=== PATIENT | female | born 1985 | race Caucasian/White ===

== ENCOUNTER → 2023-03-04 09:40 | Outpatient (CLI) | payer BC, SELFPAY ==
--- NOTE | ~2023-03-04 | US_ITS ---
EXAMINATION: US pelvic complete w TV DATE: 03/04/2023 10:06 INDICATION: Unspecified ovarian cyst, unspecified side. TECHNIQUE: Multiple transabdominal and transvaginal sonographic images of the pelvis were obtained. COMPARISON: None. FINDINGS: TRANSABDOMINAL ULTRASOUND: The uterus measures 8.4 x 4.6 x 5.2 cm. There is physiologic free fluid in the pelvis. TRANSVAGINAL ULTRASOUND: The endometrial complex measures 8 mm in thickness. There are small nabothian cysts in the cervix. Th e right ovary measures 3.3 x 2.2 x 2.9 cm. There is normal vascular flow in right ovary. The left ova ry is not visualized. IMPRESSION: 1. Normal right ovary. 2. Left ovary not visualized. The patient reports a history of left oophorectomy. Reviewed, dictated and finalized at location A. IMPRESSION: 1. Normal right ovary. 2. Left ovary not visualized. The patient reports a history of left oophorectom y.
== END ==
PROVIDERS: PCP Physician Assistant; Visit Provider Obstetrics & Gynecology
DX: N83.209 Unspecified ovarian cyst, unspecified side (principal)
CPT/HCPCS: 76830; 76856

== ENCOUNTER 2024-01-02 10:15 | Outpatient (CLI) | payer BC, SELFPAY ==
--- NOTE | ~2024-01-02 | MMUS_ITS ---
EXAMINATION: MM diagnostic kassandra BI w elinor, US breast BI complete HISTORY: Microcalcification follow-up TECHNIQUE: ML, MLO and CC 3-D tomosynthesis images of both breasts. were performed and synthetic 2-D images were generated. CAD analysis was submitted and interpreted. High resolution complete bilateral breast ultrasound examination including all 4 quadrants and subareolar area of each breast was perfo rmed. COMPARISON: 07/17/2023 bilateral screening mammogram BREAST PARENCHYMAL COMPOSITION: The breasts are heterogeneously dense, which may obscure small masses . FINDINGS: MAMMOGRAPHIC FINDINGS: Numerous bilateral benign-appearing microcalcifications are noted. No suspicious mass or architectura l distortion, malignant calcification, skin thickening or retraction or significant new or developing density is detected. ULTRASOUND: Right breast: 4:00 1 cm from nipple: 6.2 x 6.5 x 5.6 mm septated cyst 6:00 3 cm from nipple: 5.6 x 9.6 x 8.2 mm cyst 7:00 4 cm from nipple: 3.3 mm cyst Anechoic 4 cm from nipple: 8 x 8.2 x 5 mm cyst Limited colectomy centimeters from nipple: 8 x 5.6 x 8 mm cyst 11:00 2 cm from nipple: 10 x 11.5 x 4.7 mm mildly septated cyst Left breast: 2:00 3 cm from nipple: 4 x 5.2 mm cyst 5:00 1 cm from nipple, a well-circumscribed hypoechoic 8 x 3.5 x 7.5 mm solid area without internal v ascularity posterior shadowing, benign in appearance IMPRESSION: 1. No evidence of malignancy 2. Routine annual mammographic screening is recommended BI-RADS Category 2: Benign finding(s). Reviewed, dictated and finalized at location A. IMPRESSION: 1. No evidence of malignancy 2. Routine annual mammographic screening is recommended BI-RADS Category 2: Benign finding(s).
== END 2024-01-02 10:16 | disposition home or self-care (01) ==
LOC: ANHIMG 10:16
PROVIDERS: PCP Physician Assistant; Visit Provider Surgery
DX: R92.8 Other abnormal and inconclusive findings on diagnostic imaging of breast (principal); R92.0 Mammographic microcalcification found on diagnostic imaging of breast
CPT/HCPCS: 76641; 77062; 77066; G0279

== ENCOUNTER 2024-07-06 12:44 | Outpatient (CLI) | payer BC, SELFPAY ==
--- NOTE | ~2024-07-06 | MMUS_ITS ---
EXAMINATION: US breast BI complete, MM diagnostic kassandra BI w elinor HISTORY: Follow-up breast masses TECHNIQUE: Additional 3-D tomosynthesis images of the breasts were performed and synthetic 2-D images were generated. CAD analysis was submitted and interpreted. High resolution bilateral complete breas t ultrasound was performed. COMPARISON: Comparison to multiple prior studies sequentially, with oldest reviewed study dated 07/03. BREAST PARENCHYMAL COMPOSITION: Dense: The breasts are extremely dense, which lowers the sensitivity of mammography. FINDINGS: MAMMOGRAPHIC FINDINGS: There are bilateral breast masses some of which are smaller and some increase in size compared with p rior examination. Many of these were characterized as benign cyst on prior study. There are scattered benign calcifications. No architectural distortion or suspicious calcifications. ULTRASOUND: Complete US of all 4 quadrants of the breast/s and retroareolar region was reviewed. Right breast: At 4:00, 1 cm from the nipple there is a cluster of cysts, largest measuring 7 mm. At 6 :00, 3 cm from the nipple there is a 11 mm cyst. At 7:00, 4 cm from the nipple there is a 5 mm cyst. At 9:00, 4 cm from the nipple there is a 1.3 cm cyst. At 11:00, 2 cm from the nipple there is a compl icated 1.3 cm cyst with low-level internal echoes. Left breast: There are multiple cysts of the left breast. There is a new irregular shaped hypoechoic 8 mm mass at 3:00, 5 cm from the nipple with posterior acoustic enhancement and no internal vasculari ty. The mass seen in prior examination and the left breast at 5:00, 1 cm from the nipple is not seen currently. IMPRESSION: 1. New irregular shaped left breast mass at 3:00, 5 cm from the nipple measuring 8 mm. 2. Ultrasound-guided left breast biopsy recommended. BI-RADS category 4, suspicious findings. Reviewed, dictated and finalized at location B. H PIECER IMPRESSION: 1. New irregular shaped left breast mass at 3:00, 5 cm from the nipple measurin g 8 mm. 2. Ultrasound-guided left breast biopsy recommended. BI-RADS category 4, suspicious findings.
== END 2024-07-06 12:45 | disposition home or self-care (01) ==
LOC: ANHIMG 12:45
PROVIDERS: PCP Physician Assistant; Visit Provider Surgery
DX: N63.25 Unspecified lump in the left breast, overlapping quadrants (principal); R92.8 Other abnormal and inconclusive findings on diagnostic imaging of breast; R92.0 Mammographic microcalcification found on diagnostic imaging of breast
CPT/HCPCS: 76641; 77062; 77066; G0279

== ENCOUNTER 2024-08-10 08:30 | Outpatient (CLI) | payer BC, SELFPAY ==
--- NOTE | ~2024-08-10 | MMUS_ITS ---
US breast biopsy LT w image, MM post biopsy diagnostic LT EXAMINATION: US GUIDED NEEDLE BIOPSY WITH VACUUM ASSISTANCE DATE: 08/10/2024 09:45 MEDICAL INSURANCE BILLER INDICATION: Left breast mass seen on prior examination. Ultrasound-guided core biopsy is requested t o evaluate for malignancy. BREAST PARENCHYMAL COMPOSITION: Dense: The breasts are extremely dense, which lowers the sensitivity of mammography. TECHNIQUE AND FINDINGS: The risks and potential benefits of the procedure were discussed with the patient, and written inform ed consent was obtained. After sterile preparation of the left breast, 1% lidocaine was utilized for local anesthesia. 1% lidocaine with epinephrine was used for deep anesthesia. A 10G vacuum-assisted biopsy gun needle was advanced through to the outer edge of the region of inter est from a lateral approach utilizing sonographic guidance. A total of 4 tissue core samples were ob tained through the lesion. An Inrad tissue marker clip was then placed at the biopsy site. Hemostasi s was achieved. The patient tolerated procedure well and there was no evidence of immediate complication. The patien t was given verbal instructions partly is from the department. Left breast mammograms to document ti ssue marker clip placement. The tissue samples were submitted to surgical pathology for histologic an alysis. IMPRESSION: 1. Successful ultrasound-guided vacuum-assisted biopsy of left breast mass with post procedure mammo gram for marker placement. Please refer to pathology report for histologic analysis. Reviewed, dictated and finalized at location B. [employer] INSURANCE BILLER IMPRESSION: 1. Successful ultrasound-guided vacuum-assisted biopsy of left breast mass wit h post procedure mammogram for marker placement. Please refer to pathology repo rt for histologic analysis.
== END 2024-08-10 08:31 | disposition home or self-care (01) ==
PROVIDERS: PCP Physician Assistant; Visit Provider Physician Assistant Surgical
DX: R92.8 Other abnormal and inconclusive findings on diagnostic imaging of breast (principal); N60.12 Diffuse cystic mastopathy of left breast; N62 Hypertrophy of breast; Z98.890 Other specified postprocedural states
CPT/HCPCS: 19083; 77065; 88305; A4648

== ENCOUNTER 2024-10-14 13:08 | Outpatient (CLI) | payer BC, SELFPAY ==
--- NOTE | ~2024-10-14 | MMUS_ITS ---
EXAMINATION: US breast RT complete, MM diagnostic kassandra RT w elinor HISTORY: History of cyst. Palpable abnormality. TECHNIQUE: Additional 3-D tomosynthesis images of the right breast were performed and synthetic 2-D i mages were generated. CAD analysis was submitted and interpreted. High resolution complete right alvarez st ultrasound was performed. COMPARISON: Comparison to multiple prior studies sequentially, with oldest reviewed study dated 07/03. BREAST PARENCHYMAL COMPOSITION: Dense: The breasts are extremely dense, which lowers the sensitivity of mammography. FINDINGS: MAMMOGRAPHIC FINDINGS: There are multiple benign scattered breast calcifications. There are obscured masses throughout the r ight breast. There is no architectural distortion. ULTRASOUND: Complete US of all 4 quadrants of the breast/s and retroareolar region was reviewed. There are multip le cysts scattered throughout the right breast, largest measuring 1.4 cm at 6:00, 3 cm from the nippl e and 1.4 cm at 9:00, 4 cm from the nipple. No suspicious masses to suggest malignancy. IMPRESSION: 1. Multiple right breast cysts corresponding to masses identified on mammography. No evidence for mal ignancy. 2. Routine yearly screening mammogram and regular clinical breast examination are recommended. BI-RADS Category 2: Benign finding(s). Reviewed, dictated and finalized at location B. NO SLOT SUPERVISOR IMPRESSION: 1. Multiple right breast cysts corresponding to masses identified on mammograph y. No evidence for malignancy. 2. Routine yearly screening mammogram and regular clinical breast examination a re recommended. BI-RADS Category 2: Benign finding(s).
--- OUTSIDE RECORDS SUMMARY | 2024-10-14 13:18 | XMS_ITS | Encounter Summary ---
Author Organization [facility] Healthcare Address [address] [place] [id number] Care Team Providers Care Director Compliance Name Role Phone Sara Dutton Primary Care Prov ider Reason for Referral * Diagnostic Imaging (Routine) - Pending Review Specialty Diagnoses / Procedures Referred By Contac t Referred To Contact Diagnoses Breast cyst, right Procedures US Breast Limited right Anatoly Gill MD [address] [place] [address] [address] [place] [id number] Phone: tel: fax: External Order Referral ID Status Reason Start Date Expiration Date V isits Requested Visits Authorized [id number] Pending Review 09/30/2024 10/30/2025 1 1 OLEUM PLANT OPERATOR * Diagnostic Imaging (Routine) - Authorized Specialty Diagnoses / Procedures Referred By Contac t Referred To Contact Diagnoses Breast cyst, right Procedures Diagnostic Mammogram Right W Rony Anatoly Gill MD [address] [place] [address] [address]OU[address] [place] [id number] Phone: tel: fax: External Order Referral ID Status Reason Start Date Expiration Date V isits Requested Visits Authorized [id number] Authorized 09/30/2024 10/30/2025 1 1 OLEUM PLANT OPERATOR Reason for Visit * Reason Onset Date Comments Right Breast, Cyst 09/30/2024 Encounter Details Date Type Department Care Team (Late st Contact Info) Description 09/30/2024 Telephone [facility] [address] [place] [id number] Anatoly Gill MD 4 [facility] [address] [place] [address] Right Breast, Cyst Social History Tobacco Use Types Packs/Day Years Used Date Smoking Tobacco: Never Smokeless Tobacco: Never Alcohol Use Standard Drinks/Week Comments No 0 (1 standard drink = 0.6 oz pur e alcohol) Humiliation, Afraid, Rape, and Kick questionnair e Answer Date Recorded Within the last year, have y ou been afraid of your partner or ex-partner? No 09/25/2023 Within the last year, have y ou been humiliated or emotionally abused in other ways by your partner or ex-partner? No Within the last year, have y ou been kicked, hit, slapped, or otherwise physically hurt by your partner or ex-partner? No 09/25/2023 Within the last year, have y ou been raped or forced to have any kind of sexual activity by your partner or ex-partner? No 09/25/2023 AUDIT-C Answer Date Recorded Q1: How often do you have a drink containing alcohol? Never 09/25/2023 Q2: How many drinks containi ng alcohol do you have on a typical day when you are drinking? Patient does not drink Q3: How often do you have si x or more drinks on one occasion? 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 They will do the right breast US, but requesting the right Diagnostic MMG just in case. Order faxed to [phone]. Pt aware. Pt to call back with appt date. OLEUM PLANT OPERATOR * Telephone Encounter - Catrachita Pratt RN - 09/30/2024 10:22 AM PETROLEUM PLANT OPERATOR Pt had a Bilateral Diagnostic MMG and US at [facility] (see under Media) on 07-10-24 that was a bi rads 4, of the left breast. Right breast had multiple cysts noted. See report. Pt came in to the office yesterday for her WWE and has started to feel the 6:00 right breast cyst, which she hasn't felt before. JT wanted a 3 month right breast US for a follow up to eval the cyst. LMOM with [facility] MMG Dept to see if they can get her in. Will request pathology to scan in of the left breast as well. OLEUM PLANT OPERATOR documented in this encounter Plan of Treatment Scheduled Orders Name Type Priority Associated Diagnoses Orde r Schedule Diagnostic Mammogram Right W Rony Imaging Schedule Routine, Read Routine (OP Routine) Breast cyst, right Expected: 09/30/2024, Expires: 11/28/2025 US Breast Limited right Imaging Schedule Routine, Read Routine (OP Routine) Breast cyst, right Expected: 09/30/2024, Expires: 11/28/2025 documented as of this encounter Visit Diagnoses Diagnosis Breast cyst, right- Primary documented in this encounter Care Teams Director Compliance Relationship Specialty Start Date End Date Sara Dutton PA PCP - General Neurosurgery 09/25/23 documented as of this encounter
--- OUTSIDE RECORDS SUMMARY | 2024-10-14 13:18 | XMS_ITS | Clinical Summary ---
Author Organization [facility] Address [address] [place] [address] Phone Care Team Providers Care Day Care Aide Name Role Phone Unavailable Unavailable Unavailable Reason for Visit and Chief Complaint * PHONE CALL Problems Includes: Problems addressed during this encounter and other active Problems All Visits Onset Date Resolved Date Provider Condition S tatus Mitral Valve Prolapse 11/07/2016 CARIN GILL RN NP BC Active Last Documented On 7 3:44PM ; [facility] Previous Leep 11/01/2014 EDOUARD SCHMITZ NP-BC Active Last Documented On 5 3:37PM ; [facility] Asthma 12/16/2013 EDOUARD SCHMITZ NP-BC Act abad Last Documented On 4 11:15AM ; [facility] ANXIETY STATE NOS 07/18/2012 TWAN MONTGOMERY MD A ctive Last Documented On 2 3:33PM ; [facility] Herpes Simplex Type II 07/18/2012 CARIN GILL RN NP BC Active Last Documented On 7 4:09PM ; [facility] HYPERTENSION NOS 07/18/2012 TWAN MONTGOMERY MD Ac tive Last Documented On 2 3:28PM ; [facility] 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 TWAN Saavedra MD Active Last Documented On 2 3:30PM ; [facility] Plan of Treatment No Plan of Treatment Recorded Assessments Includes: Assessments from this encounter No Assessments Recorded Medical Equipment - Implanted Devices Includes: Current Devices No Medical Equipment Recorded Medications Includes: Medications discussed during this encounter and other current Medications Current Medications (continue as prescribed) Nystatin [id number] External Cream 11/07/2016 Pro vider: Diagnosis: Last Documented On 11/07/2016 3:53PM By NICOLE LI MA ; [facility] Advair Diskus 250-50 MCG/DOSE IN AEPB 07/18/2012 Pro vider: Diagnosis: once daily. Last Documented On 2 3:08PM By MESSI DEL ANGEL LPN ; [facility] Past Medications on file ValACYclovir HCl 500MG Oral Tablet 12/03/2017 - 11/28/2018 Provider: CARIN WOODALL Diagnosis: Herpesviral infe ction, unspecified 1 daily Last Documented On 8 11:47AM By CARIN DOAN ; [facility] Terconazole 0.4% Vaginal Cream 11/11/2017 - 12/02/2017 Provider: CARIN WOODALL Diagnosis: Acute vulvitis as directed apply bid to perineum Last Documented On 8 4:21PM By CARIN DOAN ; [facility] Classic 28-0.8MG Oral Tablet 11/11/2017 - 11/06/2018 Provider: CARIN WADE Diagnosis: Encounter for ot h general cnsl and advice on procreation 1 daily Last Documented On 8 4:21PM By CARIN DOAN ; [facility] Plus 27-1MG Oral Tablet 11/07/2016 - 11/02/2017 Provider: CARIN WOODALL Diagnosis: Encounter for ot h general cnsl and advice on procreation TAKE DIRECTED W/FOOD Last Documented On 7 4:22PM By CARIN DONA ; [facility] Azithromycin 500MG Oral Tablet 11/07/2016 - 11/08/2016 Provider: CARIN WADE Diagnosis: Acute vaginitis as directed 2 TABLETS NOW Last Documented On 7 4:39PM By CARIN DOAN ; [facility] Terconazole 0.4% Vaginal Cream 11/07/2016 - 11/21/2016 Provider: CARIN WOODALL BC Diagnosis: Acute vaginitis 1 ADELINE IN VAGINA EVERY NIGHT X 7 USE 2 TIMES DAILY TO PERINEUM Last Documented On 7 4:39PM By CARIN MENDIOLA ; [facility] Valtrex 500 MG Tablet 11/17/2015 - 11/11/2016 Provider: EDOUARD MENDIOLA Diagnosis: Herpesviral infe ction, unspecified One tablet daily Last Documented On 6 10:44AM By EDOUARD SCHMITZ MARI ; [facility] Ibuprofen 600 MG Tablet 03/29/2015 - 04/03/2015 Provider: CARIN GILL RN CHRISTA BC Diagnosis: Inflam Disease O f Breast 1 every 6 hours as needed US E DIRECTED W/FOOD Last Documented On 5 4:01PM By CARIN MENDIOLA ; [facility] Bactrim DS 800-160 MG Tablet 03/29/2015 - 04/08/2015 Provider: CARIN GILL RN CHRISTA BC Diagnosis: Inflam Disease O f Breast One tablet twice a day ONE T AB 2 TIMES A DAY WITH FOOD Last Documented On 5 3:51PM By CARIN MENDIOLA ; [facility] Cephalexin 250 MG OR CAPS 07/27/2014 - 07/30/2014 Prov ider: TWAN MONTGOMERY MD Diagnosis: Last Documented On 07/27/2014 9:11AM By TWAN MONTGOMERY MD ; [facility] Levothyroxine Sodium 50 MCG OR TABS 07/13/2014 - 09/11/2014 Provider: TWAN MONTGOMERY MD Diagnosis: Last Documented On 07/13/2014 4:36PM By TWAN MONTGOMERY MD ; [facility] Macrobid 100 MG OR CAPS 06/03/2014 - 06/10/2014 Provid er: EDOUARD MENDIOLA Diagnosis: DYSURIA Last Documented On 4 2:55PM By EDOUARD SCHMITZ MARI ; [facility] Macrobid 100 MG OR CAPS 02/15/2014 - 02/22/2014 Provid er: TWAN MONTGOMERY MD Diagnosis: Last Documented On 02/15/2014 4:26PM By TWAN MONTGOMERY MD ; [facility] Levora 0.15/30 (28) 0.15-30 MG-MCG OR TABS 04/27/2013 - 08/10/2013 Provider: TWAN MONTGOMERY MD Diagnosis: TAKE 1 TABLET BY MOUTH DAILY CONTINUOUSLY. SKIP PLACEBO TABLETS. Last Documented On 04/27/2013 9:28AM By TWAN MONTGOMERY MD ; [facility] Valtrex 500 MG OR TABS 09/01/2012 - 08/27/2013 Provide r: TWAN MONTGOMERY MD Diagnosis: TAKE ONE TABLET BY MOUTH DAILY Last Documented On 09/01/2012 10:40AM By TWAN MONTGOMERY MD ; [facility] Machelle 3-0.03 MG OR TABS 05/18/2012 - 06/15/2012 Provid er: TWAN MONTGOMERY MD Diagnosis: TAKE 1 TABLET BY MOUTH DAILY Last Documented On 05/18/2012 7:36PM By TWAN MONTGOMERY MD ; [facility] Ocella 3-0.03 MG OR TABS 07/25/2010 - 06/26/2011 Provi marine: TWAN MONTGOMERY MD Diagnosis: Last Documented On 07/25/2010 10:13AM By TWAN MONTGOMERY MD ; [facility] Shante 28 3-0.03 MG OR TABS 07/04/2010 - 06/05/2011 Pr ovider: TWAN MONTGOMERY MD Diagnosis: Last Documented On 07/04/2010 9:04AM By TWAN MONTGOMERY MD ; [facility] Valtrex 500 MG OR TABS 12/29/2009 - 06/27/2010 Provide r: TWAN MONTGOMERY MD Diagnosis: Last Documented On 12/29/2009 9:25AM By TWAN MONTGOMERY MD ; [facility] Medications Administered Includes: Administered Medications from this encounter No Administered Medications Recorded Results Includes: Results discussed during this encounter No Results Recorded For Specified Dates History of Present Illness Includes: History of Present Illness from this encounter No History of Present Illness Recorded Social History No Social History Recorded - Smoking Status Unknown Medical History Includes: Medical History addressed during this encounter No Medical History Recorded Family History Includes: Family History addressed during this encounter Description Last Updated Fraternal history of hypercholesterolemi a dad 11/03/2015 Last Documented On 8 9:49AM ; [facility] Maternal grandmother's history of malign ant female breast neoplasm MGM 11/03/2015 Last Documented On 8 9:49AM ; [facility] Maternal history of hypertension mom 11/2015 Last Documented On 8 9:49AM ; [facility] Paternal grandmother's history of diabet es mellitus PGM and PGF 11/03/2015 Last Documented On 8 9:49AM ; [facility] Spouse name: Kun 12/16/2013 Last Documented On 8 9:49AM ; [facility] Family history of hypercholesterolemia d ad 12/16/2013 Last Documented On 8 9:49AM ; [facility] Family history of hypertension mom 12/16 Last Documented On 8 9:49AM ; [facility] Family history of diabetes mellitus PGM and PGF 09/07/2013 Last Documented On 8 9:49AM ; [facility] Family history of malignant female breas t neoplasm MGM 09/07/2013 Last Documented On 8 9:49AM ; [facility] Family history of Cancer 10/06/2009 Last Documented On 8 9:49AM ; [facility] Family history of Diabetes 10/06/2009 Last Documented On 8 9:49AM ; [facility] Family medical history of high blood pre ssure 10/06/2009 Last Documented On 8 9:49AM ; [facility] Review of Systems Includes: Review of Systems from this encounter No Review of Systems Recorded Mental Status Includes: Mental Status from this encounter No Mental Status Recorded Functional Status Includes: Functional Status from this encounter No Functional Status Recorded Physical Exam Includes: Physical Exam from this encounter No Physical Exam Recorded Allergies Includes: Active Allergies Substance Type Reaction Onset Date Resolved Date Statu s Penicillin V Potassium Allergy Skin Rash es / Eruption of skin, Hives / Urticaria 08/06/2013 Active Last Documented On 8 2:18PM ; [facility] Macrobid Allergy 11/07/2016 Active Last Documented On 8 2:18PM ; [facility] Amoxicillin Allergy Skin Rashes / Er uption of skin, Hives / Urticaria 11/07/2016 Active Last Documented On 8 2:18PM ; [facility] Encounters Encounter Provider Location Date Check-In Time Check-Out Time Diagnosis * PHONE CALL TWAN MONTGOMERY MD 12/25/2017 9:48AM 11:59PM Clinical Notes Includes: Clinical Notes from this encounter No Clinical Notes Recorded
--- OUTSIDE RECORDS SUMMARY | 2024-10-14 13:18 | XMS_ITS | Clinical Summary ---
Author Organization [facility] Address [address] [place] [address] Phone Care Team Providers Care Automotive Tire Technician Name Role Phone Unavailable Unavailable Unavailable Reason for Visit and Chief Complaint PELVIC W/TVT Problems Includes: Problems addressed during this encounter and other active Problems All Visits Onset Date Resolved Date Provider Condition S tatus Mitral Valve Prolapse 11/07/2016 CARIN GILL RN NP BC Active Last Documented On 7 3:44PM ; [facility] Previous Leep 11/01/2014 EDOUARD SCHMITZ NP-BC Active Last Documented On 5 3:37PM ; [facility] Asthma 12/16/2013 EDOUARD SCHMITZ NP-BC Act abad Last Documented On 4 11:15AM ; [facility] ANXIETY STATE NOS 07/18/2012 TWAN MONTGOMERY MD A ctive Last Documented On 2 3:33PM ; [facility] Herpes Simplex Type II 07/18/2012 CARIN GILL RN NP BC Active Last Documented On 7 4:09PM ; [facility] HYPERTENSION NOS 07/18/2012 TWAN MONTGOMERY MD Ac tive Last Documented On 2 3:28PM ; [facility] 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 TWAN Saavedra MD Active Last Documented On 2 3:30PM ; [facility] Plan of Treatment No Plan of Treatment Recorded Assessments Includes: Assessments from this encounter No Assessments Recorded Medical Equipment - Implanted Devices Includes: Current Devices No Medical Equipment Recorded Medications Includes: Medications discussed during this encounter and other current Medications Current Medications (continue as prescribed) Nystatin [id number] External Cream 11/07/2016 Pro vider: Diagnosis: Last Documented On 11/07/2016 3:53PM By NICOLE LI MA ; [facility] Advair Diskus 250-50 MCG/DOSE IN AEPB 07/18/2012 Pro vider: Diagnosis: once daily. Last Documented On 2 3:08PM By MESSI DEL ANGEL LPN ; [facility] Medications Administered Includes: Administered Medications from this [...] Includes: Family History addressed during this encounter No Family History Recorded Review of Systems Includes: Review of Systems [...] Active Last Documented On 8 2:18PM ; [facility] Macrobid Allergy 11/07/2016 Active Last Documented On 8 2:18PM ; [facility] Amoxicillin Allergy Skin Rashes / Er uption of skin, Hives / Urticaria 11/07/2016 Active Last Documented On 8 2:18PM ; [facility] Encounters Encounter Provider Location Date Check-In Time Check-Out Time Diagnosis PELVIC W/TVT TWAN MONTGOMERY MD [facility] [employer] 8 7:42AM 8:03AM Clinical Notes Includes: Clinical Notes from this encounter No Clinical Notes Recorded
--- OUTSIDE RECORDS SUMMARY | 2024-10-14 13:18 | XMS_ITS | Encounter Summary ---
Author Organization [facility] Address [address] [place] [address] Phone Care Team Providers Care Grant Writer Name Role Phone Sara Dutton PAC Primary Care Pro vider Linus Eldridge MD Unavailable Beatriz Snyder APRN, ASSOCIATE PROGRAMMER Unavailable Reason for Visit * Reason Comments Medication Refill Encounter Details Date Type Department Care Team (Late st Contact Info) Description 06/20/2023 Refill [facility] - Internal Medicine - [place] [address] [place] [address] Sara Dutton, PAC [address] [place] [address] Medication Refill Social History Tobacco Use Types Packs/Day Years Used Date Smoking Tobacco: Never Smokeless Tobacco: Never Alcohol Use Standard Drinks/Week Comments No 0 (1 standard drink = 0.6 oz pur e alcohol) PHQ-2 Answer Date Recorded Total Score - Questions 1-9 4 06/03 Education Answer Date Recorded What is the highest level of school you have completed or the highest degree you have received? 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 Internal Medicine [facility] [address] [place] [address] Sara Dutton, [facility] [address] [place] [address] 01/11/2025 1:15 PM CDT Office Visit [facility] [address] [place] [phone] Linus Eldridge MD [address] [place] [phone] documented as of this encounter Goals Goal Patient Goal Type Associated Problems Recent Progress Patient-Stated? Author Behavioral Health Behavioral Health On track(2021 9:10 AM CDT) Yes Hiral Gardner LCSW Note: I need to cope better with my anxiety Goal/Objective: Decrease anxiety. Anticipated Time Frame for Goal Completion: 6 months Goal Reviewed with: patient Readiness to change: Ready to change Department associated with goal: [facility] Steps to achieve goal: will identify at least two coping skills/activities/habits that have helped to manage anxiety in the past. will identify at least three new coping skills/activities/habits that may help to prevent and/or cope with anxiety. 3. will identify a plan to implement coping skills and follow this plan for two weeks and evaluate the impact on anxiety 4. Will attend individual and/or group therapy at least 1x/month at least 6 sessions anxiety Behavioral Health On track(2021 9:10 AM CDT) No Hiral Gardner LCSW Note: Goal/Objective: Increase coping skills to manage stress. Anticipated Time Frame for Goal Completion: 6 months Goal Reviewed with: patient Readiness to change: Ready to change Department associated with goal: [facility] Steps to achieve goal: will attend counseling/psychotherapy at least 6 sessions at least once monthly, utilizing individual and/or group sessions to express thoughts and feelings. will verbalize understanding of depression and anxiety, ex: causes/contributing and risk factors, prevalence of conditions in the general population. will identify two or more skills to gain peace and relieve stress. documented as of this encounter Visit Diagnoses Not on filedocumented in this encounter Additional Health Concerns Infection Onset Date Last Indicated Resolved Time COVID - 19 09/12/2023 09/12/2023 09/22/2023 12:1 6 AM IRONER Assessment Noted Time PHQ-9 Depression Total Score: 4 06/21/20 22 8:00 AM CDT documented as of this encounter Care Teams Grant Writer Relationship Specialty Start Date End Date Sara Dutton PAC [address] [place] [address] PCP - General Physician Bear Keeper 10/15/17 Linus Eldridge MD [address] [place] [address] Consulting Physician Pulmonary Disease 12/07/21 Beatriz Snyder APRN, ASSOCIATE PROGRAMMER [address] [place] [address] Nurse Practitioner Advanced Practice Nurse 03/14/23 documented as of this encounter
--- OUTSIDE RECORDS SUMMARY | 2024-10-14 13:18 | XMS_ITS | Encounter Summary ---
Author Organization [facility] Address [address] [place] [address] Care Team Providers Care Director Of Extension Work Name Role Phone Sara Dutton PA-C Primary Care Pr ovider Encounter Details Date Type Department Care Team (Late Contact Info) Description 03/06/2020 Lab Requisition [facility] [address] [place] [address] Unknown, Provider Social History Tobacco Use Types Packs/Day Years Used Date Smoking Tobacco: Never Assessed Sex and Gender Information Value Date Recorded Sex Assigned at Not on file Gender Identity Not on file Sexual Orientation Not on file documented as of this encounter Plan of Treatment Upcoming Encounters Date Type Department Care Team (Late Contact Info) Description 11/09/2024 1:15 PM CDT Office Visit [facility] - General Surgery [address] [place] [phone] [place] MD [facility] [address] [place] [id number] documented as of this encounter Procedures Procedure Name Priority Date/Time Associated Diagnosis Comments SARS-COV-2 (COVID-19) IN HOUSE Routine 03/05/2020 10:20 AM CDT documented in this encounter Results * SARS-COV-2 (COVID-19) IN HOUSE (03/05/2020 10:20 AM CDT) COVID-19 PCR Not detected Not detected, Invalid 03/07/2020 6:16 AM CDT [facility] Microbiology SPECIMEN FROM NASOPHARYNGEAL STRUCTURE / Unknown Collection / Unknown 03/05/2020 10:20 AM CDT 03/06/2020 1:32 PM CDT Narrative [facility] - 03/07/2020 6:16 AM CDT This Real Time RT-PCR assay was developed and its performance characteristics determined by [facility]. This test has been authorized by the Food and Drug administration (FDA)under an Emergency Use Authorization (EUA). This test has been validated in accordance with the FDA's guidance document Policy for Diagnostic Testing in Laboratories Certified to perform High Complexity Testing under CLIA prior to Emergency Use Authorization for Coronavirus Disease-2019 during the Public Health Emergency issued on October 31, 2019. FDA independent review of this validation is pending. This test is only authorized for the duration of time the declaration that circumstances exist justifying the authorization of emergency use of in vitro diagnostic tests for detection of SARS-CoV-2 virus and/or diagnosis of COVID-19 infection under section 564(b)(1) of the Act, 21 U.S.C 360bbb-3 (b)(1), unless the authorization is terminated or revoked sooner. Provider Unknown LAB - MICROBIOLOGY O RDERABLES [facility] [address] [place], [place] [address], [facility] [phone] documented in this encounter Visit Diagnoses Not on filedocumented in this encounter Additional Health Concerns Infection Onset Date Last Indicated Resolved Time COVID-19 Under Investigation 03/06/2020 03/05/2020 03/07/2020 6:16 AM CDT documented as of this encounter Care Teams Director Of Extension Work Relationship Specialty Start Date End Date Sara Dutton PA-C [address] [place] [address] PCP - General Physician Livestock Yard Attendant 09/30/23 documented as of this encounter
--- OUTSIDE RECORDS SUMMARY | 2024-10-14 13:18 | XMS_ITS | Clinical Summary ---
Author Organization [facility] Address [address] [place] [address] Care Team Providers Care Operations Administrator Name Role Phone Sara Dutton Primary Care Prov ider Allergies Active Allergy Reactions Criticality Noted Date Comments Amoxicillin Buspirone Other (See comments) Low 06/21/2022 insomnia Escitalopram Nausea only Low 06/21/2022 Fatigue; nausea Nitrofurantoin Other Unknown 09/25/2023 PCN Penicillins Sulfa (Sulfonamide Antibiotics) Shortness of breath High 05/30/2018 Sulfamethazine Shortness of breath High 12/18/2017 Medications albuterol HFA (PROAIR HFA) 90 mcg/actuation inhaler inhale 2 puff by inhalation route every 4 - 6 hours as needed 0 Inhaler 0 6 Active fluticasone-sa lmeterol (ADVAIR DISKUS) 100-50 mcg/dose diskus inhaler inhale 1 puff by inhalation route 2 times every day in the morning and evening approximately 12 hours apart 1 5 5 Active famotidine (PEPCID) 20 mg tablet Take 1 tablet (20 mg total) by mouth 2 (two) times a day 3 Active Active Problems Problem Noted Date Diagnosed Date Endometriosis 04/26/2024 Overview (04/26/2024): Of right diaphragm with pneumothorax status post surgery at [facility] March 14. History of pneumothorax 04/26/2024 Overview (04/26/2024): Secondary to endometriosis of the right diaphragm treated by thoracic surgery at [facility] on March 14, 2024. Malignant melanoma of left u pper extremity including shoulder 09/25/2023 Asthma 02/08/2015 Overview (12/06/2016): Asthma Encounters Date Type Department Care Team Description 09/30/2024 Telephone [facility] [address] [facility] [address] [place] [address] Anatoly Gill MD Right Breast, Cyst 09/29/2024 1:15 PM TELE MARKETING EXECUTIVE Office Visit [facility] [address] [place] [address] Anatoly Gill MD Well woman exam (Primary Dx); Encounter for screening mammogram for malignant neoplasm of breast; Breast cyst, right; History of pneumothorax from Last 3 Months Immunizations Name Administration Dates Next Due Pneumococcal Polysaccharide PPV23 08/09/2015 Surgical History Surgery Date Site/Laterality Comments OTHER SURGICAL HISTORY L ovary removed laperoscope 10/2006 OTHER SURGICAL HISTORY oophorectomy of left ovary OTHER SURGICAL HISTORY 2013 : OTHER SURGICAL HISTORY 2017 Incomplete AB: Suction D and C CERVICAL BIOPSY W/ LOOP ELECTRODE EXCISION DILATION AND CURETTAGE OF UTERUS Medical History Medical History Date Comments Hx Other Medical 10/2006 endometriosis; Comments: KOBY 08/03/2016 - Asthma Asthma; Comments : KOBY 08/03/2016 - Disorder of thyroid Thyroid dise ase Exposure to genital herpes Genit al herpes, exposure Hx Other Medical ; Outc ome: 40W0D week 7lb(s) 5 oz Male Hx Other Medical Incomplete AB Abnormal Pap smear of cervix Melanoma (HCC) Family History Medical History Relation Name Comments Hyperlipidemia Father High Choleste rol; Breast cancer Maternal Grandmother Cancer , breast; Hypertension Mother Hypertension; Heart disease Paternal Grandfather Heart disease; Ovarian cancer Neg Hx Thyroid cancer Neg Hx Relation Name Status Comments Father Maternal Grandmother Mother Paternal Grandfather Social History Tobacco Use Types Packs/Day Years Used Date Smoking Tobacco: Never Smokeless Tobacco: Never Tobacco Cessation:Counseling Given: Not Answered Alcohol Use Standard Drinks/Week Comments No 0 [...] on file Legal Sex Female 2:17 PM TELE MARKETING EXECUTIVE Gender Identity Not on file Sexual Orientation Not on file Obstetrics History Para Term AB IAB SAB Ectopic Multiple Livin g Live Births 3 2 2 1 1 2 2 Date Outcome GA Total Labor Labor/2nd/3rd Weight Sex Type Anes PTL [facility] A1 A5 Name Clin 07/22 14 Term 40w 0d 3.317 kg (7 lb 5 oz) M Vag-Spo nt Living 09/21 17 SAB 01/19 19 Term 3.317 kg (7 lb 5 oz) F Vaginal None Living Complications:None Last Filed Vital Signs Vital Sign Reading Time Taken Comments Blood Pressure 108/74 09/29/2024 1:25 PM TELE MARKETING EXECUTIVE Pulse 97 09/06/2017 5:41 PM TELE MARKETING EXECUTIVE Temperature 36.4 C (97.5 F) 09/06/2017 5:41 PM TELE MARKETING EXECUTIVE Respiratory Rate 16 09/06/2017 5:41 PM TELE MARKETING EXECUTIVE Oxygen Saturation 99% 09/06/2017 5:41 PM TELE MARKETING EXECUTIVE Inhaled Oxygen Concentration - - Weight 51.7 kg (114 lb) 09/29/2024 1:25 PM TELE MARKETING EXECUTIVE Height 162.6 cm (5' 4 ) 09/29/2024 1:25 PM TELE MARKETING EXECUTIVE Body Mass Index 19.57 09/29/2024 1:25 PM TELE MARKETING EXECUTIVE Plan of Treatment Health Maintenance Due Date Last Done Comments Depression Screening 1983 Hepatitis C Screening 1983 Hepatitis B Screening 2001 Varicella Vaccines (2 of 2 - 13+ 2-dose series) 08/12/2014 07/15/2014 Pneumococcal vaccine <65 (2 of 2 - PCV) 08/09/2016 08/09/2015 Covid-19 Vaccine ( season) 2024 06/08/2022, 08/02/2021, 11/22/2020, Additional history exists Influenza Vaccine (#1) 2024 , 06/05/2022, 06/08/2021, Additional history exists Breast Cancer Screening-Mammogram 08/13/2024 08/13/2023, 08/13/2023, 07/17/2023, Additional history exists Cervical Cancer Screening 09/29/20252024, 09/25/2023, 08/03/2016, Additional history exists Regular Well Visit/Exam 18-64 09/29/2025 09/29/2024, 09/25/2023 DTaP/Tdap/Td Vaccine (3 - Td or Tdap) 11/20/2028 11/20/2018, 09/02/2012 HPV Vaccines Aged Out No longer eligi ble based on patient's age to complete this topic Procedures Procedure Name Priority Date/Time Associated Diagnosis Comments PAP, REFLEX HPV Routine 09/29/2024 1:51 PM TELE MARKETING EXECUTIVE Well woman exam DIAGNOSTIC MAMMOGRAM BILATERAL W RONY Schedule Routine, Read Routine (OP Routine) 08/13/2023 8:40 AM TELE MARKETING EXECUTIVE Abnormal mammogram from Last 3 Months or Most Recently Relevant to Health Maintenance Results * Pap, reflex HPV (09/29/2024 1:51 PM TELE MARKETING EXECUTIVE) CLINICAL INFORMATION: [facility] [place] Comment:Routine exam LMP [facility] [place] Comment:09-22-24 Previous Pap [facility] [place] Comment:NONE GIVEN Prev. Bx [facility] [place] Comment:NONE GIVEN SOURCE: [facility] [place] Comment:Cervix, Endocervix Pap, specimen adequacy [facility] Comment: Satisfactory for evaluation. Endocervical/transformation zone component present. HPV interp [facility] Comment: Cytology Results: Negative for intraepithelial lesion or malignancy. COMMENTS [facility] [place] Comment: This Pap test has been evaluated with computer assisted technology. Gift Wrapper Zina Whitt In [facility] Comment: SXB, CT(ASCP) CT screening location: [facility] [place], [address] [place] [address] [place] [address] Maintenance Painter: JACKIE GARCIA MD, CLIA: [id number] Review material handling warehouse supervisor [facility] Comment: CXS, CT(ASCP) CT screening location: [facility] [place], [address] [place] [address] [place] [address] Maintenance Painter: JACKIE GARCIA MD, CLIA: [id number] Comment [facility] Comment: EXPLANATORY NOTE: The Pap is a screening test for cervical cancer. It is not a diagnostic test and is subject to false negative and false positive results. It is most reliable when a satisfactory sample, regularly obtained, is submitted with relevant clinical findings and history, and when the Pap result is evaluated along with historic and current clinical information. Thin prep 09/29/2024 1:51 PM TELE MARKETING EXECUTIVE 09/30/2024 1:52 AM TELE MARKETING EXECUTIVE us Anatoly Gill MD LAB CYTOLOGY ORDERABLES Fi nal Result [facility] [place] In [address], [facility] [place] [address] * (ABNORMAL) Diagnostic Mammogram Bilateral W [place] (08/13/2023 8:40 AM TELE MARKETING EXECUTIVE) Anatomical Region Laterality Modality Breast Bilateral Mammography 08/13/2023 11:0 2 AM TELE MARKETING EXECUTIVE Impressions 08/13/2023 11:02 AM TELE MARKETING EXECUTIVE 1. 0.9 cm group of punctate and round calcifications in the lower central posterior left breast. There are areas of the group that appears possibly linear. No definite layering is noted on the lateral view. Finding is at moderate suspicion for malignancy. Recommend stereotactic guided biopsy of the left breast. 2. The persistent focal asymmetries in the upper outer right breast at mid to posterior depth corresponds with multiple simple cysts and probably benign predominantly anechoic circumscribed masses with a septation and posterior acoustic enhancement but no internal flow measuring 0.6 cm and 0.5 cm at the 10 o'clock position 6 cm from the nipple and 11 o'clock position 8 cm from the nipple in the right breast respectively. 3. Corresponding with the partially effaced asymmetry on the lateral and MLO views of the left breast is a 0.8 cm circumscribed hypoechoic mass at the 3 o'clock position 7 cm from the nipple in the left breast. There is an additional similar appearing mass measuring 1 cm at the 4 to 5 o'clock position 7 cm from the nipple in the left breast. These findings are probably benign. OVERALL FINAL ASSESSMENT: SUSPICIOUS. BI-RADS Category 4B: Moderate suspicion for malignancy. RECOMMENDATION: 1. Stereotactically guided biopsy of the left breast for the 0.9 cm group of calcifications. 2. Bilateral diagnostic mammogram and sonogram in 6 months for the probably benign bilateral breast masses. Electronically signed by: Malissa Hernandez M.D. Narrative 08/13/2023 11:02 AM TELE MARKETING EXECUTIVE EXAMINATION: BILATERAL DIGITAL DIAGNOSTIC MAMMOGRAM INCLUDING CAD AND BILATERAL DIGITAL BREAST TOMOSYNTHESIS; BILATERAL BREAST SONOGRAM HISTORY: Further evaluation of screening mammogram detected 3 focal asymmetries in the right breast, MLO view asymmetry in the left breast, and calcifications in the left breast. COMPARISON: 07/17/2023 TECHNIQUE: Full field digital mammographic views of BOTH breasts were performed, including computer aided detection (CAD) and BILATERAL digital breast tomosynthesis (DBT). Directed ultrasound evaluation of BOTH breasts was performed. BREAST PARENCHYMAL COMPOSITION: The breasts are heterogenously dense, which may obscure small masses. MAMMOGRAM FINDINGS: Right breast: The 2 focal asymmetries in the central outer posterior right breast and the focal asymmetry in the upper outer mid right breast persists on spot compression. Left breast: There is partial effacement of the asymmetry in the central posterior left breast seen on the lateral and MLO views. There is redemonstration of the 0.9 cm group of punctate and round calcifications in the lower central posterior left breast. There are areas of the group that appears possibly linear. No definite layering is noted on the lateral view. SONOGRAM FINDINGS: Targeted sonogram of the upper outer mid to posterior right breast was performed. There are multiple simple cysts noted measuring up to 0.8 x 0.5 x 0.6 cm. However, there is a 0.5 x 0.6 x 0.6 cm predominantly anechoic circumscribed mass with a septation and posterior acoustic enhancement but no internal flow at the 10 o'clock position 6 cm from the nipple in the right breast and a similar-appearing mass at the 11 o'clock position 8 cm from the nipple in the right breast measuring 0.5 x 0.4 x 0.5 cm. Corresponding with the partially effaced and symmetry on the lateral and MLO views of the left breast is a 0.8 x 0.6 x 0.7 cm circumscribed hypoechoic mass with posterior acoustic enhancement and no internal flow at the 3 o'clock position 7 cm from the nipple in the left breast. There is an additional similar appearing mass measuring 0.8 x 0.5 x 1 cm at the 4 to 5 o'clock position 7 cm from the nipple in the left breast. Andres Rocha MD IMG MAMMO PROCEDURES Final Result from Last 3 Months or Most Recently Relevant to Health Maintenance Insurance [facility] Care Teams Operations Administrator Relationship Specialty Start Date End Date Sara Dutton PA PCP - General Neurosurgery 09/25/23
--- OUTSIDE RECORDS SUMMARY | 2024-10-14 13:18 | XMS_ITS ---
Author Organization [facility] Address [address] [place] [address] Phone Care Team Providers Care Injection Machine Operator Name Role Phone Unavailable Unavailable Unavailable Problems Includes: Active, inactive, and resolved Problems All Visits Onset Date Resolved Date Provider Condition S tatus Mitral Valve Prolapse 11/07/2016 CARIN GILL RN [facility] Active Last Documented On 7 3:44PM ; [facility] Previous Leep 11/01/2014 EDOUARD SCHMITZ CHRISTA- Active Last Documented On 5 3:37PM ; [facility] Exposure To Herpes Simplex 01/15/2014 Unknown TWAN MONTGOMERY MD Resolved Last Documented On 09/06/2014 10:16AM ; [facility] Note: was Closed. History of Abnormal Pap Smear 01/15/2014 Unknown TWAN MONTGOMERY MD Resolved Last Documented On 09/06/2014 10:16AM ; [facility] Note: was Closed. History of Depression 01/15/2014 Unknown TWAN MONTGOMERY MD Resolved Last Documented On 09/06/2014 10:16AM ; [facility] Note: was Closed. History of Heart Disease 01/15/2014 Unknown TWAN GUTIÉRREZ MD Resolved Last Documented On 09/06/2014 10:16AM ; [facility] Note: was Closed. History of Metabolic Disorders 01/15/2014 Unknown TWAN MONTGOMERY MD Resolved Last Documented On 09/06/2014 10:16AM ; [facility] Note: was Closed. History of Thyroid Disorders 01/15/2014 Unknown TWAN MONTGOMERY MD Resolved Last Documented On 09/06/2014 10:16AM ; [facility] Note: was Closed. Reported Previous Std 01/15/2014 Unknown TWAN MONTGOMERY MD Resolved Last Documented On 09/06/2014 10:16AM ; [facility] Note: was Closed. Respiratory Disorders 01/15/2014 Unknown TWAN MONTGOMERY MD Resolved Last Documented On 09/06/2014 10:16AM ; [facility] Note: was Closed. Asthma 12/16/2013 EDOUARD SCHMITZ CHRISTA-BC Active Last Documented On 4 11:15AM ; [facility] ALLERGIC RHINITIS NOS 07/18/2012 Unknown EDOUARD SCHMITZ NP-BC Resolved Last Documented On 5 3:37PM ; [facility] ANXIETY STATE NOS 07/18/2012 TWAN MONTGOMERY MD A ctive Last Documented On 2 3:33PM ; [facility] Herpes Simplex Type II 07/18/2012 CARIN GILL RN [facility] Active Last Documented On 7 4:09PM ; [facility] HYPERTENSION NOS 07/18/2012 TWAN MONTGOMERY MD Ac tive Last Documented On 2 3:28PM ; [facility] 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 TWAN Saavedra MD Active Last Documented On 2 3:30PM ; [facility] Plan of Treatment Findings Encounter Date Ordered Clinical summary pro vided to patient STAKING PRESS OPERATOR EXAM with CARIN GILL RN [facility] 11/11/2017 Last Documented On 8 3:48PM ; [facility] Ordered Clinical summary pro vided to patient STAKING PRESS OPERATOR EXAM with CARIN GILL RN [facility] 11/07/2016 Last Documented On 7 4:37PM ; [facility] Ordered Clinical summary pro vided to patient STAKING PRESS OPERATOR EXAM with EDOUARD SCHMITZ [facility]- 11/03/2015 Last Documented On 6 3:24PM ; [facility] Ordered Clinical summary pro vided to patient 1 WK CK-UP with CARIN GILL RN [facility] 04/05/2015 Last Documented On 5 4:05PM ; [facility] Ordered Clinical summary pro vided to patient STAKING PRESS OPERATOR EXAM with EDOUARD SCHMITZ [facility]- 11/01/2014 Last Documented On 5 3:50PM ; [facility] Ordered Clinical summary pro vided to patient RETURN OB EXAM with EDOUARD SCHMITZ [facility] 06/03/2014 Last Documented On 4 2:57PM ; [facility] Ordered Clinical summary pro vided to patient RETURN OB EXAM with EDOUARD SCHMITZ NP-BC 05/05/2014 Last Documented On 4 3:26PM ; [facility] Ordered Clinical summary pro vided to patient RETURN OB EXAM with EDOUARD SCHMITZ [facility] 04/05/2014 Last Documented On 4 9:26AM ; [facility] Ordered Clinical summary pro vided to patient RETURN OB EXAM with EDOUARD SCHMITZ [facility] 02/10/2014 Last Documented On 4 2:31PM ; [facility] Instructions to patient Instructions for patient : B reast Self Exam discussed and technique reviewed Last Documented On 8 3:44PM ; [facility] Instructed to call if excess abad bleeding or abdominal/pelvic pain Last Documented On 8 3:44PM ; [facility] Recommend diet and exercise at least 30 min three times per week Last Documented On 8 3:44PM ; [facility] Instructions for patient : B reast Self Exam discussed and technique reviewed Last Documented On 7 3:55PM ; [facility] Instructed to call if excess abad bleeding or abdominal/pelvic pain Last Documented On 7 3:55PM ; [facility] Recommend diet and exercise at least 30 min three times per week Last Documented On 7 3:55PM ; [facility] Instructions for patient : B reast Self Exam discussed Last Documented On 6 3:07PM ; [facility] Instructions for patient : B reast Self Exam discussed Last Documented On 5 3:26PM ; [facility] Instructions for patient : B reast Self Exam discussed and technique reviewed Last Documented On 3 2:43PM ; [facility] Use a condom during sexual i ntercourse Last Documented On 3 2:43PM ; [facility] Instructed to call if excess abad bleeding or abdominal/pelvic pain Last Documented On 3 2:43PM ; [facility] Recommend diet and exercise at least 30 min three times per week Last Documented On 3 2:43PM ; [facility] Recommend CBC, TSH, fasting glucose, fasting lipid panel if patient aged 25 or older Last Documented On 3 2:43PM ; [facility] Recommend preventative vacci nation including but not limited to influenza/flu vaccine, DTP, Rubella, Hepatitis B vaccination series Last Documented On 3 2:43PM ; [facility] Instructions for patient : B reast Self Exam discussed Last Documented On 2 3:21PM ; [facility] Instructions for patient : B reast Self Exam discussed Last Documented On 1 3:46PM ; [facility] Instructions for patient : B reast Self Exam discussed Last Documented On 0 9:03AM ; [facility] Education and Decision Aids were provided during visit for: Patient Education: Daily south cium and vitamin D Last Documented On 8 3:44PM ; [facility] Patient counseling :vaginal hygiene and use of rx Last Documented On 7 4:33PM ; [facility] Patient Education: Daily south cium and vitamin D Last Documented On 7 3:55PM ; [facility] Patient Education: Daily south cium and vitamin D Last Documented On 6 3:07PM ; [facility] Patient Education: weight be aring exercise Last Documented On 6 3:07PM ; [facility] Patient education about self -examination of breasts Last Documented On 5 4:02PM ; [facility] Patient education about self -examination of breasts Last Documented On 5 3:59PM ; [facility] Patient Education: Daily south cium and vitamin D Last Documented On 5 3:26PM ; [facility] Patient Education: weight be aring exercise Last Documented On 5 3:26PM ; [facility] New OB form given to patient SAB precautions reviewed and pnv samples given. Advised H1N1 and seasonal flu vaccine Last Documented On 4 11:06AM ; [facility] Discussed use of seat belts Last Documented On 3 2:43PM ; [facility] Patient education RE: richi serrano signals associated with hormonal contraceptive use including abdominal, chest, or leg pain, headaches or visual disturbances Last Documented On 3 2:43PM ; [facility] Patient Education: Daily south cium and vitamin D Last Documented On 3 2:43PM ; [facility] STD screening offered and de clined Last Documented On 2 3:21PM ; [facility] STD screening offered and de clined Last Documented On 1 3:46PM ; [facility] STD screening offered and de clined Last Documented On 0 9:03AM ; [facility] Assessments Includes: Assessments for all patient encounters Findings Encounter Date Cyst on the right ovary CONSULTATION with TWAN MONTGOMERY MD 12/17/2017 Last Documented On 8 5:14PM ; [facility] Endometriosis CONSULTATION with TWAN MONTGOMERY MD 12/17/2017 Last Documented On 8 5:14PM ; [facility] Female infertility CONSULTATION with TWAN FERNANDEZ ON 12/17/2017 Last Documented On 8 5:14PM ; [facility] Female pelvic pain CONSULTATION with TWAN FERNANDEZ ON 12/17/2017 Last Documented On 8 5:14PM ; [facility] NORMAL FEMALE EXAM STAKING PRESS OPERATOR EXAM with CARIN WOODALL 11/11/2017 Last Documented On 8 3:48PM ; [facility] Screen malignant neoplasm cervix STAKING PRESS OPERATOR EXAM with Autumn GILL RN CH[facility]STA 11/11/2017 Last Documented On 8 3:48PM ; [facility] NORMAL FEMALE EXAM STAKING PRESS OPERATOR EXAM with CARIN WOODALL 11/07/2016 Last Documented On 7 4:37PM ; [facility] Screen malignant neoplasm cervix STAKING PRESS OPERATOR EXAM with Autumn WOODALL 11/07/2016 Last Documented On 7 4:37PM ; [facility] Vaginitis STAKING PRESS OPERATOR EXAM with CARIN Quintero [facility] 11/07/2016 Last Documented On 7 4:37PM ; [facility] NORMAL FEMALE EXAM STAKING PRESS OPERATOR EXAM with EDOUARD Quintero [facility] 11/03/2015 Last Documented On 6 3:24PM ; [facility] Acute mastitis of the right breast RESOLVING 1 WK CK-UP with CARIN GILL RN [facility] 04/05/2015 Last Documented On 5 4:05PM ; [facility] Acute mastitis of the right breast PROBL EM VISIT with CARIN GILL RN [facility] 03/29/2015 Last Documented On 5 4:01PM ; [facility] NORMAL FEMALE EXAM STAKING PRESS OPERATOR EXAM with EDOUARD Quintero [facility] 11/01/2014 Last Documented On 5 3:50PM ; [facility] Urinary retention POST VISIT with TWAN MONTGOMERY MD 07/20/2014 Last Documented On 4 8:49AM ; [facility] Normal checkup (6 - 42 wk) RETURN OB EX AM with TWAN MONTGOMERY MD 07/13/2014 Last Documented On 4 4:37PM ; [facility] Normal checkup (6 - 42 wk) RETURN OB EX AM with TWAN MONTGOMERY MD 07/06/2014 Last Documented On 4 4:59PM ; [facility] Normal checkup (6 - 42 wk) RETURN OB EX AM with TWAN MONTGOMERY MD 06/29/2014 Last Documented On 4 4:18PM ; [facility] Normal checkup (6 - 42 wk) RETURN OB EX AM with TWAN MONTGOMERY MD 06/23/2014 Last Documented On 4 4:52PM ; [facility] Normal checkup (6 - 42 wk) * PHONE CALL with TWAN MONTGOMERY MD 06/16/2014 Last Documented On 4 9:34AM ; [facility] Normal checkup (6 - 42 wk) RETURN OB EX AM with TWAN MONTGOMERY MD 06/15/2014 Last Documented On 4 2:02PM ; [facility] Normal checkup (6 - 42 wk) RETU RN OB EXAM with EDOUARD [facility] 06/03/2014 Last Documented On 4 2:57PM ; [facility] Normal checkup (6 - 42 wk) RETURN OB EX AM with TWAN MONTGOMERY MD 05/18/2014 Last Documented On 4 9:52AM ; [facility] Normal checkup (6 - 42 wk) RETU RN OB EXAM with EDOUARD WOODALLSHERI 05/05/2014 Last Documented On 4 3:26PM ; [facility] Normal checkup (6 - 42 wk) RETURN OB EX AM with TWAN MONTGOMERY MD 04/20/2014 Last Documented On 4 4:46PM ; [facility] Normal checkup (6 - 42 wk) RETU RN OB EXAM with EDOUARD WOODALLSHERI 04/05/2014 Last Documented On 4 9:26AM ; [facility] Normal checkup (6 - 42 wk) RETURN OB EX AM with TWAN MONTGOMERY MD 03/08/2014 Last Documented On 4 2:57PM ; [facility] Normal checkup (6 - 42 wk) * PH ONE CALL with EDOUARD DOAN 02/17/2014 Last Documented On 4 10:01AM ; [facility] Normal checkup (6 - 42 wk) * PHONE CALL with TWAN MONTGOMERY MD 02/15/2014 Last Documented On 4 4:26PM ; [facility] Normal checkup (6 - 42 wk) RETU RN OB EXAM with EDOUARD WOODALLSHERI 02/10/2014 Last Documented On 4 2:31PM ; [facility] Normal checkup (6 - 42 wk) * PHONE CALL with TWAN MONTGOMERY MD 02/01/2014 Last Documented On 4 2:40PM ; [facility] Normal checkup (6 - 42 wk) NEW OB EXAM with TWAN MONTGOMERY MD 01/15/2014 Last Documented On 4 2:07PM ; [facility] Respiratory disorder Has inh aler, has never been intubated but has rec'd steroids NEW OB EXAM with TWAN MONTGOMERY MD 01/15/2014 Last Documented On 4 2:07PM ; [facility] Amenorrhea 10 4/7 weeks by Neal COLLINS with EDC 07-11-14 MISSED MENSES with EDOUARD SCHMITZ [facility] 12/16/2013 Last Documented On 4 11:36AM ; [facility] Endometriosis CONSULTATION with TWAN MONTGOMERY MD 09/07/2013 Last Documented On 4 2:48PM ; [facility] Preconception Counseling CONSULTATION with TWAN MONTGOMERY MD 09/07/2013 Last Documented On 4 2:48PM ; [facility] Routine gynecological exam STAKING PRESS OPERATOR EXAM with CARIN GILL RN [facility] 08/06/2013 Last Documented On 3 3:17PM ; [facility] Routine pelvic exam STAKING PRESS OPERATOR EXAM with TWAN MONTGOMERY MD 07/18/2012 Last Documented On 2 3:43PM ; [facility] Routine pelvic exam STAKING PRESS OPERATOR EXAM with TWAN MONTGOMERY MD 07/16/2011 Last Documented On 1 3:47PM ; [facility] Routine pelvic exam STAKING PRESS OPERATOR EXAM with TWAN MONTGOMERY MD 07/04/2010 Last Documented On 0 9:06AM ; [facility] Assessment of abnormal Pap s mear: atypical squamous cells of undetermined significance RE-PAP with TWAN MONTGOMERY MD 12/29/2009 Last Documented On 0 9:26AM ; [facility] Assessment of for high risk HPV types RE-PAP wit h TWAN MONTGOMERY MD 12/29/2009 Last Documented On 0 9:26AM ; [facility] Instructions Includes: Instructions for all patient encounters Instructions to patient Instructions for patient : B reast Self Exam discussed and technique reviewed Last Documented On 8 3:44PM ; [facility] Instructed to call if excess abad bleeding or abdominal/pelvic pain Last Documented On 8 3:44PM ; [facility] Recommend diet and exercise at least 30 min three times per week Last Documented On 8 3:44PM ; [facility] Instructions for patient : B reast Self Exam discussed and technique reviewed Last Documented On 7 3:55PM ; [facility] Instructed to call if excess abad bleeding or abdominal/pelvic pain Last Documented On 7 3:55PM ; [facility] Recommend diet and exercise at least 30 min three times per week Last Documented On 7 3:55PM ; [facility] Instructions for patient : B reast Self Exam discussed Last Documented On 6 3:07PM ; [facility] Instructions for patient : B reast Self Exam discussed Last Documented On 5 3:26PM ; [facility] Instructions for patient : B reast Self Exam discussed and technique reviewed Last Documented On 3 2:43PM ; [facility] Use a condom during sexual i ntercourse Last Documented On 3 2:43PM ; [facility] Instructed to call if excess abad bleeding or abdominal/pelvic pain Last Documented On 3 2:43PM ; [facility] Recommend diet and exercise at least 30 min three times per week Last Documented On 3 2:43PM ; [facility] Recommend CBC, TSH, fasting glucose, fasting lipid panel if patient aged 25 or older Last Documented On 3 2:43PM ; [facility] Recommend preventative vacci nation including but not limited to influenza/flu vaccine, DTP, Rubella, Hepatitis B vaccination series Last Documented On 3 2:43PM ; [facility] Instructions for patient : B reast Self Exam discussed Last Documented On 2 3:21PM ; [facility] Instructions for patient : B reast Self Exam discussed Last Documented On 1 3:46PM ; [facility] Instructions for patient : B reast Self Exam discussed Last Documented On 0 9:03AM ; [facility] Education and Decision Aids were provided during visit for: Patient Education: Daily south cium and vitamin D Last Documented On 8 3:44PM ; [facility] Patient counseling :vaginal hygiene and use of rx Last Documented On 7 4:33PM ; [facility] Patient Education: Daily south cium and vitamin D Last Documented On 7 3:55PM ; [facility] Patient Education: Daily south cium and vitamin D Last Documented On 6 3:07PM ; [facility] Patient Education: weight be aring exercise Last Documented On 6 3:07PM ; [facility] Patient education about self -examination of breasts Last Documented On 5 4:02PM ; [facility] Patient education about self -examination of breasts Last Documented On 5 3:59PM ; [facility] Patient Education: Daily south cium and vitamin D Last Documented On 5 3:26PM ; [facility] Patient Education: weight be aring exercise Last Documented On 5 3:26PM ; [facility] New OB form given to patient SAB precautions reviewed and pnv samples given. Advised H1N1 and seasonal flu vaccine Last Documented On 4 11:06AM ; [facility] Discussed use of seat belts Last Documented On 3 2:43PM ; [facility] Patient education RE: richi serrano signals associated with hormonal contraceptive use including abdominal, chest, or leg pain, headaches or visual disturbances Last Documented On 3 2:43PM ; [facility] Patient Education: Daily south cium and vitamin D Last Documented On 3 2:43PM ; [facility] STD screening offered and de clined Last Documented On 2 3:21PM ; [facility] STD screening offered and de clined Last Documented On 1 3:46PM ; [facility] STD screening offered and de clined Last Documented On 0 9:03AM ; [facility] Medical Equipment - Implanted Devices Includes: Current and historical Devices No Medical Equipment Recorded Medications Includes: Current and historical Medications Current Medications (continue as prescribed) Nystatin [id number]/GM External Cream 11/07/2016 Pro vider: Diagnosis: Last Documented On 11/07/2016 3:53PM By NICOLE LI MA ; [facility] Advair Diskus 250-50 MCG/DOSE IN AEPB 07/18/2012 Pro vider: Diagnosis: once daily. Last Documented On 2 3:08PM By MESSI DEL ANGEL LPN ; [facility] Past Medications on file ValACYclovir HCl 500MG Oral Tablet 12/03/2017 - 11/28/2018 Provider: CARIN WOODALL Diagnosis: Herpesviral infe ction, unspecified 1 daily Last Documented On 8 11:47AM By CARIN DOAN ; [facility] Terconazole 0.4% Vaginal Cream 11/11/2017 - 12/02/2017 Provider: CARIN WOODALL Diagnosis: Acute vulvitis as directed apply bid to perineum Last Documented On 8 4:21PM By CARIN DOAN ; [facility] Classic 28-0.8MG Oral Tablet 11/11/2017 - 11/06/2018 Provider: CARIN WOODALL Diagnosis: Encounter for ot h general cnsl and advice on procreation 1 daily Last Documented On 8 4:21PM By CARIN DOAN ; [facility] ValACYclovir HCl 500MG Oral Tablet 11/11/2017 - 2017 Provider: Diagnosis: Last Documented On 12/17/2017 2:18PM By Daniella Barrios MA ; [facility] Plus 27-1MG Oral Tablet 11/07/2016 - 11/02/2017 Provider: CARIN WOODALL Diagnosis: Encounter for ot h general cnsl and advice on procreation TAKE DIRECTED W/FOOD Last Documented On 7 4:22PM By CARIN DOAN ; [facility] Azithromycin 500MG Oral Tablet 11/07/2016 - 11/08/2016 Provider: CARIN WOODALL Diagnosis: Acute vaginitis as directed 2 TABLETS NOW Last Documented On 7 4:39PM By CARIN DOAN ; [facility] Terconazole 0.4% Vaginal Cream 11/07/2016 - 11/21/2016 Provider: CARIN WOODALL Diagnosis: Acute vaginitis 1 ADELINE IN VAGINA EVERY NIGHT X 7 USE 2 TIMES DAILY TO PERINEUM Last Documented On 7 4:39PM By CARIN DOAN ; [facility] ValACYclovir HCl 500MG Oral Tablet 11/07/2016 - 12/03/2017 Provider: CARIN GILL RN [facility] Diagnosis: Herpesviral infe ction, unspecified 1 daily Last Documented On 8 11:41AM By CARIN [facility]ILL [facility] ; [facility] Valtrex 500 MG Tablet 11/17/2015 - 11/11/2016 Provider: [facility]ARD [facility] Diagnosis: Herpesviral infe ction, unspecified One tablet daily Last Documented On 6 10:44AM By EDOUARD SCHMITZ [facility] ; [facility] Ibuprofen 600 MG Tablet 03/29/2015 - 04/03/2015 Provider: CARIN GILL RN [facility] Diagnosis: Inflam Disease O f Breast 1 every 6 hours as needed US E DIRECTED W/FOOD Last Documented On 5 4:01PM By CARIN [facility]ILL [facility] ; [facility] Bactrim DS 800-160 MG Tablet 03/29/2015 - 04/08/2015 Provider: CARIN GILL RN [facility] Diagnosis: Inflam Disease O f Breast One tablet twice a day ONE T AB 2 TIMES A DAY WITH FOOD Last Documented On 5 3:51PM By CARIN GILL [facility] ; [facility] Valtrex 500 MG OR TABS 11/01/2014 - 11/17/2015 Provider: EDOUARD SCHMITZ [facility] Diagnosis: HERPES SIMPLEX N OS Last Documented On 6 10:42AM By EDOUARD SCHMITZ [facility] ; [facility] Valtrex 500 MG OR TABS 10/05/2014 - 11/01/2014 Provide r: TWAN MONTGOMERY MD Diagnosis: HERPES SIMPLEX N OS Last Documented On 5 3:49PM By EDOUARD SCHMITZ [facility] ; [facility] Cephalexin 250 MG OR CAPS 07/27/2014 - 07/30/2014 Prov ider: TWAN MONTGOMERY MD Diagnosis: Last Documented On 07/27/2014 9:11AM By TWAN MONTGOMERY MD ; [facility] Colace 50 MG OR CAPS 07/20/2014 - 11/07/2016 Provider: Diagnosis: Last Documented On 11/07/2016 3:52PM By NICOLE LI MA ; [facility] Cephalexin 250 MG OR CAPS 07/20/2014 - 07/27/2014 Prov ider: Diagnosis: Last Documented On 07/27/2014 9:10AM By TWAN MONTGOMERY MD ; [facility] Levothyroxine Sodium 50 MCG OR TABS 07/13/2014 - 09/11/2014 Provider: TWAN MONTGOMERY MD Diagnosis: Last Documented On 07/13/2014 4:36PM By TWAN MONTGOMERY MD ; [facility] Macrobid 100 MG OR CAPS 06/03/2014 - 06/10/2014 Provid er: EDOUARD SCHMITZ [facility]RISTA- Diagnosis: DYSURIA Last Documented On 4 2:55PM By EDOUARD SCHMITZ CHRISTA- ; [facility] Levothyroxine Sodium 50 MCG OR TABS 04/12/2014 - 07/13/2014 Provider: TWAN MONTGOMERY MD Diagnosis: Last Documented On 07/13/2014 4:36PM By TWAN MONTGOMERY MD ; [facility] Macrobid 100 MG OR CAPS 02/15/2014 - 02/22/2014 Provid er: TWAN MONTGOMERY MD Diagnosis: Last Documented On 02/15/2014 4:26PM By TWAN MONTGOMERY MD ; [facility] Levothyroxine Sodium 50 MCG OR TABS 01/15/2014 - 04/12/2014 Provider: TWAN MONTGOMERY MD Diagnosis: Last Documented On 04/12/2014 12:03PM By TWAN MONTGOMERY MD ; [facility] Valtrex 500 MG OR TABS 09/21/2013 - 10/05/2014 Provide r: CARIN GILL RN [facility] Diagnosis: HERPES SIMPLEX N OS Last Documented On 10/05/2014 11:24AM By TWAN MONTGOMERY MD ; [facility] Valtrex 500 MG OR TABS 09/07/2013 - 11/18/2013 Provide r: Diagnosis: Last Documented On 11/18/2013 2:49PM By HARIKA JACINTO LPN ; [facility] /Folic Acid OR TABS 08/06/2013 - 12/17/2017 Provider: CARIN GILL RN [facility] Diagnosis: OTHER FAMILY KIARRA NNING ADVICE NEC Last Documented On 12/17/2017 2:18PM By Dnaiella Barrios MA ; [facility] Vitamin C 500 MG OR TABS 08/06/2013 - 12/16/2013 P rovider: Diagnosis: Last Documented On 4 11:12AM By PREMA KELSEY ; [facility] Vitamin D 2000 UNIT OR CAPS 08/06/2013 - 4 Provider: Diagnosis: Last Documented On 4 11:13AM By PREMA KELSEY ; [facility] Probiotic OR CAPS 08/06/2013 - 12/16/2013 Provider: Diagnosis: Last Documented On 4 11:13AM By PREMA KELSEY ; [facility] Levora 0.15/30 (28) 0.15-30 MG-MCG OR TABS 04/27/2013 - 08/10/2013 Provider: TWAN MONTGOMERY MD Diagnosis: TAKE 1 TABLET BY MOUTH DAILY CONTINUOUSLY. SKIP PLACEBO TABLETS. Last Documented On 04/27/2013 9:28AM By TWAN MONTGOMERY MD ; [facility] Valtrex 500 MG OR TABS 09/01/2012 - 08/27/2013 Provide r: TWAN MONTGOMERY MD Diagnosis: TAKE ONE TABLET BY MOUTH DAILY Last Documented On 09/01/2012 10:40AM By TWAN MONTGOMERY MD ; [facility] Levora 0.15/30 (28) 0.15-30 MG-MCG OR TABS 07/18/2012 - 04/27/2013 Provider: TWAN MONTGOMERY MD Diagnosis: She takes continuous active pills so actually needs this refilled every 21 days, not every 28 thanks Last Documented On 04/27/2013 9:27AM By TWAN MONTGOMERY MD ; [facility] Xanax 0.25 MG OR TABS 07/18/2012 - 12/16/2013 Provider : Diagnosis: takes prn. Last Documented On 4 11:13AM By PREMA KELSEY ; [facility] Singulair 10 MG OR TABS 07/18/2012 - 01/15/2014 Provid er: Diagnosis: takes prn Last Documented On 01/15/2014 1:04PM By FERMIN GATES ; [facility] Shante 28 3-0.03 MG OR TABS 07/18/2012 - 08/06/2013 Pr ovider: Diagnosis: takes cont for [facility] weeks[facility] Last Documented On 08/06/2013 2:26PM By NITA KELSEY ; [facility] Bystolic 5 MG OR TABS 07/18/2012 - 12/16/2013 Provider : Diagnosis: Last Documented On 4 11:13AM By PREMA KELSEY ; [facility] Valtrex 500 MG OR TABS 06/09/2012 - 09/01/2012 Provide r: TWAN MONTGOMERY MD Diagnosis: TAKE 1 TABLET BY MOUTH DAILY Last Documented On 09/01/2012 10:40AM By TWAN MONTGOMERY MD ; [facility] Machelle 3-0.03 MG OR TABS 05/18/2012 - 06/15/2012 Provid er: TWAN MONTGOMERY MD Diagnosis: TAKE 1 TABLET BY MOUTH DAILY Last Documented On 05/18/2012 7:36PM By TWAN MONTGOMERY MD ; [facility] Valtrex 500 MG OR TABS 07/23/2011 - 06/09/2012 Provide r: TWAN MONTGOMERY MD Diagnosis: Last Documented On 06/09/2012 9:10AM By TWAN MONTGOMERY MD ; [facility] Albuterol Sulfate (2.5 MG/3ML) 0.083% IN [facility] 07/16/20 - 07/18/2012 Provider: Diagnosis: Last Documented On 2 3:07PM By MESSI DEL ANGEL LPN ; [facility] Flonase 50 MCG/ACT NA SUSP 07/16/2011 - 07/18/2012 Pro vider: Diagnosis: Last Documented On 2 3:07PM By MESSI DEL ANGEL LPN ; [facility] Valtrex 500 MG OR TABS 07/16/2011 - 07/18/2012 Provide r: Diagnosis: Last Documented On 2 3:07PM By MESSI DEL ANGEL LPN ; [facility] Machelle 3-0.03 MG OR TABS 07/16/2011 - 05/18/2012 Provid er: TWAN MONTGOMERY MD Diagnosis: Last Documented On 05/18/2012 7:35PM By TWAN MONTGOMERY MD ; [facility] Machelle 3-0.03 MG OR TABS 07/10/2011 - 07/16/2011 Provid er: TWAN MONTGOMERY MD Diagnosis: Last Documented On 07/16/2011 3:46PM By TWAN MONTGOMERY MD ; [facility] Ocella 3-0.03 MG OR TABS 07/25/2010 - 06/26/2011 Provi marine: TWAN MONTGOMERY MD Diagnosis: Last Documented On 07/25/2010 10:13AM By TWAN MONTGOMERY MD ; [facility] valACYclovir HCl 500 MG OR TABS 07/18/2010 - 7 Provider: TWAN MONTGOMERY MD Diagnosis: Last Documented On 7 4:26PM By CARIN [facility] ; [facility] Shante 28 3-0.03 MG OR TABS 07/04/2010 - 06/05/2011 Pr ovider: TWAN MONTGOMERY MD Diagnosis: Last Documented On 07/04/2010 9:04AM By TWAN MONTGOMERY MD ; [facility] Shante 28 3-0.03 MG OR TABS 05/15/2010 - 07/04/2010 Pr ovider: TWAN MONTGOMERY MD Diagnosis: Last Documented On 07/04/2010 9:04AM By TWAN MONTGOMERY MD ; [facility] Valtrex 500 MG OR TABS 12/29/2009 - 06/27/2010 Provide r: TWAN MONTGOMERY MD Diagnosis: Last Documented On 12/29/2009 9:25AM By TWAN MONTGOMERY MD ; [facility] Shante 28 3-0.03 MG OR TABS 12/29/2009 - 05/15/2010 Pr ovider: TWAN MONTGOMERY MD Diagnosis: Last Documented On 05/15/2010 12:56PM By TWAN MONTGOMERY MD ; [facility] Shante 28 3-0.03 MG OR TABS 10/06/2009 - 12/29/2009 Pr ovider: TWAN MONTGOMERY MD Diagnosis: DOESN'T WANT TO TAKE NEW BCP ; WANTS TO TAKE SHANTE INSTEAD; LMP 10/01/09; [id number] CH Last Documented On 12/29/2009 9:24AM By TWAN MONTGOMERY MD ; [facility] Valtrex 500 MG OR TABS 01/18/2009 - 12/29/2009 Provide r: Diagnosis: Last Documented On 12/29/2009 9:24AM By TWAN MONTGOMERY MD ; [facility] Medications Administered Includes: Administered Medications in patient's chart No Administered Medications Recorded Results Includes: Results from 10/14/2023 through 10/14/2024 No Results Recorded For Specified Dates History of Present Illness History of Present Illness not supported for this document type No History of Present Illness Recorded Social History Description Last Updated Alcohol use: 2 drinks or less per day no ne 12/17/2017 Last Documented On 8 5:14PM ; [facility] Non-smoker 12/17/2017 Last Documented On 8 5:14PM ; [facility] Currently 11/11/2017 Last Documented On 8 3:48PM ; [facility] Activities 11/11/2017 Last Documented On 8 3:48PM ; [facility] No consumption of alcohol 11/11/2017 Last Documented On 8 3:48PM ; [facility] No recent change in sleep 11/11/2017 Last Documented On 8 3:48PM ; [facility] Nutritious and satisfying diet 8 Last Documented On 8 3:48PM ; [facility] Personal history 11/11/2017 Last Documented On 8 3:48PM ; [facility] Sexually active 11/11/2017 Last Documented On 8 3:48PM ; [facility] In monogamous relationship 11/11/2017 Last Documented On 8 3:48PM ; [facility] Smoking status : Never smoker 11/11/2017 Last Documented On 8 3:48PM ; [facility] Education history 11/07/2016 Last Documented On 7 4:37PM ; [facility] Educational level 11/07/2016 Last Documented On 7 4:37PM ; [facility] Not a smoker 11/07/2016 Last Documented On 7 4:37PM ; [facility] Procedures and Surgical History Surgical History Last Updated Surgical / procedural history Neal horn ~D & C September 2016 11/07/2016 Last Documented On 7 4:37PM ; [facility] History of Loop electrode excision of ce rvix (LEEP) 2007 TANISHA II +margins 06/03/2014 Last Documented On 4 2:57PM ; [facility] History of surgery LEEP TANISHA II 4 Last Documented On 4 2:57PM ; [facility] Medical History Includes: Medical History in patient's chart Description Last Updated Aborta 1 12/17/2017 Last Documented On 8 5:14PM ; [facility] Para 1 12/17/2017 Last Documented On 8 5:14PM ; [facility] PRIMARY CARE PROVIDER : Sara Iglesias nd 11/11/2017 Last Documented On 8 3:48PM ; [facility] 2 11/11/2017 Last Documented On 8 3:48PM ; [facility] LMP: 11/03/2017 11/11/2017 Last Documented On 8 3:48PM ; [facility] Not using contraception pt wishes to con ceive 11/11/2017 Last Documented On 8 3:48PM ; [facility] Last pap smear date 11/07/2016 11/11/2017 Last Documented On 8 3:48PM ; [facility] History of human papilloma virus infecti on 11/01/2014 Last Documented On 5 3:50PM ; [facility] History of coronary artery disease mvp 0 11/01/2014 Last Documented On 5 3:50PM ; [facility] History of cervical dysplasia TANISHA II on LEEP in 200706/03/2014 Last Documented On 4 2:57PM ; [facility] Family History Includes: Family History in patient's chart Description Last Updated Fraternal history of hypercholesterolemi a dad 11/03/2015 Last Documented On 6 3:24PM ; [facility] Maternal grandmother's history of malign ant female breast neoplasm MGM 11/03/2015 Last Documented On 6 3:24PM ; [facility] Maternal history of hypertension mom 11/2015 Last Documented On 6 3:24PM ; [facility] Paternal grandmother's history of diabet es mellitus PGM and PGF 11/03/2015 Last Documented On 6 3:24PM ; [facility] Spouse name: Kun 12/16/2013 Last Documented On 4 11:36AM ; [facility] Family history of hypercholesterolemia d ad 12/16/2013 Last Documented On 4 11:36AM ; [facility] Family history of hypertension mom 12/16 Last Documented On 4 11:36AM ; [facility] Family history of diabetes mellitus PGM and PGF 09/07/2013 Last Documented On 4 2:48PM ; [facility] Family history of malignant female breas t neoplasm MGM 09/07/2013 Last Documented On 4 2:48PM ; [facility] Family history of Cancer 10/06/2009 Last Documented On 0 3:15PM ; [facility] Family history of Diabetes 10/06/2009 Last Documented On 0 3:15PM ; [facility] Family medical history of high blood pre ssure 10/06/2009 Last Documented On 0 3:15PM ; [facility] Review of Systems Review of Systems not supported for this document type No Review of Systems Recorded Mental Status No Mental Status Recorded Functional Status No Functional Status Recorded Physical Exam Physical Exam not supported for this document type No Physical Exam Recorded Allergies Includes: Active, inactive, and resolved Allergies Substance Type Reaction Onset Date Resolved Date Statu s Penicillin V Potassium Allergy Skin Rash es / Eruption of skin, Hives / Urticaria 08/06/2013 Active Last Documented On 8 2:18PM ; [facility] Macrobid Allergy 11/07/2016 Active Last Documented On 8 2:18PM ; [facility] Amoxicillin Allergy Skin Rashes / Er uption of skin, Hives / Urticaria 11/07/2016 Active Last Documented On 8 2:18PM ; [facility] Clinical Notes Includes: Signed Clinical Notes starting from 09/21/2022 No Clinical Notes Recorded
--- OUTSIDE RECORDS SUMMARY | 2024-10-14 13:18 | XMS_ITS | Clinical Summary ---
Author Organization [facility] Address [address] [place] [address] Phone Care Team Providers Care Costing Manager Name Role Phone Unavailable Unavailable Unavailable Reason for Visit and Chief Complaint * PHONE CALL Problems Includes: Problems addressed during this encounter and other active Problems All Visits Onset Date Resolved Date Provider Condition S tatus Mitral Valve Prolapse 11/07/2016 CARIN GILL RN NP BC Active Last Documented On 7 3:44PM ; [facility] Previous Leep 11/01/2014 EDOUARD SCHMITZ NP-BC Active Last Documented On 5 3:37PM ; [facility] Asthma 12/16/2013 EDOUARD SCHMITZ NP-BC Act abad Last Documented On 4 11:15AM ; [facility] ANXIETY STATE NOS 07/18/2012 TWAN MONTGOMERY MD A ctive Last Documented On 2 3:33PM ; [facility] Herpes Simplex Type II 07/18/2012 CARIN GILL RN NP BC Active Last Documented On 7 4:09PM ; [facility] HYPERTENSION NOS 07/18/2012 TWAN MONTGOMERY MD Ac tive Last Documented On 2 3:28PM ; [facility] 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 TWAN Saavedra MD Active Last Documented On 2 3:30PM ; [facility] Plan of Treatment No Plan of Treatment Recorded Assessments Includes: Assessments from this encounter No Assessments Recorded Medical Equipment - Implanted Devices Includes: Current Devices No Medical Equipment Recorded Medications Includes: Medications discussed during this encounter and other current Medications Current Medications (continue as prescribed) Nystatin [id number] External Cream 11/07/2016 Pro vider: Diagnosis: Last Documented On 11/07/2016 3:53PM By NICOLE LI MA ; [facility] Advair Diskus 250-50 MCG/DOSE IN AEPB 07/18/2012 Pro vider: Diagnosis: once daily. Last Documented On 2 3:08PM By MESSI DEL ANGEL LPN ; [facility] Past Medications on file ValACYclovir HCl 500MG Oral Tablet 12/03/2017 - 11/28/2018 Provider: CARIN WOODALL Diagnosis: Herpesviral infe ction, unspecified 1 daily Last Documented On 8 11:47AM By CARIN DOAN ; [facility] Terconazole 0.4% Vaginal Cream 11/11/2017 - 12/02/2017 Provider: CARIN WOODALL Diagnosis: Acute vulvitis as directed apply bid to perineum Last Documented On 8 4:21PM By CARIN DOAN ; [facility] Classic 28-0.8MG Oral Tablet 11/11/2017 - 11/06/2018 Provider: CARIN WADE Diagnosis: Encounter for ot h general cnsl and advice on procreation 1 daily Last Documented On 8 4:21PM By CARIN DOAN ; [facility] Plus 27-1MG Oral Tablet 11/07/2016 - 11/02/2017 Provider: CARIN WOODALL Diagnosis: Encounter for ot h general cnsl and advice on procreation TAKE DIRECTED W/FOOD Last Documented On 7 4:22PM By CARIN DOAN ; [facility] Azithromycin 500MG Oral Tablet 11/07/2016 - 11/08/2016 Provider: CARIN WADE Diagnosis: Acute vaginitis as directed 2 TABLETS NOW Last Documented On 7 4:39PM By CARIN DOAN ; [facility] Terconazole 0.4% Vaginal Cream 11/07/2016 - 11/21/2016 Provider: CARIN WOODALL BC Diagnosis: Acute vaginitis 1 ADELINE IN VAGINA EVERY NIGHT X 7 USE 2 TIMES DAILY TO PERINEUM Last Documented On 7 4:39PM By CARIN MENDIOLA ; [facility] Valtrex 500 MG Tablet 11/17/2015 - 11/11/2016 Provider: EDOUARD MENDIOLA Diagnosis: Herpesviral infe ction, unspecified One tablet daily Last Documented On 6 10:44AM By EDOUARD SCHMITZ MARI ; [facility] Ibuprofen 600 MG Tablet 03/29/2015 - 04/03/2015 Provider: CARIN GILL RN CHRISTA BC Diagnosis: Inflam Disease O f Breast 1 every 6 hours as needed US E DIRECTED W/FOOD Last Documented On 5 4:01PM By CARIN MENDIOLA ; [facility] Bactrim DS 800-160 MG Tablet 03/29/2015 - 04/08/2015 Provider: CARIN GILL RN CHRISTA BC Diagnosis: Inflam Disease O f Breast One tablet twice a day ONE T AB 2 TIMES A DAY WITH FOOD Last Documented On 5 3:51PM By CARIN MENDIOLA ; [facility] Cephalexin 250 MG OR CAPS 07/27/2014 - 07/30/2014 Prov ider: TWAN MONTGOMERY MD Diagnosis: Last Documented On 07/27/2014 9:11AM By TWAN MONTGOMERY MD ; [facility] Levothyroxine Sodium 50 MCG OR TABS 07/13/2014 - 09/11/2014 Provider: TWAN MONTGOMERY MD Diagnosis: Last Documented On 07/13/2014 4:36PM By TWAN MONTGOMERY MD ; [facility] Macrobid 100 MG OR CAPS 06/03/2014 - 06/10/2014 Provid er: EDOUARD MENDIOLA Diagnosis: DYSURIA Last Documented On 4 2:55PM By EDOUARD SCHMITZ MARI ; [facility] Macrobid 100 MG OR CAPS 02/15/2014 - 02/22/2014 Provid er: TWAN MONTGOMERY MD Diagnosis: Last Documented On 02/15/2014 4:26PM By TWAN MONTGOMERY MD ; [facility] Levora 0.15/30 (28) 0.15-30 MG-MCG OR TABS 04/27/2013 - 08/10/2013 Provider: TWAN MONTGOMERY MD Diagnosis: TAKE 1 TABLET BY MOUTH DAILY CONTINUOUSLY. SKIP PLACEBO TABLETS. Last Documented On 04/27/2013 9:28AM By TWAN MONTGOMERY MD ; [facility] Valtrex 500 MG OR TABS 09/01/2012 - 08/27/2013 Provide r: TWAN MONTGOMERY MD Diagnosis: TAKE ONE TABLET BY MOUTH DAILY Last Documented On 09/01/2012 10:40AM By TWAN MONTGOMERY MD ; [facility] Machelle 3-0.03 MG OR TABS 05/18/2012 - 06/15/2012 Provid er: TWAN MONTGOMERY MD Diagnosis: TAKE 1 TABLET BY MOUTH DAILY Last Documented On 05/18/2012 7:36PM By TWAN MONTGOMERY MD ; [facility] Ocella 3-0.03 MG OR TABS 07/25/2010 - 06/26/2011 Provi marine: TWAN MONTGOMERY MD Diagnosis: Last Documented On 07/25/2010 10:13AM By TWAN MONTGOMERY MD ; [facility] Shante 28 3-0.03 MG OR TABS 07/04/2010 - 06/05/2011 Pr ovider: TWAN MONTGOMERY MD Diagnosis: Last Documented On 07/04/2010 9:04AM By TWAN MONTGOMERY MD ; [facility] Valtrex 500 MG OR TABS 12/29/2009 - 06/27/2010 Provide r: TWAN MONTGOMERY MD Diagnosis: Last Documented On 12/29/2009 9:25AM By TWAN MONTGOMERY MD ; [facility] Medications Administered Includes: Administered Medications from [...] a dad 11/03/2015 Last Documented On 8 12:13PM ; [facility] Maternal grandmother's history of malign ant female breast neoplasm MGM 11/03/2015 Last Documented On 8 12:13PM ; [facility] Maternal history of hypertension mom 11/2015 Last Documented On 8 12:13PM ; [facility] Paternal grandmother's history of diabet es mellitus PGM and PGF 11/03/2015 Last Documented On 8 12:13PM ; [facility] Spouse name: Kun 12/16/2013 Last Documented On 8 12:13PM ; [facility] Family history of hypercholesterolemia d ad 12/16/2013 Last Documented On 8 12:13PM ; [facility] Family history of hypertension mom 12/16 Last Documented On 8 12:13PM ; [facility] Family history of diabetes mellitus PGM and PGF 09/07/2013 Last Documented On 8 12:13PM ; [facility] Family history of malignant female breas t neoplasm MGM 09/07/2013 Last Documented On 8 12:13PM ; [facility] Family history of Cancer 10/06/2009 Last Documented On 8 12:13PM ; [facility] Family history of Diabetes 10/06/2009 Last Documented On 8 12:13PM ; [facility] Family medical history of high blood pre ssure 10/06/2009 Last Documented On 8 12:13PM ; [facility] Review of Systems Includes: Review of Systems [...] Active Last Documented On 8 2:18PM ; [facility] Macrobid Allergy 11/07/2016 Active Last Documented On 8 2:18PM ; [facility] Amoxicillin Allergy Skin Rashes / Er uption of skin, Hives / Urticaria 11/07/2016 Active Last Documented On 8 2:18PM ; [facility] Encounters Encounter Provider Location Date Check-In Time Check-Out Time Diagnosis * PHONE CALL TWAN MONTGOMERY MD 01/23/2018 12:13PM 11:59PM Clinical Notes Includes: Clinical Notes from this encounter No Clinical Notes Recorded
--- OUTSIDE RECORDS SUMMARY | 2024-10-14 13:18 | XMS_ITS | Referral Summary ---
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 Name Role Phone Sara Dutton Primary Care Prov ider Encounters Date Type Department Care Team Description 09/30/2024 Telephone [facility] [address] [place] [address] Anatoly Gill MD Right Breast, Cyst 09/29/2024 1:15 PM BULKHEAD CARPENTER Office Visit [email or web address] [address] [place] [address] Anatoly Gill MD Well woman exam (Primary Dx); Encounter for screening mammogram for malignant neoplasm of breast; Breast cyst, right; History of pneumothorax from Last 3 Months Allergies Active Allergy Reactions Criticality Noted Date [...] diaphragm with pneumothorax status post surgery at [facility] March 14. History of pneumothorax 04/26/2024 Overview (04/26/2024): Secondary to endometriosis of the right diaphragm treated by thoracic surgery at [facility] on March 14, 2024. Malignant melanoma of left u pper extremity including shoulder 09/25/2023 Asthma 02/08/2015 Overview (12/06/2016): Asthma Immunizations Name Administration Dates Next Due Pneumococcal Polysaccharide PPV23 08/09/2015 Social History Tobacco Use Types Packs/Day Years [...] on file Legal Sex Female 2:17 PM BULKHEAD CARPENTER Gender Identity Not on file Sexual Orientation Not on file Last Filed Vital Signs Vital Sign Reading Time Taken Comments Blood Pressure 108/74 09/29/2024 1:25 PM BULKHEAD CARPENTER Pulse 97 09/06/2017 5:41 PM BULKHEAD CARPENTER Temperature 36.4 C (97.5 F) 09/06/2017 5:41 PM BULKHEAD CARPENTER Respiratory Rate 16 09/06/2017 5:41 PM BULKHEAD CARPENTER Oxygen Saturation 99% 09/06/2017 5:41 PM BULKHEAD CARPENTER Inhaled Oxygen Concentration - - Weight 51.7 kg (114 lb) 09/29/2024 1:25 PM BULKHEAD CARPENTER Height 162.6 cm (5' 4 ) 09/29/2024 1:25 PM BULKHEAD CARPENTER Body Mass Index 19.57 09/29/2024 1:25 PM BULKHEAD CARPENTER Plan of Treatment Not on file Procedures Procedure Name Priority Date/Time Associated Diagnosis Comments PAP, REFLEX HPV Routine 09/29/2024 1:51 PM BULKHEAD CARPENTER Well woman exam DIAGNOSTIC MAMMOGRAM BILATERAL W RONY Schedule Routine, Read Routine (OP Routine) 08/13/2023 8:40 AM BULKHEAD CARPENTER Abnormal mammogram from Last 3 Months or Most Recently Relevant to Health Maintenance Results * Pap, reflex HPV (09/29/2024 1:51 PM BULKHEAD CARPENTER) CLINICAL INFORMATION: [facility] [place] Comment:Routine exam LMP [facility] Comment:09-22-24 Previous Pap [facility] [place] Comment:NONE GIVEN Prev. Bx [facility] Comment:NONE GIVEN SOURCE: [facility] [place] [place] Comment:Cervix, Endocervix Pap, specimen adequacy [facility] Comment: Satisfactory for evaluation. Endocervical/transformation zone component present. HPV interp [facility] Comment: Cytology Results: Negative for intraepithelial lesion or malignancy. COMMENTS [facility] [place] Comment: This Pap test has been evaluated with computer assisted technology. Order Dispatcher Chief Zina Whitt [facility] [place] Comment: SXB, CT(ASCP) CT screening location: [facility] [place], [address] [place] [address] [place] [address] Record Systems Analyst: JACKIE GARCIA MD, CLIA: [id number] Review splicing technician [facility] Comment: CXS, CT(ASCP) CT screening location: [facility] [place], [address] [place] [address] [place] [address] Record Systems Analyst: JACKIE GARCIA MD, CLIA: [id number] Comment [facility] [place] Comment: EXPLANATORY NOTE: The Pap is [...] clinical information. Thin prep 09/29/2024 1:51 PM BULKHEAD CARPENTER 09/30/2024 1:52 AM BULKHEAD CARPENTER Anatoly Gill MD LAB CYTOLOGY ORDERABLES Fi nal Result [facility] [place] In [address], [facility] [place] [address] * (ABNORMAL) Diagnostic Mammogram Bilateral W Rony (08/13/2023 8:40 AM BULKHEAD CARPENTER) Anatomical Region Laterality Modality Breast Bilateral Mammography 08/13/2023 11:0 2 AM BULKHEAD CARPENTER Impressions 08/13/2023 11:02 AM BULKHEAD CARPENTER 1. 0.9 cm group of punctate and [...] Malissa Hernandez M.D. Narrative 08/13/2023 11:02 AM BULKHEAD CARPENTER EXAMINATION: BILATERAL DIGITAL DIAGNOSTIC MAMMOGRAM INCLUDING CAD [...] Most Recently Relevant to Health Maintenance Insurance [facility] Care Teams Clean Rice Grader And Reel Tender Relationship Specialty Start Date End Date Sara Dutton PA PCP - General Neurosurgery 09/25/23
--- OUTSIDE RECORDS SUMMARY | 2024-10-14 13:19 | XMS_ITS | Clinical Summary ---
Author Organization [facility] Address [address] [address] Phone Care Team Providers Care Financial Sales Assistant Name Role Phone Sara Dutton PAC Primary Care Pro vider Linus Eldridge MD Unavailable Beatriz Snyder MACHINE III COREMAKER, WILDLIFE PROTECTOR Unavailable Allergies Active Allergy Reactions Criticality Noted Date Comments Amoxicillin Rash 12/18/2017 Buspirone Other (see Comments) 06/21/2022 insomnia Escitalopram Nausea 06/21/2022 Fatigue; nausea Nitrofurantoin Shortness of Breath High 09/06/2015 Other Unknown PCN Penicillins Rash,Hives Low 08/06/2013 Sulfa Antibiotics Shortness of Breath 8 Sulfamethazine Shortness of Breath 12/18/2017 Medications fluticasone (FLONASE) 50 MCG/ACT Suspension 1-2 Sprays by Nasal route daily. 1-2 sprays each nostril daily for nasal congestion and allergies. 1 Bottle 3 8 Active hydrOXYzine (ATARAX) 25 MG Tablet Take 1 Tablet by mouth every 6 hours as needed for Anxiety. 30 Tablet 3 Active Additional Information Patient not taking.Reported on 08/06/2023 famotidine (PEPCID) 20 MG Tablet Take 1 Tablet by mouth 2 times daily. 90 Tablet 3 3 Active Additional Information Patient not taking.Reported on 09/19/2023 Ventolin HFA 108 (90 Base) MCG/ACT Aerosol Solution take 2 Puffs by inhalation every 4 hours as needed for Wheezing. 18 g 5 3 Active predniSONE (DELTASONE) 10 MG Tablet Take 1 Tablet by mouth daily. 10 Tablet 3 4 Active Additional Information Patient not taking.Reported on 03/10/2024 dicyclomine (BENTYL) 10 MG CapsuleIndicati ons:Irritable bowel syndrome with diarrhea Take 1 Capsule by mouth 3 times daily as needed for Other (pain). 90 Capsule 3 4 Active Additional Information Patient not taking.Reported on 04/07/2024 traMADol (ULTRAM) 50 MG TabletIndicatio ns:Nonspecific abdominal pain Take 1 Tablet by mouth every 8 hours as needed for Mild or more severe pain. 20 Tablet 4 Active Additional Information Patient not taking.Reported on 04/07/2024 Wixela Inhub 100-50 MCG/ACT AEROSOL POWDER, BREATH ACTIVATED INHALE 1 PUFF BY MOUTH TWICE DAILY 60 Each 4 Active Active Problems Problem Noted Date Diagnosed Date Melanoma 09/09/2023 Overview (09/09/2023): Derm following Dx LEFT upper arm Anxiety and depression 12/05/2022 21 weeks gestation of 09/12/2018 High cholesterol 09/12/2018 Gastroesophageal reflux disease 05/01/2018 History of miscarriage 10/15/2017 Irritable bowel syndrome with diarrhea 8 Endometriosis 10/15/2017 External hemorrhoid 09/12/2017 Non-seasonal allergic rhinitis due to pollen 07/2018 Pulmonary nodule 09/02/2007 Overview (08/06/2023): Dr. King, Asthma MVP (mitral valve prolapse) Genital herpes Resolved Problems Problem Noted Date Diagnosed Date Resolved Date HLD (hyperlipidemia) 018 Overview (08/10/2015): With high HDL > 140 Encounters Date Type Department Care Team Description 09/07/2024 Telephone [facility] - [place] [address] [place] [address] Beatriz Snyder APRN, WILDLIFE PROTECTOR 07/20/2024 Refill [facility] Internal [facility] - [place] [address] [place] [address] Sara Dutton, PAC Medication Refill 07/14/2024 1:00 PM DESIGN DIRECTOR Office Visit [facility] - Pulmon[facility] & Sleep Medicine [facility] [address] [facility] [address] Linus Eldridge MD Mild intermittent asthma without complication (Primary Dx); Non-seasonal allergic rhinitis due to pollen; Pulmonary nodule; Gastroesophageal reflux disease with esophagitis without hemorrhage Discharge Disposition: Discharged to home or Selfcare 07/14/2024 Travel from Last 3 Months Immunizations Immunization Administration Dates Next Due Influenza Vaccine 05/18/2017, 6,06/02/2015,05/25 Influenza Vaccine greater than 3 yrs 06/26/2016, 06/02/2015,06/02/2013 01/31/2017 Influenza Vaccine, MDCK,quadrivalent, pres free 06/05/2022,05/06/2019 Influenza Vaccine, Quadrivalent, PF 12/2022,06/08/2021,05/30/2020,08/06,05/19/2017 Influenza, Seasonal, Injecta ble, Undefined 06/02/2013,06/29/2012 Pneumococcal Vaccine Adult - 23 Valent 08/09/2015 TDAP Vaccine 11/20/2018,09/02/2012 Tetanus Toxoid, Unspecified Formulation 09/02/1998 Varicella Vaccine Live 07/15/2014 Family History Medical History Relation Name Comments Hypertension Father Cancer Maternal Grandmother breast Hypertension Mother Cancer Paternal Grandmother colon Relation Name Status Comments Father Alive Maternal Grandmother Mother Alive Paternal Grandmother Social History Tobacco Use Types Packs/Day Years [...] 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 Not on file Not on file Last Filed Vital Signs Vital Sign Reading Time Taken Comments Blood Pressure 118/70 07/14/2024 1:06 PM DESIGN DIRECTOR Pulse 113 07/14/2024 1:06 PM DESIGN DIRECTOR Temperature 36.4 C (97.5 F) 07/14/2024 1:06 PM DESIGN DIRECTOR Respiratory Rate 14 07/14/2024 1:06 PM DESIGN DIRECTOR Oxygen Saturation 100% 07/14/2024 1:06 PM DESIGN DIRECTOR Inhaled Oxygen Concentration - - Weight 50.8 kg (112 lb) 07/14/2024 1:06 PM DESIGN DIRECTOR Height 162.6 cm (5' 4 ) 07/14/2024 1:06 PM DESIGN DIRECTOR Body Mass Index 19.22 07/14/2024 1:06 PM DESIGN DIRECTOR Plan of Treatment Upcoming Encounters Date Type Department Care Team (Late st Contact Info) Description 11/27/2024 1:00 PM CDT Office Visit [facility] [address] [place] [id number] Sara Dutton, PAC [address] [place] [address] 01/11/2025 1:15 PM CDT [facility] [address] [place] [address] Linus Eldridge MD [address] [place] [address] Health Maintenance Due Date Last Done Comments Hepatitis C Virus (HCV) Screening 1983 Hepatitis B Immunization (1 of 3 - 19+ 3-dose series) 2002 Pneumococcal Immunization Combined (2 of 2 - PCV) 08/09/2016 08/09/2015 Pap Smear 08/02/2019 08/02/2016 Influenza Immunization (#1) 2024 10/0 12/2022, 06/05/2022, 06/08/2021, Additional history exists SARS-COV-2 Immunization ( season) 2024 06/08/2022, 08/02/2021, 11/22/2020, Additional history exists Cervical Cancer Screening (CCS) 09/25/2028 HPV/Cotest 09/25/2028 09/25/2023 Td Immunization Every 10 Years (Adults With 1 Tdap) 11/20/2028 11/20/2018, 09/02/2012 Respiratory Syncytial Virus (RSV) Immunization (Adult) (1 - 1-dose 75+ series) 2058 Discussion re Starting/Frequency of Mammograms Completed 07/06/2024, 01/02/2024, 08/13/2023, Additional history exists Meningococcal Immunization (ACWY) Aged Out No longer eligible based on patient's age to complete this topic Rotavirus Immunization Aged Out No lo nger eligible based on patient's age to complete this topic Goals Goal Patient Goal Type Associated Problems Recent Progress Patient-Stated? Author Behavioral Health Behavioral Health On track(2021 9:10 AM CDT) Yes Hiral Gardner, RABBLER Note: I need to cope better with my anxiety Goal/Objective: Decrease anxiety. Anticipated Time Frame for Goal Completion: 6 months Goal Reviewed with: patient Readiness to change: Ready to change Department associated with goal: [facility] Steps [...] Behavioral Health On track(2021 9:10 AM CDT) Hiral Cosby, DEACON Note: Goal/Objective: Increase coping skills to manage stress. Anticipated Time Frame for Goal Completion: 6 months Goal Reviewed with: patient Readiness to change: Ready to change Department associated with goal: [facility] Steps to achieve goal: will attend counseling/psychotherapy at least 6 sessions at least once monthly, utilizing individual and/or group sessions to express thoughts and feelings. will verbalize understanding of depression and anxiety, ex: causes/contributing and risk factors, prevalence of conditions in the general population. will identify two or more skills to gain peace and relieve stress. Procedures Procedure Name Priority Date/Time Associated Diagnosis Comments MAMMOGRAM BILATERAL GENERIC 07/06/2024 12:00 AM DESIGN DIRECTOR from Last 3 Months or Most Recently Relevant to Health Maintenance Results * MAMMOGRAM BILATERAL MISCELLANEOUS (07/06/2024 12:00 AM DESIGN DIRECTOR) 07/06/2024 us Provider Scan IMG MAMMO ORDERABLES Final Resul t SCAN from Last 3 Months or Most Recently Relevant to Health Maintenance Insurance [facility] Care Teams Financial Sales Assistant Relationship Specialty Start Date End Date Sara Dutton [facility] [address] [place] [address] PCP - General Physician Microcomputer Technician 10/15/17 Linus Eldridge MD [address] [place] [address] Consulting Physician Pulmonary Disease 12/07/21 Beatriz Snyder APRN, WILDLIFE PROTECTOR [address] [place] [address] Nurse Practitioner Advanced Practice Nurse 03/14/23
--- OUTSIDE RECORDS SUMMARY | 2024-10-14 13:19 | XMS_ITS | Clinical Summary ---
Author Organization [facility] Address [address] [place] [address] Care Team Providers Care Patient Financial Specialist Name Role Phone Sara Dutton PA-C Primary Care Pr ovider Source Comments [facility],non-owned Affiliates and Associated Physician Practices is amultiple site organization consisting of ambulatory clinics and hospital sitesin [place], [place], [place] and [place]. This disclosure is being madepursuant to the Care Everywhere program and may not contain all information available regarding this patient. Last updated 18.[facility] Allergies Active Allergy Reactions Criticality Noted Date Comments Amoxicillin Rash Medium 09/30/2023 Nitrofurantoin Shortness of Breath High 09/06/2015 Sulfacetamide Shortness of Breath High 09/30/2023 Medications * Be aware that medications may not be up to date on this document. Alwaysverify current medications with the patient. Medication Sig Dispensed Refills Start Date End Date Status fluticasone-salmet eran (Advair Diskus) 100-50 MCG/ACT inhaler Inhale 1 (one) puff by mouth 2 times daily 08/30/2023 Active albuterol HFA (Ventolin HFA) 108 (90 Base) MCG/ACT inhaler Inhale 2 (two) puffs by mouth every 4 hours as needed 08/06/2023 Active acetaminophen (Tylenol) 325 MG tablet Take 2 (two) tablets by mouth every 6 hours Maximum allowable Acetaminophen amount = 4 Grams (4000 mg) / 24 hours. 03/18/2024 Active ibuprofen (Motrin) 400 MG tablet Take 1 (one) tablet by mouth every 6 hours as needed for Pain 03/18/2024 Active methocarbamol (Robaxin) 750 MG tablet Take 1 (one) tablet by mouth every 6 hours as needed for Muscle Spasms 12 tablet 03/18/2024 Active Active Problems Problem Noted Date Diagnosed Date Catamenial pneumothorax 03/18/2024 Traumatic pneumohemothorax, initial encounter Hemothorax 03/14/2024 Pneumothorax 03/14/2024 Melanoma of left upper arm 09/30/2023 Social History Tobacco Use Types Packs/Day Years Used Date Smoking Tobacco: Never Smokeless Tobacco: Never Tobacco Cessation:Counseling Given: Not Answered Alcohol Use Standard Drinks/Week Comments Never 0 (1 standard drink = 0.6 oz pur e alcohol) AUDIT-C Answer Date Recorded Q1: How often do you have a drink containing alcohol? Never 03/16/2024 Q2: How many drinks containi ng alcohol do you have on a typical day when you are drinking? Patient does not drink Q3: How often do you have si x or more drinks on one occasion? Never 03/16/2024 Overall Financial Resource Strain (CARDIA) Answe r Date Recorded How hard is it for you to pa y for the very basics like food, housing, medical care, and heating? Not very hard 03/16/2024 [facility] Occupat ional Health - Occupational Stress Questionnaire Answer Date Recorded Do you feel stress - tense, restless, nervous, or anxious, or unable to sleep at night because your mind is troubled all the time - these days? To some extent 03/16/2024 Hunger Vital Sign Answer Date Recorded Within the past 12 months, y ou worried that your food would run out before you got the money to buy more. Never true 03/16/20 24 Within the past 12 months, t he food you bought just didn't last and you didn't have money to get more. Never true 03/16/2024 PRAPARE - Transportation Answer Date Re corded In the past 12 months, has l ack of transportation kept you from medical appointments or from getting medications? No 03/02 In the past 12 months, has l ack of transportation kept you from meetings, work, or from getting things needed for daily living? No 03/16/2024 Housing Stability Vital Sign Answer Cristopher e Recorded In the last 12 months, was t here a time when you were not able to pay the mortgage or rent on time? No 03/16/2024 In the last 12 months, how many places have you lived? 1 03/16/2024 In the last 12 months, was t here a time when you did not have a steady place to sleep or slept in a mcfp (including now)? No 03/16/2024 Sex and Gender Information Value Date Recorded Sex Assigned at Not on file Gender Identity Not on file Sexual Orientation Not on file Last Filed Vital Signs Vital Sign Reading Time Taken Comments Blood Pressure 112/77 05/11/2024 10:27 AM CDT Pulse 77 05/11/2024 10:27 AM CDT Temperature 36.8 C (98.3 F) 03/30/2024 2:06 PM CDT Respiratory Rate 17 03/18/2024 7:50 AM CDT Oxygen Saturation 100% 05/11/2024 10:27 AM CDT Inhaled Oxygen Concentration - - Weight 49.9 kg (110 lb) 05/11/2024 10:27 AM CDT Height 162.6 cm (5' 4 ) 05/11/2024 10:27 AM CDT Body Mass Index 18.88 05/11/2024 10:27 AM CDT Plan of Treatment Upcoming Encounters Date Type Department Care Team (Late st Contact Info) Description 11/09/2024 1:15 PM CDT Office Visit [facility] - General Surgery [address] [place] [phone] [place] MD [facility] [address] [place] [id number] Health Maintenance Due Date Last Done Comments LIPID TESTING 1985 PAP SMEAR 1985 HIV SCREENING 1998 HEPATITIS C SCREENING 07/04/2001 DTAP/TDAP/TD VACCINES (1 - Tdap) 2002 HEPATITIS B VACCINE (1 of 3 - 19+ 3-dose series) 2002 COVID-19 VACCINE ( - season) 2024 INFLUENZA VACCINE (#1) 2024 , 06/05/2022, 06/08/2021, Additional history exists DEPRESSION SCREENING 09/02/2024 MAMMOGRAM 08/13/2025 08/13/2023, 07/03, 07/17/2023 ZOSTER VACCINE (1 of 2) 2033 HIB VACCINE Aged Out No longer eligi ble based on patient's age to complete this topic HPV VACCINE Aged Out No longer eligi ble based on patient's age to complete this topic MENINGOCOCCAL (Group B) VACCINE Aged Out No longer eligible based on patient's age to complete this topic MENINGOCOCCAL VACCINE Aged Out No melony abelino eligible based on patient's age to complete this topic PNEUMOCOCCAL VACCINE Aged Out No long er eligible based on patient's age to complete this topic Advance Directives * Full Code (Latest Code Status on File) Date Activated Date Inactivated Comments 03/14/2024 6:04 PM 03/18/2024 10:05 AM Care Teams Patient Financial Specialist Relationship Specialty Start Date End Date Sara Dutton PA-C [address] [place] [address] PCP - General Physician Vegetable Harvest Worker 09/30/23
--- OUTSIDE RECORDS SUMMARY | 2024-10-14 13:19 | XMS_ITS | Clinical Summary ---
Author Organization [facility] Address [address] [place] [address] Phone Care Team Providers Care Wheat Grower Name Role Phone Unavailable Unavailable Unavailable Reason for Visit and Chief Complaint [Patient Encounter] Problems Includes: Problems addressed during this encounter and other active Problems All Visits Onset Date Resolved Date Provider Condition S tatus Mitral Valve Prolapse 11/07/2016 CARIN GILL RN NP BC Active Last Documented On 7 3:44PM ; [facility] Previous Leep 11/01/2014 EDOUARD SCHMITZ NP-BC Active Last Documented On 5 3:37PM ; [facility] Asthma 12/16/2013 EDOUARD SCHMITZ NP-BC Act abad Last Documented On 4 11:15AM ; [facility] ANXIETY STATE NOS 07/18/2012 TWAN MONTGOMERY MD A ctive Last Documented On 2 3:33PM ; [facility] Herpes Simplex Type II 07/18/2012 CARIN GILL RN NP BC Active Last Documented On 7 4:09PM ; [facility] HYPERTENSION NOS 07/18/2012 TWAN MONTGOMERY MD Ac tive Last Documented On 2 3:28PM ; [facility] 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 TWAN Saavedra MD Active Last Documented On 2 3:30PM ; [facility] Plan of Treatment No Plan of Treatment Recorded Assessments Includes: Assessments from this encounter No Assessments Recorded Medical Equipment - Implanted Devices Includes: Current Devices No Medical Equipment Recorded Medications Includes: Medications discussed during this encounter and other current Medications Current Medications (continue as prescribed) Nystatin [id number] External Cream 11/07/2016 Pro vider: Diagnosis: Last Documented On 11/07/2016 3:53PM By NICOLE LI MA ; [facility] Advair Diskus 250-50 MCG/DOSE IN AEPB 07/18/2012 Pro vider: Diagnosis: once daily. Last Documented On 2 3:08PM By MESSI DEL ANGEL LPN ; [facility] Medications Administered Includes: Administered Medications from [...] Active Last Documented On 8 2:18PM ; [facility] Macrobid Allergy 11/07/2016 Active Last Documented On 8 2:18PM ; [facility] Amoxicillin Allergy Skin Rashes / Er uption of skin, Hives / Urticaria 11/07/2016 Active Last Documented On 8 2:18PM ; [facility] Encounters Encounter Provider Location Date Check-In Time Check-Out Time Diagnosis [Patient Encounter] TWAN MONTGOMERY MD 01/24/2018 9:05AM 11:59PM Clinical Notes Includes: Clinical Notes from this encounter No Clinical Notes Recorded
--- OUTSIDE RECORDS SUMMARY | 2024-10-14 13:19 | XMS_ITS | Encounter Summary ---
Author Organization [facility] Address [address] [place] [address] Phone Care Team Providers Care Gritting Machine Operator Name Role Phone Sara Dutton [facility] Primary Care Pro vider Linus Eldridge MD Unavailable Beatriz Snyder APRN, MEDICAL ASST Unavailable Reason for Visit * Reason Comments Medication Refill Encounter Details Date Type Department Care Team (Late st Contact Info) Description 02/04/2021 Refill [facility] PULMONOLOGY [address] [place] [address] Linus Eldridge MD [address] [place] [address] Medication Refill Social History Tobacco Use Types Packs/Day Years Used Date Smoking Tobacco: Never Smokeless Tobacco: Never Alcohol Use Standard Drinks/Week Comments No 0 (1 standard drink = 0.6 oz pur e alcohol) PHQ-2 Answer Date Recorded Total Score - Questions 1-9 0 01/31 Education Answer Date Recorded What is the highest level of school you have completed or the highest degree you have received? 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 Not on file Not on file documented as of this encounter Plan of Treatment Upcoming Encounters Date Type Department Care Team (Late st Contact Info) Description 11/27/2024 1:00 PM CDT Office Visit [facility] - Internal Medicine [facility] [address] [place] [phone] Sara Dutton, PAC [address] [place] [address] 01/11/2025 1:15 PM CDT Office Visit [facility] Pulmonology & Sleep Medicine [facility] [address] [place] [phone] Linus Eldridge MD [address] [place] [address] documented as of this encounter Visit Diagnoses Not on filedocumented in this encounter Additional Health Concerns Infection Onset Date Last Indicated Resolved Time COVID - 19 09/12/2023 09/12/2023 09/22/2023 12:1 6 AM FLOOR CASHIER Assessment Noted Time PHQ-9 Depression Total Score: 0 02/10/20 20 1:00 PM CDT documented as of this encounter Care Teams Gritting Machine Operator Relationship Specialty Start Date End Date Sara Dutton, PAC [address] [place] [address] PCP - General Physician Tray Drier Operator 10/15/17 Linus Eldridge MD [address] [place] [address] Consulting Physician Pulmonary Disease 12/07/21 Beatriz Snyder APRN, MEDICAL ASST [address] [place] [address] Nurse Practitioner Advanced Practice Nurse 03/14/23 documented as of this encounter
--- OUTSIDE RECORDS SUMMARY | 2024-10-14 13:19 | XMS_ITS | Encounter Summary ---
Author Organization [facility] Address [address] [facility] [place] [address] Phone Care Team Providers Care Tax Assistant Name Role Phone Sara Dutton PAC Primary Care Pro vider Linus Eldridge MD Unavailable Beatriz Snyder APRN, SALES DEVELOPMENT SPECIALIST Unavailable Encounter Details Date Type Department Care Team (Late st Contact Info) Description 03/05/2020 Telephone [facility] [address] [place] [phone] Sara Dutton, PAC [address] [place] [address] Social History Tobacco Use Types Packs/Day Years Used Date Smoking Tobacco: Never Smokeless Tobacco: Never Alcohol Use Standard Drinks/Week Comments No 0 (1 standard drink = 0.6 oz pur e alcohol) PHQ-2 Answer Date Recorded Total Score - Questions 1-9 0 01/31 Comments No Sex and Gender Information Value Date Recorded Sex Assigned at Not on file Legal Sex Female 6:56 PM CDT Gender Identity Not on file Sexual Orientation Not on file 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 No / Unsure 03/05/2020 8:06 AM CDT documented as of this encounter Plan of Treatment Upcoming Encounters Date Type Department Care Team (Late st Contact Info) Description 11/27/2024 1:00 PM CDT Office Visit [facility] - Internal Medicine [facility] [address] [place] [phone] Sara Dutton, PAC [address] [place] [address] 01/11/2025 1:15 PM CDT Office Visit [facility] - Pulmonology & Sleep Medicine [facility] [address] [place] [phone] Linus Eldridge MD [address] [place] [address] documented as of this encounter Visit Diagnoses Not on filedocumented in this encounter Additional Health Concerns Infection Onset Date Last Indicated Resolved Time COVID - 19 03/05/2020 03/05/2020 03/08/2020 8:10 AM CDT COVID - 19 09/12/2023 09/12/2023 09/22/2023 12:1 6 AM PARATRANSIT DRIVER Assessment Noted Time PHQ-9 Depression Total Score: 0 02/10/20 20 1:00 PM CDT documented as of this encounter Care Teams Tax Assistant Relationship Specialty Start Date End Date Sara Dutton, PAC [address] [place] [address] PCP - General Physician Health Insurance Assessor 10/15/17 Linus Eldridge MD [address] [place] [address] Consulting Physician Pulmonary Disease 12/07/21 Beatriz Snyder APRN, SALES DEVELOPMENT SPECIALIST [address] [place] [address] Nurse Practitioner Advanced Practice Nurse 03/14/23 documented as of this encounter
--- OUTSIDE RECORDS SUMMARY | 2024-10-14 13:19 | XMS_ITS | Clinical Summary ---
Author Organization [facility] Address [address] [place] [address] Phone Care Team Providers Care Shactor Helper Name Role Phone Unavailable Unavailable Unavailable Reason for Visit and Chief Complaint * PHONE CALL Problems Includes: Problems addressed during this encounter and other active Problems All Visits Onset Date Resolved Date Provider Condition S tatus Mitral Valve Prolapse 11/07/2016 CARIN GILL RN NP BC Active Last Documented On 7 3:44PM ; [facility] Previous Leep 11/01/2014 EDOUARD SCHMITZ NP-BC Active Last Documented On 5 3:37PM ; [facility] Asthma 12/16/2013 EDOUARD SCHMITZ NP-BC Act abad Last Documented On 4 11:15AM ; [facility] ANXIETY STATE NOS 07/18/2012 TWAN MONTGOMERY MD A ctive Last Documented On 2 3:33PM ; [facility] Herpes Simplex Type II 07/18/2012 CARIN GILL RN NP BC Active Last Documented On 7 4:09PM ; [facility] HYPERTENSION NOS 07/18/2012 TWAN MONTGOMERY MD Ac tive Last Documented On 2 3:28PM ; [facility] 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 TWAN Saavedra MD Active Last Documented On 2 3:30PM ; [facility] Plan of Treatment No Plan of Treatment Recorded Assessments Includes: Assessments from this encounter No Assessments Recorded Medical Equipment - Implanted Devices Includes: Current Devices No Medical Equipment Recorded Medications Includes: Medications discussed during this encounter and other current Medications Current Medications (continue as prescribed) Nystatin [id number] External Cream 11/07/2016 Pro vider: Diagnosis: Last Documented On 11/07/2016 3:53PM By NICOLE LI MA ; [facility] Advair Diskus 250-50 MCG/DOSE IN AEPB 07/18/2012 Pro vider: Diagnosis: once daily. Last Documented On 2 3:08PM By MESSI DEL ANGEL LPN ; [facility] Past Medications on file ValACYclovir HCl 500MG Oral Tablet 12/03/2017 - 11/28/2018 Provider: CARIN WOODALL Diagnosis: Herpesviral infe ction, unspecified 1 daily Last Documented On 8 11:47AM By CARIN DOAN ; [facility] Terconazole 0.4% Vaginal Cream 11/11/2017 - 12/02/2017 Provider: CARIN WOODALL Diagnosis: Acute vulvitis as directed apply bid to perineum Last Documented On 8 4:21PM By CARIN DOAN ; [facility] Classic 28-0.8MG Oral Tablet 11/11/2017 - 11/06/2018 Provider: CARIN WADE Diagnosis: Encounter for ot h general cnsl and advice on procreation 1 daily Last Documented On 8 4:21PM By CARIN DOAN ; [facility] Plus 27-1MG Oral Tablet 11/07/2016 - 11/02/2017 Provider: CARIN WOODALL Diagnosis: Encounter for ot h general cnsl and advice on procreation TAKE DIRECTED W/FOOD Last Documented On 7 4:22PM By CARIN DOAN ; [facility] Azithromycin 500MG Oral Tablet 11/07/2016 - 11/08/2016 Provider: CARIN WADE Diagnosis: Acute vaginitis as directed 2 TABLETS NOW Last Documented On 7 4:39PM By CARIN DOAN ; [facility] Terconazole 0.4% Vaginal Cream 11/07/2016 [...] On 5 4:01PM By CARIN MENDIOLA ; [facility] Bactrim DS 800-160 MG Tablet 03/29/2015 - 04/08/2015 Provider: CARIN GILL RN CHRISTA BC Diagnosis: Inflam Disease O f Breast One tablet twice a day ONE T AB 2 TIMES A DAY WITH FOOD Last Documented On 5 3:51PM By CARIN MENDIOLA ; [facility] Cephalexin 250 MG OR CAPS 07/27/2014 - 07/30/2014 Prov ider: TWAN MONTGOMERY MD Diagnosis: Last Documented On 07/27/2014 9:11AM By TWAN MONTGOMERY MD ; [facility] Levothyroxine Sodium 50 MCG OR TABS 07/13/2014 - 09/11/2014 Provider: TWAN MONTGOMERY MD Diagnosis: Last Documented On 07/13/2014 4:36PM By TWAN MONTGOMERY MD ; [facility] Macrobid 100 MG OR CAPS 06/03/2014 - 06/10/2014 Provid er: EDOUARD MENDIOLA Diagnosis: DYSURIA Last Documented On 4 2:55PM By EDOUARD SCHMITZ MARI ; [facility] Macrobid 100 MG OR CAPS 02/15/2014 - 02/22/2014 Provid er: TWAN MONTGOMERY MD Diagnosis: Last Documented On 02/15/2014 4:26PM By TWAN MONTGOMERY MD ; [facility] Levora 0.15/30 (28) 0.15-30 MG-MCG OR TABS 04/27/2013 - 08/10/2013 Provider: TAWN MONTGOMERY MD Diagnosis: TAKE 1 TABLET BY MOUTH DAILY CONTINUOUSLY. SKIP PLACEBO TABLETS. Last Documented On 04/27/2013 9:28AM By TWAN MONTGOMERY MD ; [facility] Valtrex 500 MG OR TABS 09/01/2012 - 08/27/2013 Provide r: TWAN MONTGOMERY MD Diagnosis: TAKE ONE TABLET BY MOUTH DAILY Last Documented On 09/01/2012 10:40AM By TWAN MONTGOMERY MD ; [facility] Machelle 3-0.03 MG OR [...] 12/29/2009 9:25AM By TWAN MONTGOMERY MD ; [facility] Medications Administered Includes: Administered Medications [...] a dad 11/03/2015 Last Documented On 8 3:28PM ; [facility] Maternal grandmother's history of malign ant female breast neoplasm MGM 11/03/2015 Last Documented On 8 3:28PM ; [facility] Maternal history of hypertension mom 11/2015 Last Documented On 8 3:28PM ; [facility] Paternal grandmother's history of diabet es mellitus PGM and PGF 11/03/2015 Last Documented On 8 3:28PM ; [facility] Spouse name: Kun 12/16/2013 Last Documented On 8 3:28PM ; [facility] Family history of hypercholesterolemia d ad 12/16/2013 Last Documented On 8 3:28PM ; [facility] Family history of hypertension mom 12/16 Last Documented On 8 3:28PM ; [facility] Family history of diabetes mellitus PGM and PGF 09/07/2013 Last Documented On 8 3:28PM ; [facility] Family history of malignant female breas t neoplasm MGM 09/07/2013 Last Documented On 8 3:28PM ; [facility] Family history of Cancer 10/06/2009 Last Documented On 8 3:28PM ; [facility] Family history of Diabetes 10/06/2009 Last Documented On 8 3:28PM ; [facility] Family medical history of high blood pre ssure 10/06/2009 Last Documented On 8 3:28PM ; [facility] Review of Systems Includes: Review [...] Active Last Documented On 8 2:18PM ; [facility] Macrobid Allergy 11/07/2016 Active Last Documented On 8 2:18PM ; [facility] Amoxicillin Allergy Skin Rashes / Er uption of skin, Hives / Urticaria 11/07/2016 Active Last Documented On 8 2:18PM ; [facility] Encounters Encounter Provider Location Date Check-In Time Check-Out Time Diagnosis * PHONE CALL CARIN GILL RN CHRISTA 01/16/2018 3:28PM 11:59PM Clinical Notes Includes: Clinical Notes from this encounter No Clinical Notes Recorded
--- OUTSIDE RECORDS SUMMARY | 2024-10-14 13:19 | XMS_ITS ---
Care Plan - [facility] Created on: October 14, 2024 ISELA TWAN Pa : 1985 Sex: Female Author Organization [facility] Address [address] [place] [address] Phone Care Team Providers Care Booth Operator Name Role Phone Unavailable Unavailable Unavailable
--- OUTSIDE RECORDS SUMMARY | 2024-10-14 13:19 | XMS_ITS | Patient Health Summary ---
Author Organization [facility] Address [address] [place] [address] Care Team Providers Care Manager Functional Name Role Phone Sara Dutton PA-C Primary Care Pr ovider Note from [facility],non-owned Affiliates and Associated Physician Practices is amultiple site organization consisting of ambulatory clinics and hospital sitesin [place], [place], [place] and [place]. This disclosure is being madepursuant to the Care Everywhere program and may not contain all information available regarding this patient. Last updated 18.[facility] Allergies * Amoxicillin(Rash) -Medium Criticality * Nitrofurantoin(Shortness of Breath) -High Criticality * Sulfacetamide(Shortness of Breath) -High Criticality Medications * Be aware that medications may not be up to date on this document. Alwaysverify current medications with the patient. * fluticasone-salmeterol (Advair Diskus) 100-50 MCG/ACT inhaler(Started 08/30/2023) Inhale 1 (one) puff by mouth 2 times daily * albuterol HFA (Ventolin HFA) 108 (90 Base) MCG/ACT inhaler(Started 08/06/2023) Inhale 2 (two) puffs by mouth every 4 hours as needed * acetaminophen (Tylenol) 325 MG tablet(Started 03/18/2024) Take 2 (two) tablets by mouth every 6 hours Maximum allowable Acetaminophen amount = 4 Grams (4000 mg) / 24 hours. * ibuprofen (Motrin) 400 MG tablet(Started 03/18/2024) Take 1 (one) tablet by mouth every 6 hours as needed for Pain * methocarbamol (Robaxin) 750 MG tablet(Started 03/18/2024) Take 1 (one) tablet by mouth every 6 hours as needed for Muscle Spasms Active Problems Problem Noted Date Diagnosed Date [...] care, and heating? Not very hard 03/16/2024 [facility] [place] of Occupat ional Health - Occupational Stress [...] place to sleep or slept in a penitentiary (including now)? No 03/16/2024 Sex and Gender [...] Mass Index 18.88 05/11/2024 10:27 AM CDT Procedures * XR CHEST 2VW(Performed 03/30/2024) Performed for Pneumothorax, unspecified type * CBC W/O DIFFERENTIAL(Performed 03/18/2024) * PHOSPHORUS BLOOD(Performed 03/18/2024) * MAGNESIUM BLOOD(Performed 03/18/2024) * BASIC METABOLIC PANEL (CALCIUM TOTAL)(Performed 03/18/2024) * XR CHEST 1VW PORTABLE(Performed 03/18/2024) Performed for Pneumothorax, unspecified type * XR CHEST 1VW PORTABLE(Performed 03/17/2024) Performed for Pneumothorax, unspecified type * XR CHEST 1VW PORTABLE(Performed 03/17/2024) Performed for Traumatic pneumohemothorax, initial encounter, Hemothorax, Pneumothorax, unspecified type * PHOSPHORUS BLOOD(Performed 03/17/2024) * MAGNESIUM BLOOD(Performed 03/17/2024) * BASIC METABOLIC PANEL (CALCIUM TOTAL)(Performed 03/17/2024) * CBC W/O DIFFERENTIAL(Performed 03/17/2024) * XR CHEST 1VW PORTABLE(Performed 03/17/2024) Performed for Pneumothorax, unspecified type * EKG 12-LEAD(Performed 03/17/2024) Performed for Pneumothorax, unspecified type * XR CHEST 1VW PORTABLE(Performed 03/16/2024) Performed for Hemothorax, Pneumothorax, unspecified type * PHOSPHORUS BLOOD(Performed 03/16/2024) Performed for Hemothorax, Pneumothorax, unspecified type * MAGNESIUM BLOOD(Performed 03/16/2024) Performed for Hemothorax, Pneumothorax, unspecified type * BASIC METABOLIC PANEL (CALCIUM TOTAL)(Performed 03/16/2024) Performed for Hemothorax, Pneumothorax, unspecified type * CBC W/O DIFFERENTIAL(Performed 03/16/2024) Performed for Hemothorax, Pneumothorax, unspecified type * XR CHEST 1VW PORTABLE(Performed 03/15/2024) Performed for Pneumothorax, unspecified type * BLOOD TYPE VERIFICATION(Performed 03/15/2024) * XR CHEST 1VW PORTABLE(Performed 03/14/2024) Performed for Pneumothorax, unspecified type * PT EVAL AND TREAT(Performed 03/14/2024) * OT EVAL AND TREAT(Performed 03/14/2024) * PATHOLOGY TISSUE(Performed 03/14/2024) Performed for Pneumothorax, unspecified type * ENDOTRACHEAL TUBE NOTE(Performed 03/14/2024) * AL THORACOSCOPY,DX PERICARD W BX(Performed 03/14/2024) Performed for Pneumothorax, unspecified type * TYPE + SCREEN PANEL(Performed 03/14/2024) * BASIC METABOLIC PANEL (CALCIUM TOTAL)(Performed 03/14/2024) Performed for Traumatic pneumohemothorax, initial encounter * MAGNESIUM BLOOD(Performed 03/14/2024) Performed for Traumatic pneumohemothorax, initial encounter * PHOSPHORUS BLOOD(Performed 03/14/2024) Performed for Traumatic pneumohemothorax, initial encounter * HCG BETA BLOOD QUANTITATIVE(Performed 03/14/2024) Performed for Pneumothorax, unspecified type * CBC W/O DIFFERENTIAL(Performed 03/14/2024) Performed for Traumatic pneumohemothorax, initial encounter * XR CHEST 1VW PORTABLE(Performed 03/14/2024) Performed for Hemothorax * PATHOLOGY TISSUE EXAM (STL)(Performed 10/18/2023) Performed for Melanoma of left upper arm (HCC) * NM LYMPHOSCINTIGRAPHY(Performed 10/18/2023) Performed for Malignant melanoma of left upper extremity (HCC) * EKG 12-LEAD(Performed 09/30/2023) Performed for Malignant melanoma of left upper extremity (HCC) * XR CHEST 2VW(Performed 09/30/2023) Performed for Malignant melanoma of left upper extremity (HCC) * COMPREHENSIVE METABOLIC PANEL(Performed 09/30/2023) * CBC W AUTO DIFFERENTIAL(Performed 09/30/2023) * SARS-COV-2 (COVID-19) IN HOUSE(Performed 03/05/2020) Results * XR CHEST 2VW (03/30/2024 1:24 PM CDT) Only the most recent of2 resultswithin the time period is included. Anatomical Region Laterality Modality Chest Radiographic Rhoda ging 03/30/2024 1:35 PM CDT Narrative 03/30/2024 9:23 PM CDT PROCEDURE: XR CHEST 2VW, DATE/TIME OF EXAM: 03/30/2024 1:25 PM, LOCATION [facility] INDICATION: J93.9: Pneumothorax, unspecified type COMPARISON: Chest x-ray from 03/18/2024 FINDINGS/IMPRESSION: Increased right apical pneumothorax measuring up to 2.1 cm. No pneumothorax on the left. Probable trace right pleural effusion. No focal consolidation. The cardiomediastinal silhouette is normal. > Dictated by Davis Sifuentes DO (resident intern). Marcus Rivero MD have personally reviewed and interpreted this examination/study. > Interpreting Provider: Marcus Lopez MD on 03/30/2024 9:23 PM Procedure Note Marcus Lopez MD - 03/30/2024 PROCEDURE: XR CHEST 2VW, DATE/TIME OF EXAM: 03/30/2024 1:25 PM, LOCATION [facility] INDICATION: J93.9: Pneumothorax, unspecified type COMPARISON: Chest x-ray from 03/18/2024 FINDINGS/IMPRESSION: Increased right apical pneumothorax measuring up to 2.1 cm. No pneumothorax on the left. Probable trace right pleural effusion. Nofocal consolidation. The cardiomediastinal silhouette is normal. > Dictated by Davis Sifuentes DO (resident intern). I, Marcus Lopez MD have personally reviewed and interpreted this examination/study. > Interpreting Provider: Marcus Lopez MD on 03/30/2024 9:23 PM Stanley Morales MD DIAGNOSTIC IM AGING ORDERABLES * (ABNORMAL) CBC W/O DIFFERENTIAL (03/18/2024 6:32 AM CDT) Only the most recent of4 resultswithin the time period is included. WBC 6.4 4.0 - 10.7 x10E9/L 03/18/2024 7:16 AM [facility] RBC Count 3.70(L) 3.90 - 5.20 x10E12/L 03/18/2024 7:16 AM [facility] Hemoglobin 11.2(L) 11.9 - 15.8 g/dL 03/18/2024 7:16 AM [facility] Hematocrit 33.6(L) 34.8 - 46.1 % 03/18/2024 7:16 AM [facility] MCV 90.8 80.0 - 98.0 fL 03/18/2024 7:16 AM [facility] MCH 30.3 26.7 - 33.6 pg 03/18/2024 7:16 AM [facility] MCHC 33.3 31.7 - 36.3 g/dL 03/18/2024 7:16 AM [facility] RDW-CV 13.4 11.3 - 14.8 % 03/18/2024 7:16 AM [facility] Platelet Count 210 150 - 420 x10E9/L 03/18/2024 7:16 AM [facility] MPV 9.5 7.8 - 11.4 fL 03/18/2024 7:16 AM [facility] Blood BLOOD SPECIMEN / Unknown Lab Venipuncture / Unknown 03/18/2024 6:32 AM CDT 03/18/2024 7:02 AM CDT Stanley Morales MD LAB - HEMATOL OGY ORDERABLES [facility] [address] [place] [address], [facility] [phone] * (ABNORMAL) BASIC METABOLIC PANEL (CALCIUM TOTAL) (03/18/2024 6:31 AM CDT) Only the most recent of4 resultswithin the time period is included. BUN 20 7 - 26 mg/dL 03/18/2024 7:34 AM [facility] Creatinine 0.68 0.56 - 0.96 mg/dL 03/18/2024 7:34 AM [facility] Sodium 140 136 - 145 mmol/L 03/18/2024 7:34 AM [facility] Potassium 3.7 3.5 - 4.5 mmol/L 03/18/2024 7:34 AM [facility] Chloride 109(H) 98 - 107 mmol/L 03/18/2024 7:34 AM [facility] CO2 22 22 - 29 mmol/L 03/18/2024 7:34 AM [facility] Glucose 110 70 - 115 mg/dL 03/18/2024 7:34 AM [facility] Calcium 9.3 8.4 - 10.2 mg/dL 03/18/2024 7:34 AM [facility] Anion Gap 9 6 - 16 03/18/2024 7:34 AM [facility] BUN/Creatinine Ratio 29(H) 7 - 23 03/18/2024 7:34 AM [facility] Osmolality Calculated 293 275 - 295 mOsm/kg 03/18/2024 7:34 AM [facility] eGFR by CKD-EPI >90 >=90 mL/min/1.7 3 m2 03/18/2024 7:34 AM [facility] Blood BLOOD SPECIMEN / Unknown Lab Venipuncture / Unknown 03/18/2024 6:31 AM CDT 03/18/2024 7:03 AM T Stanley Morales MD LAB - BID ANALYST RY ORDERABLES [facility] [address] [address], [facility] [phone] * PHOSPHORUS BLOOD (03/18/2024 6:31 AM CDT) Only the most recent of4 resultswithin the time period is included. Phosphorus 3.9 2.9 - 5.1 mg/dL 03/18/2024 7:34 AM CDT [facility] Blood BLOOD SPECIMEN / Unknown Lab Venipuncture / Unknown 03/18/2024 6:31 AM CDT 03/18/2024 7:03 AM CDT Stanley Morales MD LAB - BID ANALYST RY ORDERABLES [address] [address], [facility] [phone] * MAGNESIUM BLOOD (03/18/2024 6:31 AM CDT) Only the most recent of4 resultswithin the time period is included. Magnesium 2.0 1.6 - 2.6 mg/dL 03/18/2024 7:34 AM CDT [facility] Blood BLOOD SPECIMEN / Unknown Lab Venipuncture / Unknown 03/18/2024 6:31 AM CDT 03/18/2024 7:03 AM CDT Stanley Morales MD LAB - BID ANALYST RY ORDERABLES [address] [address], [facility] [phone] * XR CHEST 1VW PORTABLE (03/18/2024 5:02 AM CDT) Only the most recent of8 resultswithin the time period is included. Anatomical Region Laterality Modality Chest Radiographic Rhoda ging 03/18/2024 7:37 AM CDT Impressions 03/18/2024 7:38 AM CDT IMPRESSION: Right chest tube removed. Minimal apical pneumothorax > Interpreting Provider: Mata Haddad MD on 03/18/2024 7:38 AM Narrative 03/18/2024 7:38 AM CDT PROCEDURE: XR CHEST 1VW PORTABLE DATE/TIME OF EXAM: 03/18/2024 5:07 AM CLINICAL INFORMATION: None relevant/not provided if blank. Indication: J93.9: Pneumothorax, unspecified type Additional History: COMPARISON: Plain films from 03/17/2024 FINDINGS: The right basilar chest tube has been removed. There is a minimal right apical pneumothorax measuring only 3 mm. No pleural fluid collection. There is subtle hazy opacity the right lung base. The left lung is clear. The heart and mediastinum are unremarkable. Procedure Note Mata Haddad MD - 03/18/2024 PROCEDURE: XR CHEST 1VW PORTABLE DATE/TIME OF EXAM: 03/18/2024 5:07 AM CLINICAL INFORMATION: None relevant/not provided if blank. Indication: J93.9: Pneumothorax, unspecified type Additional History: COMPARISON: Plain films from 03/17/2024 FINDINGS: The right basilar chest tube has been removed. There is a minimal right apical pneumothorax measuring only 3 mm. No pleural fluid collection. There is subtle hazy opacity the right lung base. The left lung is clear. The heart and mediastinum are unremarkable. IMPRESSION: Right chest tube removed. Minimal apical pneumothorax > Interpreting Provider: Mata Haddad MD on 03/18/2024 7:38 AM Stanley Morales MD DIAGNOSTIC IM AGING ORDERABLES * EKG 12-LEAD (03/17/2024 12:48 AM CDT) Only the most recent of2 resultswithin the time period is included. Ventricular Rate 92 BPM [facility] Atrial Rate 92 BPM [facility] MUSE P-R Interval 138 ms [facility] MUSE QRS Duration ms 68 ms [facility] MUSE Q-T Interval ms 342 ms [facility] MUSE QTC Calculation (Bezet) 422 ms [facility] Calculated P [employer] 68 degrees [facility] Calculated R [employer] 71 degrees [facility] Calculated T [employer] 51 degrees [facility] Interpretation EKG NORMAL SINUS RHYTHM WITH SINUS ARRHYTHMIA NORMAL ECG NO PREVIOUS ECGS AVAILABLE Confirmed by JINA JADE MD ([id number]) on 03/17/2024 12:32:17 PM [facility] MUSE 03/17/2024 12:4 8 AM CDT 03/17/2024 12:32 PM CDT Stanley Morales MD ECG ORDERABLE S [facility] MUSE * BLOOD TYPE VERIFICATION (03/15/2024 12:09 AM CDT) ABO Rh A POS 03/15/2024 1:0 3 AM CDT [facility] Blood Bank BLOOD SPECIMEN / Unknown Venipuncture / Unknown 03/15/2024 12:09 AM CDT 03/15/2024 12:34 AM CDT Stanley Morales MD LAB - BLOOD B ANK ORDERABLES Performing Organization Address City/[facility]/ZIP Co de Phone Number [facility] [address] [place] [address], [facility] [phone] * PATHOLOGY TISSUE (03/14/2024 10:50 PM CDT) Case Report Surgical Pathology Report Case: [id number] Authorizing Provider: Stanley Morales, Collected: 03/14/2024 10:50 PM Ordering Location: [facility] Received: 03/16/2024 05:21 AM Pathologist: Beto Menezes MD Specimen: Soft Tissue, Other, Biopsy of diaphragm 03/17/2024 8:40 AM CDT [facility] Final Diagnosis Diaphragm, biopsy: - Fibrovascular tissue with mixed inflammation 03/17/2024 8:40 AM CDT [facility] Microscopic Description and Comment Histologic sections show soft tissue with a large caliber, ogmgcm-qmbmrc-kyswk vessel and associated surrounding mixed inflammation. There is no evidence of malignancy 03/17/2024 8:40 AM CDT [facility] Clinical History The patient is a 38 year-old female with who presents with a pneumothorax requiring VATS 03/17/2024 8:40 AM CDT [facility] Gross Description The requisition and specimen(s) are identified with the patient's name, Josselyn Little. Received in formalin, specimen A , is 1 hess-white soft tissue fragment measuring 0.2 x 0.1 x 0.1 cm. Submitted in toto in A1. MSL 03/17/2024 8:40 AM CDT [facility] Pathologist Location at [facility] 03/17/2024 8:40 AM CDT [facility] Disclaimer The performance characteristics of all immunohistochemical and indirect immunofluorescence stains (if any) cited in this report were determined by the [facility]. Some of these tests were developed by our own laboratory and have not been cleared or approved by the US Food and Drug Administration. The FDA does not require this test to go through premarket FDA review. These tests are used for clinical purposes. They should not be regarded as investigational or for research. This laboratory is certified under the Clinical Laboratory Improvement Amendments (CLIA) as qualified to perform high complexity clinical laboratory testing. This case has been personally reviewed and interpreted by the attending (teaching) pathologist. 03/17/2024 8:40 AM CDT [facility] Embedded Images 03/17/2024 8:40 AM CDT [facility] Biopsy, Excision (Soft Tissue, Other) 03/14/2024 10:50 PM CDT 03/16/2024 5:21 AM CDT Comment:Pre-op diagnosis: Pneumothorax, unspecified type [J93.9] Stanley Morales MD LAB - PATHOLO GY/CYTOLOGY ORDERABLES Performing Organization Address City/State/[facility] Co de Phone Number [facility] [address] [phone] * ETT LINE PERFORMABLE (03/14/2024 9:34 PM CDT) Narrative Joaquim Garcia MD - 03/14/2024 9:34 PM CDT Joaquim Garcia MD 03/14/2024 9:35 PM Endotracheal Tube Placement: Patient Location: OR. Intubation Event Date/Time: 03/14/2024 8:40 PM Procedure: intubation ([id number]) Procedure Section: Sedation: under general anesthesia. Indications for Airway Management: anesthesia Induction: standard IV Patient Position: sniffing and supine Mask Ventilation: easy. Blade Type: Video Blade Size: 3 Laryngoscopy View: grade 1 (full cords) Intubation Adjuncts: stylet Tube: double lumen Placement: oral Tube type: cuff - inflated Tube Size (FR): 35 Depth of Insertion (CM): 27 Measured From: lips Cuff Inflated With: air Number of Attempts: 1. Placement Verified By: direct visualization and CO2 monitor Tube secured with: adhesive tape. Dentition unchanged? Yes Difficult Airway? No. Procedure Start Time: 03/14/2024 8:40 PM. Staff Section Anesthesia Provider: Bernadette Bhatti DO Provider #1: Sheryl Barrow MD. Provider #2: Joaquim Garcia MD, Performed the procedure. Bernadette Bhatti DO GENERAL ANESTHESIA ORDERABLES * TYPE + SCREEN PANEL (03/14/2024 8:15 PM CDT) [facility] Antibody Screen NEG 9:17 PM CDT [facility] ABO Rh A POS 03/14/2024 9:17 PM CDT [facility] Blood Bank BLOOD SPECIMEN / Unknown Venipuncture / Unknown 03/14/2024 8:15 PM CDT 03/14/2024 8:23 PM CDT Stanley Morales MD LAB - BLOOD B ANK ORDERABLES [facility] [address] [place] [address], [facility] [phone] * HCG BETA BLOOD QUANTITATIVE (03/14/2024 8:14 PM CDT) [facility] Beta-hCG Total Quantitative <3 mIU/mL 03/14/2024 8:52 PM CDT [facility] Comment: HCG Numeric Result Interpretation: Non- Females: < 5 mIU/mL Post-Menopausal Females: < 7 mIU/mL This assay is cleared for use in the early detection of only. It is not approved for any other uses such as tumor marker screening, tumor marker monitoring, etc. and should not be used for any other purposes. Blood BLOOD SPECIMEN / Unknown Venipuncture / Unknown 03/14/2024 8:14 PM CDT 03/14/2024 8:15 PM CDT Stanley Morales MD LAB - BID ANALYST RY ORDERABLES [address] [address], [facility] [phone] * PATHOLOGY TISSUE EXAM (STL) (10/18/2023 9:30 AM STORAGE AND BACKUP ADMINISTRATOR) Case Report Surgical Pathology Report Case: [id number] Authorizing Provider: [place] MD Collected: 10/18/2023 09:30 AM Ordering Location: [facility] Received: 10/18/2023 10:51 AM Pathologist: Felicita Rodriguez MD Specimens: A) - [place] Lymph Node, left axillary stitch hot spot B) - [place] Lymph Node, left axillary stitch hot spot #2 C) - Arm Lesion, left upper stitch @12 D) - Arm Lesion, left upper superior margin E) - Arm Lesion, left upper inferior 10/22/2023 12:35 PM STORAGE AND BACKUP ADMINISTRATOR [facility] Final Diagnosis [place] lymph node #1, left axilla, excision: - No evidence of malignancy in one lymph node [place] lymph node #2, left axilla, excision: - No evidence of malignancy in one lymph node Skin, left upper arm, wide local excision: - Residual atypical melanocytic lesion not identified - Intradermal melanocytic nevus - Dermal scar consistent with prior biopsy site - See description Skin, left upper arm, superior margin, excision: - No evidence of malignancy Skin, left upper arm, inferior margin, excision: - No evidence of malignancy KL 10/22/2023 12:35 PM STORAGE AND BACKUP ADMINISTRATOR [facility] Clinical History Per the scanned copy of the outside pathology report, the patient had a shave biopsy of a left proximal posterior upper arm lesion diagnosed as melanoma, [place] thickness -0.65 mm, no ulceration (pT1a). Per the report the peripheral margin was involved and the deep margin was focally involved. 10/22/2023 12:35 PM [facility] Gross Description Received labeled with the patient's name, Josselyn Little, and left axillary sentinel node #1 stitch at hot spot is a 0.4 cm in greatest dimension lymph node with adherent lobulated soft tissue and a stitch designating hot spot. The specimen is entirely submitted in A1. Received in formalin labeled with patient's name, Josselyn Little, and left axilla sentinel node #2 stitch at hot spot is a 0.4 cm in greatest dimension lymph node with adherent lobulated soft tissue and a stitch designating hot spot. Specimen is entirely submitted in B1. Received in formalin labeled with patient's name, Josselyn Little, and left upper arm melanoma stitch at 12 is a 2 x 2 x 1 cm oval portion of skin is previously dyed blue and has a stitch designating 12. The specimen is inked as follows: 12 tip-green, 3 half-orange, 9 half-blue. The specimen is sectioned from 12-6 and entirely submitted as follows: C1-12 and 6 tips C2-C4 remainder of specimen from 12 to 6 Received in formalin labeled with the patient's name, Josselyn Little, and left upper arm melanoma superior margin is a 1 x 1 x 0.5 cm triangular-shaped portion skin. The resection margin is inked blue. The specimen is sectioned and a sales support representative section is submitted in D1. Received in formalin labeled with the patient's name, Josselyn Little, and left upper arm melanoma inferior margin is a 1.5 x 1 x 1 cm triangular-shaped portion skin. The resection margin is inked blue. Specimen is trisected and entirely submitted in E1. JI 10/22/2023 12:35 PM [facility] Microscopic Description Histologic sections of sentinel lymph node #1 show no evidence of malignancy in one lymph node by multiple H&E levels, [place]-1 and S100 immunohistochemical stains. Histologic sections of sentinel lymph node #2 show no evidence of malignancy in one lymph node by multiple H&E levels, [place]-1 and S100 immunohistochemical stains. Histologic sections of the left upper arm wide excision show a dermal scar consistent with the prior biopsy site. Toward the 9 o'clock peripheral edge in C4 there is a small, relatively bland intradermal melanocytic proliferation which shows positive staining for MART-1 with essentially no positive staining for Ki-67 on MART-1/Ki-67 dual stain. The melanocytic proliferation is negative for PRAME by immunohistochemistry. The findings support a diagnosis of a benign intradermal melanocytic nevus. A residual atypical melanocytic lesion is not identified. Histologic sections of the left upper arm superior margin show no evidence of malignancy. Histologic sections of the left upper arm inferior margin show no evidence of malignancy. KL 10/22/2023 12:35 PM [facility] Disclaimer All histochemical and/or immunohistochemical results are interpreted with controls that demonstrate appropriate staining reactions before reporting results. Note on use of immunocytochemistry reagents: This test was developed and its performance characteristic determined by [facility], Department of Laboratory Medicine. It has not been cleared or approved by the U.S. Food and Drug Administration (FDA). The FDA has determined that such clearance or approval is not necessary. The test is used for clinical purpose. It should not be regarded as investigational or for research. This laboratory is certified to perform high complexity testing. The performance characteristics of the IHC/JOHN assays have been validated on formalin-fixed paraffin embedded tissues only. The assays have not been validated on decalcified tissues. Results should be interpreted with caution. 10/22/2023 12:35 PM [facility] Embedded Images 10/22/2023 12:35 PM [facility] Pathology/Cytology LESION SPECIMEN / Unknown 10/18/2023 9:30 AM STORAGE AND BACKUP ADMINISTRATOR 10/18/2023 10:51 AM STORAGE AND BACKUP ADMINISTRATOR Miscellaneous samples (specimen) SPECIMEN FROM SENTINEL LYMPH NODE / Unknown 10/18/2023 9:30 AM STORAGE AND BACKUP ADMINISTRATOR 10/18/2023 10:51 AM STORAGE AND BACKUP ADMINISTRATOR Miscellaneous samples (specimen) LESION SPECIMEN / Unknown 10/18/2023 9:30 AM STORAGE AND BACKUP ADMINISTRATOR 10/18/2023 10:51 AM STORAGE AND BACKUP ADMINISTRATOR Miscellaneous samples (specimen) LESION SPECIMEN / Unknown 10/18/2023 9:30 AM STORAGE AND BACKUP ADMINISTRATOR 10/18/2023 10:51 AM STORAGE AND BACKUP ADMINISTRATOR Miscellaneous samples (specimen) LESION SPECIMEN / Unknown 10/18/2023 9:30 AM STORAGE AND BACKUP ADMINISTRATOR 10/18/2023 10:51 AM STORAGE AND BACKUP ADMINISTRATOR Mau Grove MD LAB - PATHOLOGY/CYTO LOGY ORDERABLES [facility] [address] [id number] * NM LYMPHOSCINTIGRAPHY (10/18/2023 8:08 AM STORAGE AND BACKUP ADMINISTRATOR) Anatomical Region Laterality Modality Nuclear Digisoni cs 10/18/2023 11:4 0 AM STORAGE AND BACKUP ADMINISTRATOR Narrative 10/18/2023 11:59 AM STORAGE AND BACKUP ADMINISTRATOR PROCEDURE: NM LYMPHOSCINTIGRAPHY DATE/TIME OF EXAM: 10/18/2023 8:08 AM CLINICAL INFORMATION: None relevant/not provided if blank. Indication: C43.62: Malignant melanoma of left upper limb, including shoulder (CMS-HCC) Additional History: COMPARISON: None. TECHNIQUE: ISOTOPE: 1.0 mCi of technetium Lymphoseek injected by Dr. Grove. FINDINGS: Mild radiotracer uptake is seen in the left axilla consistent with sentinel node. The patient was then transferred to the surgery department. Edited by Macy Mejia on 10/18/2023 11:55 AM > Interpreting Provider: Davis Gunderson MD on 10/18/2023 11:59 AM Procedure Note Davis Gunderson MD - 10/18/2023 PROCEDURE: NM LYMPHOSCINTIGRAPHY DATE/TIME OF EXAM: 10/18/2023 8:08 AM CLINICAL INFORMATION: None relevant/not provided if blank. Indication: C43.62: Malignant melanoma of left upper limb, including shoulder(CMS-HCC) Additional History: COMPARISON: None. TECHNIQUE: ISOTOPE: 1.0 mCi of technetium Lymphoseek injected by Dr. Grove. FINDINGS: Mild radiotracer uptake is seen in the left axilla consistent withsentinel node. The patient was then transferred to the surgery department. Edited by Macy Mejia on 10/18/2023 11:55 AM > Interpreting Provider: Davis Gunderson MD on 10/18/2023 11:59 AM Mau Grove MD NM ORDERABLES * CBC W AUTO DIFFERENTIAL (09/30/2023 9:46 AM STORAGE AND BACKUP ADMINISTRATOR) WBC 7.7 3.4 - 10.8 x10E3/uL [facility] ACCOUNT B[facility] RBC 4.23 3.77 - 5.28 x10E6/uL [facility] ACC[facility] Hemoglobin 12.9 11.1 - 15.9 g/dL [facility] ACCOUNT BILL Hematocrit 38.5 34.0 - 46.6 % [facility] ACCOUNT BILL MCV 91 79 - 97 fL [facility] ACCOUNT BILL MCH 30.5 26.6 - 33.0 pg [facility] ACCOUNT BILL MCHC 33.5 31.5 - 35.7 g/dL [facility] ACCOUNT BILL RDW 13.0 11.7 - 15.4 % [facility] ACCOUNT BILL Platelet Count 264 150 - 450 x10E3/uL [facility] ACCOUNT BILL Granulocytes % 69 Not Estab. % [facility] ACCOUNT BILL Lymphocytes % 24 Not Estab. % [facility] ACCOUNT BILL Monocytes % 5 Not Estab. % [facility] ACCOUNT BILL Eosinophils % 2 Not Estab. % [facility] ACCOUNT BILL Basophils % 0 Not Estab. % [facility] ACCOUNT BILL Immature Cells NOT AVAILABLE [facility] Comment:Result cannot be obt ained for this observation. Granulocytes Absolute 5.3 1.4 - 7.0 x10E3/uL [facility] ACCOUNT BILL Lymphocytes Absolute 1.9 0.7 - 3.1 x10E3/uL [facility] ACCOUNT BILL Monocytes Absolute 0.4 0.1 - 0.9 x10E3/uL [facility] ACCOUNT BILL Eosinophils Absolute 0.1 0.0 - 0.4 x10E3/uL [facility] ACCOUNT BILL Basophils Absolute 0.0 0.0 - 0.2 x10E3/uL [facility] ACCOUNT BILL Immature Granulocytes 0 Not Estab. % [facility] ACCOUNT BILL Immature Granulocytes Absolute 0.0 0.0 - 0.1 x10E3/uL [facility] ACCOUNT BILL nRBC NOT AVAILABLE [facility] Comment:Result cannot be obt ained for this observation. Comment Hematology NOT AVAILABLE [facility] ACCOUNT BILL Comment:Result cannot be obt ained for this observation. 09/30/2023 9:46 AM STORAGE AND BACKUP ADMINISTRATOR 09/30/2023 Narrative Resulting Agency Comment Lab Testing performed at: [facility] [id number] Mau Grove MD LAB - HEMATOLOGY ORD ERABLES [facility] ACCOUNT BILL [address] [place] [address] * COMPREHENSIVE METABOLIC PANEL (09/30/2023 9:46 AM STORAGE AND BACKUP ADMINISTRATOR) [facility] Glucose 82 70 - 99 mg/dL [facility] ACCOUNT BILL BUN 13 6 - 24 mg/dL [facility] ACCOUNT BILL Creatinine 0.80 0.57 - 1.00 mg/dL [facility] ACCOUNT BILL eGFR by CKD-EPI 95 >59 mL/min/1.7 3 [facility] ACCOUNT BILL BUN/Creatinine Ratio 16 9 - 23 [facility] ACCOUNT BILL Sodium 140 134 - 144 mmol/L [facility] ACCOUNT BILL Potassium 4.5 3.5 - 5.2 mmol/L [facility] ACCOUNT BILL Chloride 102 96 - 106 mmol/L [facility] ACCOUNT BILL CO2 21 20 - 29 mmol/L [facility] ACCOUNT BILL Calcium 9.4 8.7 - 10.2 mg/dL [facility] ACCOUNT BILL Protein Total 7.5 6.0 - 8.5 g/dL [facility] ACCOUNT BILL Albumin 4.7 3.9 - 4.9 g/dL [facility] ACCOUNT BILL Globulin Total 2.8 1.5 - 4.5 g/dL [facility] ACCOUNT BILL Albumin/Globulin Ratio 1.7 1.2 - 2.2 [facility] ACCOUNT BILL Bilirubin Total 0.4 0.0 - 1.2 mg/dL [facility] ACCOUNT BILL Alkaline Phosphatase 73 44 - 121 IU/L [facility] ACCOUNT BILL AST 19 0 - 40 IU/L [facility] ACCOUNT BILL ALT 8 0 - 32 IU/L [facility] ACCOUNT BILL 09/30/2023 9:46 AM STORAGE AND BACKUP ADMINISTRATOR 09/30/2023 Narrative Resulting Agency Comment Lab Testing performed at: [facility] [address] [facility] [id number] Mau Grove MD LAB - CHEMISTRY CATRACHITA DURAN [facility] ACCOUNT BILL [address] [place] [address] * SARS-COV-2 (COVID-19) IN HOUSE (03/05/2020 10:20 AM CDT) COVID-19 PCR Not detected Not detected, Invalid 03/07/2020 6:16 AM CDT [facility] Microbiology SPECIMEN FROM NASOPHARYNGEAL STRUCTURE / Unknown Collection / Unknown 03/05/2020 10:20 AM CDT 03/06/2020 1:32 PM CDT Narrative [facility] - 03/07/2020 6:16 AM CDT This Real Time RT-PCR assay was developed and its performance characteristics determined by [facility]. This test has been authorized [...] Provider Unknown LAB - MICROBIOLOGY O RDERABLES [facility] [address] [place], [place] [address], [facility] [phone] Care Teams Manager Functional Relationship Specialty Start Date End Date Sara Dutton PA-C [address] [place] [address] PCP - General Physician Photogrammetric Tech 09/30/23
--- OUTSIDE RECORDS SUMMARY | 2024-10-14 13:19 | XMS_ITS | Encounter Summary ---
Author Organization [facility] Address [address] [place] [address] Phone Care Team Providers Care Steel Plate Caulker Name Role Phone Sara Dutton PAC Primary Care Pro vider Linus Eldridge MD Unavailable Beatriz Snyder APRN, ELECTRIC MOTOR ANALYST Unavailable Reason for Visit * Reason Onset Date Comments Medication Refill Medication Refill 08/24/2020 90 day supply requested Encounter Details Date Type Department Care Team (Late st Contact Info) Description 08/19/2020 Refill [facility] - Family [facility] [address] [place] [phone] Sara Dutton, PAC [address] [place] [address] Medication Refill; Medication Refill (90 day supply requested) Social History Tobacco Use Types Packs/Day Years [...] 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 No / Unsure 08/18/2020 2:47 PM REVIEW NURSE documented as of this encounter Miscellaneous Notes * Telephone Encounter - Yelitza Jacques RN - 08/24/2020 7:41 AM REVIEW NURSE Received: [x]FAX []TELEPHONE CALL []MYCHART from: [x]PHARMACY []PATIENT/OTHER regarding medication management. Medication name and dose: Sucralfate 1mg. Quantity: (30 day, 90 day, 3 monthly scripts): 90 day. Pharmacy preference for this medication: [address] Outcome: [x]Medication pended, routed to surescripts []Medication refused []Informed caller of refills at pharmacy []Additional message to medication management RN []Verbal authorization for written order to pharmacy []Additional message to provider []Verified medication with pharmacy EW NURSE * Telephone Encounter - Suzan Thompson RN - 08/19/2020 3:50 PM CST Last RX 08/19/20 #120. Patient requesting 90 day supply Per nursing clinical judgement, provider to review and approve the medication(s) order(s) if appropriate. Requested Prescriptions Pending Prescriptions Disp Refills sucralfate (CARAFATE) 1 GM Tablet [Pharmacy Med Name: SUCRALFATE 1GM TABLETS] 360 Tab Sig: TAKE 1 TABLET BY MOUTH EVERY 6 HOURS Gastroenterology: Antiulcer - Antiacids Passed - 08/19/2020 12:13 PM Passed - Valid encounter within last 12 months Past Office Visits Recent Outpatient Visits Today [facility] - Family [facility] - Sara Restrepo, ANDREA 6 months ago Well adult exam [facility] - Sara Restrepo PAC 1 year ago Gastroesophageal reflux disease, esophagitis presence not specified [facility] - Family Medicine - Sara Retsrepo PAC 2 years ago Gastroesophageal reflux disease, esophagitis presence not specified [facility] - Family Medicine - Sara Restrepo PAC 2 years ago Sore throat [facility] - [facility] - Sara Restrepo PAC Upcoming Appointments Future Appointments In 3 months Linus Eldridge MD [facility] PULMONOLOGY, [facility] DATA ANALYSIS ASSISTANT - Recent and Past Visits Recent Visits Date Type Provider Dept 02/10/20 Office Visit Sara Dutton PAC [facility] Showing recent visits within past 460 days with a meds authorizing provider and meeting all other requirements Today's Visits Date Type Provider Dept 08/19/20 Telemedicine Sara Dutton PAC [facility] Showing today's visits with a meds authorizing provider and meeting all other requirements Future Appointments No visits were found meeting these conditions. Showing future appointments within next 90 days with a meds authorizing provider and meeting all other requirements EW NURSE documented in this encounter Plan of Treatment Upcoming Encounters Date Type Department Care Team (Late st Contact Info) Description 11/27/2024 1:00 PM CDT Office Visit [facility] - Internal Medicine - [place] [address] [place] [address] Sara Dutton PAC [address] [place] [address] 01/11/2025 1:15 PM CDT Office Visit [facility] - Pulmonology & Sleep Medicine - [place] [address] [place] [phone] Linus Eldridge MD [address] [place] [address] documented as of this encounter Visit Diagnoses Not on filedocumented in this encounter Additional Health Concerns Infection Onset Date Last Indicated Resolved Time COVID - 19 09/12/2023 09/12/2023 09/22/2023 12:1 6 AM REVIEW NURSE Assessment Noted Time PHQ-9 Depression Total Score: 0 02/10/20 1:00 PM CDT documented as of this encounter Care Teams Steel Plate Caulker Relationship Specialty Start Date End Date Sara Dutton, PAC [address] [place] [address] PCP - General Physician Cleaning Associate 10/15/17 Linus Eldridge MD [address] [place] [phone] Consulting Physician Pulmonary Disease 12/07/21 Beatriz Snyder APRN, ELECTRIC MOTOR ANALYST [address] [place] [address] Nurse Practitioner Advanced Practice Nurse 03/14/23 documented as of this encounter
--- OUTSIDE RECORDS SUMMARY | 2024-10-14 13:19 | XMS_ITS | Referral Summary ---
Author Organization [facility] Address [address] [place] [address] Care Team Providers Care Soil Field Technician Name Role Phone Sara Dutton PA-C Primary Care Pr ovider Source Comments [facility],non-owned Affiliates and Associated Physician Practices is amultiple site organization consisting of ambulatory clinics and hospital sitesin [place], [place], [place] and [place]. This disclosure is being madepursuant to the Care Everywhere program and may not contain all information available regarding this patient. Last updated 18.[facility] Allergies Active Allergy Reactions Criticality Noted Date [...] care, and heating? Not very hard 03/16/2024 [facility] - Occupational Stress [...] Mass Index 18.88 05/11/2024 10:27 AM CDT Functional Status Functional Status Response Date of Assess ment Is person deaf or have serious hearing difficult y? No 03/16/2024 Is person blind or have serious difficulty seein g? No 03/16/2024 Does person have serious dif ficulty walking/climbing stairs? No 03/16/2024 Does person have difficulty dressing/bathing? No 03/16/2024 Does person have difficulty doing errands alone? No 03/16/2024 Cognitive Status Response Date of Assessm ent Does person have difficulty concentrating/remembering/making decisions? No 03/16/2024 Plan of Treatment Upcoming Encounters Date Type Department Care Team (Late st Contact Info) Description 11/09/2024 1:15 PM CDT Office Visit [facility] - General Surgery [address] [place] [address] Mau Grove MD [address] [facility] [address] [place] [address] Advance Directives * Full Code (Latest Code Status on File) Date Activated Date Inactivated Comments 03/14/2024 6:04 PM 03/18/2024 10:05 AM Care Teams Soil Field Technician Relationship Specialty Start Date End Date Sara Dutton PA-C [address] [place] [address] PCP - General Physician Tower Erector 09/30/23
== END 2024-10-14 13:09 | disposition home or self-care (01) ==
LOC: ANHIMG 13:13
PROVIDERS: PCP Physician Assistant; Visit Provider Obstetrics & Gynecology
DX: N60.11 Diffuse cystic mastopathy of right breast (principal)
CPT/HCPCS: 76641; 77061; 77065; G0279

== ENCOUNTER 2025-02-02 10:12 | Outpatient (CLI) | payer BC, SELFPAY ==
--- NOTE | ~2025-02-02 | MR_ITS ---
MR breast BI wo/w con 02/08/2025 16:52 CDT INDICATION: Screening for breast neoplasm. Dense breasts. TECHNIQUE: MRI of the breasts perform using standard protocol pre-and post IV contrast with the follo wing sequences: Axial T2 STIR, axial T1, axial vibrant T1 with fat suppression precontrast and multip hasic postcontrast. 10 cc MultiHance. COMPARISON: Comparison to multiple prior studies sequentially, with oldest reviewed study dated 07/03. FINDINGS: The breasts are composed of dense fibroglandular tissue. There are multiple bilateral breas t cysts. There are no abnormalities on the precontrast sequences. There is mild background parenchymal enhance ment. No enhancing lesions following contrast administration. No areas of enhancement meeting thres hold criteria on CAD analysis. No evidence of signal abnormalities in the axillary or internal mamma ry node distributions. LEFT BREAST: No signal abnormalities on precontrast sequences. There is mild background parenchymal enhancement. In the upper inner quadrants of the left breast at approximately 9:00, anterior third, 3 .2 cm posterior to the nipple there is linear nonmass-like enhancement measuring 1.3 x 0.4 x 0.5 cm w ith heterogeneous enhancement. There is rapid washout kinetics. . No evidence of signal abnormaliti es in the axillary or internal mammary node distributions. IMPRESSION: 1: Right breast: Negative. No evidence of malignancy. BI-RADS category 1. Recommend annual mammo graphy follow-up. 2: Left breast: Linear nonmass-like enhancement upper inner quadrant of the left breast, anterior th ird. Recommend repeat left breast ultrasound to exclude underlying mass at this location. BI-RADS CATEGORY 0 - INCOMPLETE STUDY, NEED ADDITIONAL IMAGING EVALUATION. Reviewed, dictated and finalized at location B. IMPRESSION: 1: Right breast: Negative. No evidence of malignancy. BI-RADS category 1. Recommend annual mammography follow-up. 2: Left breast: Linear nonmass-like enhancement upper inner quadrant of the le ft breast, anterior third. Recommend repeat left breast ultrasound to exclude u nderlying mass at this location. BI-RADS CATEGORY 0 - INCOMPLETE STUDY, NEED ADDITIONAL IMAGING EVALUATION.
--- OUTSIDE RECORDS SUMMARY | 2025-02-02 10:34 | XMS_ITS | Encounter Summary ---
Author Organization [facility] Address [address] [place] [address] Phone Care Team Providers Care Informatics Analyst Name Role Phone Sara Dutton PAC Primary Care Pro vider Linus Eldridge MD Unavailable Beatriz Snyder APRN, FRENCH INSTRUCTOR Unavailable Reason for Visit * Reason Onset Date Comments Medication Refill Medication Refill 08/24/2020 90 day supply requested Encounter Details Date Type Department Care Team (Late st Contact Info) Description 08/19/2020 Refill [facility] Medical Group - Family [facility] [address] [place] [phone] Sara Dutton, PAC [address] [place] [address] Medication Refill; Medication Refill (90 [...] 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 No / Unsure 08/18/2020 2:47 PM PRIMER EXPEDITOR AND DRIER documented as of this encounter Miscellaneous Notes * Telephone Encounter - Yelitza Jacques RN - 08/24/2020 7:41 AM PRIMER EXPEDITOR AND DRIER Received: [x]FAX []TELEPHONE CALL []MYCHART from: [x]PHARMACY [...] message to provider []Verified medication with pharmacy ER EXPEDITOR AND DRIER * Telephone Encounter - Suzan Thompson RN [...] Past Office Visits Recent Outpatient Visits Today [facility] - Family [facility] - Sara Restrepo, ANDREA 6 months ago Well adult exam [facility] - Sara Restrepo PAC 1 year ago Gastroesophageal reflux disease, esophagitis presence not specified [facility] - Family Medicine - Sara Restrepo PAC 2 years ago Gastroesophageal reflux disease, esophagitis presence not specified [facility] - [facility] - Sara Restrepo PAC 2 years ago Sore throat [facility] - Sara Restrepo PAC Upcoming Appointments Future Appointments In [address] [facility] PULMONOLOGY, [facility] CIRCUITRY NEGATIVE INSPECTOR - Recent and Past Visits Recent Visits Date Type Provider Dept 02/10/20 Office Visit Sara Dutton PAC [facility] Showing recent visits within past 460 days with a meds authorizing provider and meeting all other requirements Today's Visits Date Type Provider Dept 08/19/20 Telemedicine Sara Dutton PAC [facility] Showing today's visits with a meds authorizing provider and meeting all other requirements Future Appointments No visits were found meeting these conditions. Showing future appointments within next 90 days with a meds authorizing provider and meeting all other requirements ER EXPEDITOR AND DRIER documented in this encounter Plan of Treatment Upcoming Encounters Date Type Department Care Team (Late st Contact Info) Description 07/20/2025 1:30 PM PRIMER EXPEDITOR AND DRIER Office Visit [facility] Group - Pulmonology & Sleep Medicine [facility] [address] [place] [address] Linus Eldridge MD [address] [place] [address] 12/01/2025 1:00 PM CDT Office Visit [facility] Medical Group - Internal Medicine - [place] [address] [place] [phone] Sara Dutton PAC [address] [place] [address] documented as of this encounter Visit Diagnoses Not on filedocumented in this encounter Additional Health Concerns Infection Onset Date Last Indicated Resolved Time COVID - 19 09/12/2023 09/12/2023 09/22/2023 12:1 6 AM PRIMER EXPEDITOR AND DRIER Assessment Noted Time PHQ-9 Depression Total Score: 0 02/10/20 20 1:00 PM CDT documented as of this encounter Care Teams Informatics Analyst Relationship Specialty Start Date End Date Sara Dutton, PAC [address] [place] [address] PCP - General Physician Utility Tractor Operator 10/15/17 Linus Eldridge MD [address] [place] [address] Consulting Physician Pulmonary Disease 12/07/21 Beatriz Snyder APRN, FRENCH INSTRUCTOR [address] [place] [address] Nurse Practitioner Advanced Practice Nurse 03/14/23 documented as of this encounter
--- OUTSIDE RECORDS SUMMARY | 2025-02-02 10:34 | XMS_ITS | Encounter Summary ---
Author Organization [facility] Address [address] 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 Not on file Not [...] st Contact Info) Description 07/20/2025 1:30 PM PERLITE GRINDER [facility] - Pulmonology & Sleep Medicine [facility] [address] [place] [address] Linus Eldridge MD [address] [place] [address] 12/01/2025 1:00 PM CDT Office Visit [facility] Medical Group - Internal Medicine [facility] [address] [place] [phone] Sara Dutton, PAC [address] [place] [address] documented as of this encounter Visit Diagnoses Not on filedocumented in this encounter Additional Health Concerns Infection Onset Date Last Indicated Resolved Time COVID - 19 03/05/2020 03/05/2020 03/08/2020 8:10 AM CDT COVID - 19 09/12/2023 09/12/2023 09/22/2023 12:1 6 AM PERLITE GRINDER Assessment Noted Time PHQ-9 Depression Total Score: 0 02/10/20 20 1:00 PM CDT documented as of this encounter Care Teams Refrigeration Operator Relationship Specialty Start Date End Date Sara Dutton, PAC [address] [place] [address] PCP - General Physician Bulkhead Carpenter 10/15/17 Linus Eldridge MD [address] [place] [phone] Consulting Physician Pulmonary Disease 12/07/21 Beatriz Snyder APRN, COURT ASSISTANT [address] [place] [address] Nurse Practitioner Advanced Practice Nurse 03/14/23 documented as of this encounter
--- OUTSIDE RECORDS SUMMARY | 2025-02-02 10:34 | XMS_ITS | Clinical Summary ---
Author Organization [facility] B Address [address] [place] [address] Care Team Providers Care Baker Biscuit Name Role Phone Sara Dutton Primary Care [...] diaphragm with pneumothorax status post surgery at [facility] March 14. 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 Malignant melanoma of left u pper extremity including shoulder 09/25/2023 Asthma 02/08/2015 Overview (12/06/2016): Asthma Immunizations Immunization Administration Dates Next Due Pneumococcal Polysaccharide PPV23 [...] on file Legal Sex Female 2:17 PM [employer] Gender Identity Not on file Sexual Orientation [...] Comments Blood Pressure 108/74 09/29/2024 1:25 PM HIGH S[employer] B[employer] DIRECTOR Pulse 97 09/06/2017 5:41 PM [employer]IGH S[employer] B[employer] DIRECTOR Temperature 36.4 C (97.5 F) 09/06/2017 5:41 PM HIGH SCHOOL BAND DIRECTOR Respiratory Rate 16 09/06/2017 5:41 PM HIGH S[employer]OL BAND DIRECTOR Oxygen Saturation 99% 09/06/2017 5:41 PM HIGH SCHOOL BAND DIRECTOR Inhaled Oxygen Concentration - - Weight 51.7 kg (114 lb) 09/29/2024 1:25 PM HIGH SCHOOL BAND DIRECTOR Height 162.6 cm (5' 4) 09/29/2024 1:25 PM HIGH SCHOOL BAND DIRECTOR Body Mass Index 19.57 09/29/2024 1:25 PM HIGH SCHOOL BAND DIRECTOR Plan of Treatment Health Maintenance Due Date Last Done Comments Depression Screening 1983 Hepatitis C Screening 1983 Hepatitis B Screening 2001 Varicella Vaccines (2 of 2 - 13+ 2-dose series) 08/12/2014 07/15/2014 Pneumococcal vaccine <65 (2 of 2 - PCV) 08/09/2016 08/09/2015 Covid-19 Vaccine ( season) 2024 06/08/2022, 08/02/2021, 11/22/2020, Additional history exists Breast Cancer Screening-Mammogram 08/13/2024 08/13/2023, 08/13/2023, 07/17/2023, Additional history exists Influenza Vaccine (Season Ended) 2025 06/05/2023, 06/05/2022, 06/08/2021, Additional history exists Cervical Cancer Screening 09/29/20252024, 09/25/2023, 08/03/2016, Additional history exists Regular Well Visit/Exam 18-64 09/29/2025 09/29/2024, 09/25/2023 DTaP/Tdap/Td Vaccine (3 - Td or Tdap) 11/20/2028 11/20/2018, 09/02/2012 HPV Vaccines Aged Out No longer eligi ble based on patient's age to complete this topic Procedures Procedure Name Priority Date/Time Associated Diagnosis Comments PAP, REFLEX HPV Routine 09/29/2024 1:51 PM HIGH SCHOOL BAND DIRECTOR Well woman exam DIAGNOSTIC MAMMOGRAM BILATERAL W RONY Schedule Routine, Read Routine (OP Routine) 08/13/2023 8:40 AM HIGH SCHOOL BAND DIRECTOR Abnormal mammogram from Last 3 Months or Most Recently Relevant to Health Maintenance Results * Pap, reflex HPV (09/29/2024 1:51 PM HIGH SCHOOL BAND DIRECTOR) CLINICAL INFORMATION: [facility] [place] Comment:Routine exam LMP [facility] Comment:09-22-24 Previous Pap [facility] [place] Comment:NONE GIVEN Prev. Bx [facility] [place] Comment:NONE GIVEN SOURCE: [facility] [place] [facility] [place] Comment:Cervix, Endocervix Pap, specimen adequacy [facility] Comment: Satisfactory for evaluation. Endocervical/transformation zone component present. HPV interp [facility] Comment: Cytology Results: Negative for intraepithelial lesion or malignancy. COMMENTS [facility] [place] [facility] [place] Comment: This Pap test has been evaluated with computer assisted technology. Radio Equipment Repairer Zina Whitt In [facility] Comment: SXB, CT(ASCP) CT screening location: [place] [address] Farm Hand: JACKIE GARCIA MD, CLIA: [id number] Review maintainer operator Clotilde I n [place] Comment: CXS, CT(ASCP) CT screening location: [facility] [address] Farm Hand: JACKIE GARCIA MD, CLIA: [id number] Comment [facility] Comment: EXPLANATORY NOTE: The Pap is a [...] clinical information. Thin prep 09/29/2024 1:51 PM HIGH SCHOOL BAND DIRECTOR 09/30/2024 1:52 AM HIGH SCHOOL BAND DIRECTOR Anatoly Gill MD LAB CYTOLOGY ORDERABLES nal Result [facility] In [address] [address] * (ABNORMAL) Diagnostic Mammogram Bilateral W Rony (08/13/2023 8:40 AM HIGH SCHOOL BAND DIRECTOR) Anatomical Region Laterality Modality Breast Bilateral Mammography 08/13/2023 11:0 2 AM HIGH SCHOOL BAND DIRECTOR Impressions 08/13/2023 11:02 AM HIGH SCHOOL BAND DIRECTOR 1. 0.9 cm group of punctate and [...] Malissa Hernandez M.D. Narrative 08/13/2023 11:02 AM HIGH SCHOOL BAND DIRECTOR EXAMINATION: BILATERAL DIGITAL DIAGNOSTIC MAMMOGRAM INCLUDING CAD [...] Most Recently Relevant to Health Maintenance Insurance [facility] [id number] [place] [address] Care Teams Baker Biscuit Relationship Specialty Start Date End Date Sara Dutton PA PCP - General Neurosurgery 09/25/23
--- OUTSIDE RECORDS SUMMARY | 2025-02-02 10:34 | XMS_ITS | Clinical Summary ---
Author Organization [facility] Address [address] [address] Phone Care Team Providers Care Grease Machine Worker Name Role Phone Sara Dutton PAC Primary Care Pro vider Linus Eldridge MD Unavailable Beatriz Snyder CLOSING AGENT, QUALITY ASSURANCE TESTER Unavailable Allergies Active Allergy Reactions Criticality Noted [...] and allergies. 1 Bottle 3 8 Active Ventolin HFA 108 (90 Base) MCG/ACT Aerosol Solution take 2 Puffs by inhalation every 4 hours as needed for Wheezing. 18 g 5 3 Active Wixela Inhub 100-50 MCG/ACT AEROSOL POWDER, BREATH ACTIVATED INHALE 1 PUFF BY MOUTH TWICE DAILY 60 Each 4 Active Active Problems Problem Noted Date Diagnosed Date Other pneumothorax 12/01/2024 Overview (12/01/2024): RIGHT Linked to her endometriosis dx Melanoma 09/09/2023 Overview (09/09/2023): Derm following Dx 1-2023 LEFT upper arm Anxiety and depression 12/05/2022 21 weeks gestation of 09/12/2018 High cholesterol 09/12/2018 Gastroesophageal reflux disease 05/01/2018 History of miscarriage 10/15/2017 Irritable bowel syndrome with diarrhea 8 Endometriosis 10/15/2017 Overview (12/01/2024): History of cardiothoracic surgery from endometriosis of upper cavity External hemorrhoid 09/12/2017 Non-seasonal allergic rhinitis due to pollen 07/2018 Pulmonary nodule 09/02/2007 Overview (08/06/2023): Dr. King, Asthma MVP (mitral valve prolapse) Genital herpes Resolved Problems Problem Noted Date Diagnosed Date Resolved Date HLD (hyperlipidemia) 018 Overview (08/10/2015): With high HDL > 140 Encounters Date Type Department Care Team Description 01/11/2025 1:15 PM CDT Office Visit [facility] - Pulmonology & Sleep Medicine [facility] [address] [place] [phone] Linus Eldridge MD Mild intermittent asthma without complication (Primary Dx); Non-seasonal allergic rhinitis due to pollen; Gastroesophageal reflux disease with esophagitis without hemorrhage Discharge Disposition: Discharged to home or Selfcare 01/11/2025 Travel 12/04/2024 Results Follow-Up [facility] Internal Medicine - [address] [place] [phone] Sara Dutton, ANDREA CMP (COMPREHENSIVE METABOLIC PANEL), HEMOGLOBIN A1C W/ ESTIMATED GLUCOSE, LIPID PANEL, Additional followed-up results: 3 12/03/2024 8:00 AM CDT Lab [facility] Internal Medicine - [place] [address] Bernice, [place] Need for hepatitis C screening test; Well adult exam; High cholesterol Discharge Disposition: Discharged to home or Selfcare 12/01/2024 1:30 PM CDT Office Visit [facility] - [facility] Access [address] [place] [address] Sara Dutton, ANDREA Well adult exam (Primary Dx); Need for hepatitis C screening test; High cholesterol; Endometriosis; Other pneumothorax; Anxiety Discharge Disposition: Discharged to home or Selfcare 12/01/2024 Travel from Last 3 Months Immunizations Immunization Administration Dates Next Due Influenza Vaccine 05/18/2017, 6,06/02/2015,05/25 Influenza Vaccine greater than 3 yrs 06/26/2016, 06/02/2015,06/02/2013 01/31/2017 Influenza Vaccine, MDCK,quadrivalent, pres free 06/05/2022,05/06/2019 Influenza Vaccine, Quadrivalent, PF 10/12/2022,06/08/2021,05/30/2020,08/06,05/19/2017 Influenza, Seasonal, Injecta ble, Undefined 06/02/2013,06/29/2012 Influenza,Split Virus,Trivalent,Injectable,PF 06/12/2024 Pneumococcal Vaccine Adult - 23 Valent 08/09/2015 [...] Never Smokeless Tobacco: Never Tobacco Cessation:Counseling Given: No Alcohol Use Standard Drinks/Week Comments No 0 (1 standard drink = 0.6 oz pur e alcohol) PHQ-2 Answer Date Recorded Total Score - Questions 1-9 0 04/0 09/2024 Education Answer Date Recorded What is the [...] 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 Not on file Not on file Last Filed Vital Signs Vital Sign Reading Time Taken Comments Blood Pressure 104/60 01/11/2025 1:41 PM CDT Pulse 52 01/11/2025 1:41 PM CDT Temperature 36.2 C (97.1 F) 01/11/2025 1:41 PM CDT Respiratory Rate 14 01/11/2025 1:41 PM CDT Oxygen Saturation 100% 01/11/2025 1:41 PM CDT Inhaled Oxygen Concentration - - Weight 50.6 kg (111 lb 9.6 oz) 01/11/2025 1:41 P M CDT Height 162.6 cm (5' 4) 01/11/2025 1:41 PM CDT Body Mass Index 19.16 01/11/2025 1:41 PM CDT Plan of Treatment Upcoming Encounters Date Type Department Care Team (Late st Contact Info) Description 07/20/2025 1:30 PM CANCELING AND CUTTING CONTROL CLERK Office [facility] - Pulmonology & [facility] [address] [place] [phone] Linus Eldridge MD [address] [place] [address] 12/01/2025 1:00 PM CDT Office Visit [facility] - Internal Medicine - [place] [address] [place] [phone] Sara Dutton PAC [address] [place] [address] Health Maintenance Due Date Last Done Comments Hepatitis B Immunization (1 of 3 - 19+ 3-dose series) 2002 Pneumococcal Immunization Combined (2 of 2 - PCV) 08/09/2016 08/09/2015 Pap Smear 08/02/2019 08/02/2016 SARS-COV-2 Immunization ( season) 2024 06/08/2022, 08/02/2021, 11/22/2020, Additional history exists Mammogram 07/06/2025 07/06/2024, 05/0 10/2023, 08/13/2023, Additional history exists Cervical Cancer Screening (CCS) 09/25/2028 HPV/Cotest 09/25/2028 09/25/2023 Td Immunization Every 10 Years (Adults With 1 Tdap) 11/20/2028 11/20/2018, 09/02/2012 Respiratory Syncytial Virus (RSV) Immunization (Adult) (1 - 1-dose 75+ series) 2058 Influenza Immunization Completed , 06/05/2023, 06/05/2022, Additional history exists Discussion re Starting/Frequency of Mammograms Completed 10/14/2024, 07/06/2024, 01/02/2024, Additional history exists Hepatitis C Virus (HCV) Screening Completed 12/03/2024 Human Papillomavirus (HPV) Immunization Aged Out No longer eligible based on patient's age to complete this topic Meningococcal Immunization (ACWY) Aged Out No longer eligible based on patient's age to complete this topic Rotavirus Immunization Aged Out No lo nger eligible based on patient's age to complete this topic Goals Goal Patient Goal Type Associated Problems Recent Progress Patient-Stated? Author Behavioral Health Behavioral Health On track(2021 9:10 AM CDT) Yes Hiral Gardner, MANAGER DECISION SUPPORT Note: I need to cope better with my anxiety Goal/Objective: Decrease anxiety. Anticipated Time Frame for Goal Completion: 6 months Goal Reviewed with: patient Readiness to change: Ready to change Department associated with goal: [facility] Steps to achieve goal: [...] Health On track(2021 9:10 AM CDT) Hiral oCsby, DEACON Note: Goal/Objective: Increase coping skills to manage stress. Anticipated Time Frame for Goal Completion: 6 months Goal Reviewed with: patient Readiness to change: Ready to change Department associated with goal: [facility] Steps to achieve goal: [...] Procedure Name Priority Date/Time Associated Diagnosis Comments CBC WITH AUTO DIFFERENTIAL Routine 12/03/2024 8:00 AM CDT Well adult exam High cholesterol THYROID STIMULATING HORMONE (TSH) Routine 12/03/2024 8:00 AM CDT Well adult exam High cholesterol LIPID PANEL Routine 12/03/2024 8:00 AM CDT Well adult exam High cholesterol HEMOGLOBIN A1C W/ ESTIMATED GLUCOSE Routine 12/03/2024 8:00 AM CDT Well adult exam High cholesterol COMPLETE BLOOD COUNT (CBC) WITH DIFF Routine 12/03/2024 8:00 AM CDT Well adult exam High cholesterol CMP (COMPREHENSIVE METABOLIC PANEL) Routine 12/03/2024 8:00 AM CDT Well adult exam High cholesterol HEPATITIS C ANTIBODY Routine 12/03/2024 8:00 AM CDT Need for hepatitis C screening test SURGERY CONSULT 11/09/2024 12:00 AM CDT MAMMOGRAM UNILATERAL GENERIC 10/14/2024 12:00 AM CANCELING AND CUTTING CONTROL CLERK MAMMOGRAM BILATERAL GENERIC 07/06/2024 12:00 AM CANCELING AND CUTTING CONTROL CLERK from Last 3 Months or Most Recently Relevant to Health Maintenance Results * HEMOGLOBIN A1C W/ ESTIMATED GLUCOSE (12/03/2024 8:00 AM CDT) Pathologist [facility] HGB-A1C 5.0 4.0 - 6.0 % 12/03/2024 5:44 PM CDT [facility] Est Average Glucose 96.8 mg/dL 12/03/2024 5:44 PM CDT [facility] Blood Venipuncture / Unknown 12/03/2024 8:00 AM CDT 12/03/2024 8:00 AM CDT Narrative [facility] - 12/03/2024 5:44 PM CDT HEMOGLOBIN A1C: DIABETIC PATIENTS: WELL-CONTROLLED: 6.2 - 7.0 INTERMEDIATE WELL-CONTROLLED: 7.0 - 9.0 POORLY-CONTROLLED: >9.0 Specimens containing greater than 5% of Hemoglobin F may result in lower than expected % HbA1C results. Sara Dutton PAC CHEMISTRY ORDERAB LES Final Result [facility] [address] [place] [address] * (ABNORMAL) CBC WITH AUTO DIFFERENTIAL (12/03/2024 8:00 AM CDT) Pathologist [facility] WBC 5.93 4.00 - 12.00 10(3)/mcL 12/03/2024 6:04 PM CDT [facility] RBC 4.25 3.80 - 5.30 10(6)/mcL 12/03/2024 6:04 PM CDT [facility] HEMOGLOBIN (HGB) 13.3 12.0 - 15.8 g/dL 12/03/2024 6:04 PM CDT [facility] HEMATOCRIT (HCT) 41.4 36.0 - 47.0 % 12/03/2024 6:04 PM CDT [facility] MCV 97.4(H) 82.0 - 96.0 fL 12/03/2024 6:04 PM CDT [facility] MCH 31.3 26.0 - 34.0 pg 12/03/2024 6:04 PM CDT [facility] MCHC 32.1 31.0 - 36.0 g/dL 12/03/2024 6:04 PM CDT [facility] PLATELET COUNT 270 140 - 440 10(3)/mcL 12/03/2024 6:04 PM CDT [facility] RDW 13.5 11.8 - 15.5 % 12/03/2024 6:04 PM CDT [facility] MPV 10.2 9.7 - 12.4 fL 12/03/2024 6:04 PM CDT [facility] NEUTROPHILS 53.3 47.0 - 73.0 % 12/03/2024 6:04 PM CDT [facility] LYMPHOCYTES 36.1 18.0 - 42.0 % 12/03/2024 6:04 PM CDT [facility] MONOCYTES 5.2 4.0 - 12.0 % 12/03/2024 6:04 PM CDT [facility] EOSINOPHILS 4.7 0.0 - 5.0 % 12/03/2024 6:04 PM CDT [facility] BASOPHILS 0.7 0.0 - 1.0 % 12/03/2024 6:04 PM CDT [facility] ABSOLUTE NEUTROPHILS 3.16 1.60 - 7.70 10(3)/mcL 12/03/2024 6:04 PM CDT [facility] ABSOLUTE LYMPHOCYTES 2.14 1.30 - 3.20 10(3)/mcL 12/03/2024 6:04 PM CDT [facility] ABSOLUTE MONOCYTES 0.31 0.20 - 1.00 10(3)/mcL 12/03/2024 6:04 PM CDT [facility] ABSOLUTE EOSINOPHIL 0.28 0.00 - 0.40 10(3)/mcL 12/03/2024 6:04 PM CDT [facility] ABSOLUTE BASOPHILS 0.04 0.00 - 0.10 10(3)/mcL 12/03/2024 6:04 PM CDT [facility] NRBC PER 100 WBC 0 12/04/19 6:04 PM CDT [facility] Blood Venipuncture / Unknown 12/03/2024 8:00 AM CDT 12/03/2024 8:00 AM CDT Sara Dutton PAC HEMATOLOGY ORDERA BLES Final Result Performing Organization Address City/[facility]/ZIP Co de Phone Number [facility] [address] [place] [address] * THYROID STIMULATING HORMONE (TSH) (12/03/2024 8:00 AM CDT) Pathologist [facility] TSH 2.419 0.300 - 5.000 mIU/L 12/03/2024 6:05 PM CDT [facility] Blood Venipuncture / Unknown 12/03/2024 8:00 AM CDT 12/03/2024 8:00 AM CDT Sara MENDEZ CHEMISTRY ORDERAB LES Final Result Performing Organization Address City/[facility] Co de Phone Number [facility] [address] [place] [address] * (ABNORMAL) LIPID PANEL (12/03/2024 8:00 AM CDT) CHOLESTEROL 211(H) <200 mg/dL 12/03/2024 5:48 PM CDT [facility] TRIGLYCERIDES 64 <150 mg/dL 12/03/2024 5:48 PM CDT [facility] HDL CHOLESTEROL 85 >40 mg/dL 5:48 PM CDT [facility] LDL 113 <130 mg/dL 12/03/2024 5:48 PM CDT [facility] VLDL 13 10 - 50 mg/dL 12/03/2024 5:48 PM CDT [facility] CHOL/HDL RATIO 2.5 0.0 - 4.4 12/03/2024 5:48 PM CDT [facility] NON-HDL CHOLESTEROL 126 <130 mg/dL 12/03/2024 5:48 PM CDT [facility] IS THE PATIENT REQUIRED TO BE FASTING? Yes 12/03/2024 5:48 PM CDT [facility] HAS THE PATIENT BEEN FASTING? Yes 12/03/2024 5:48 PM CDT [facility] Blood Venipuncture / Unknown 12/03/2024 8:00 AM CDT 12/03/2024 8:00 AM CDT Sara Dutton PAC CHEMISTRY ORDERAB LES Final Result Performing Organization Address City/[facility]/ZIP Co de Phone Number [facility] [address] [place] [address] * HEPATITIS C ANTIBODY (12/03/2024 8:00 AM CDT) hepatitis C antibody 0.21 <1 S/CO 12/04/2024 3:34 PM CDT [facility] Comment: Signal/Cutoff ratio < 0.79 is Nondetected Signal/Cutoff ratio 0.80-0.99 is Grayzone Signal/Cutoff ratio > 0.99 is Detected Supplemental assays are recommended if signal/cutoff ratio is >/=1.00. Signal/cutoff ratio result >/= 5.00 is 97% predictive of positivity for recombinant immunoblot assay (RIBA) and will be reported to the [place] Department of Public Health as required. Blood Venipuncture / Unknown 12/03/2024 8:00 AM CDT 12/03/2024 8:00 AM CDT Sara Dutton PAC CHEMISTRY ORDERAB LES Final Result Performing Organization Address City/[facility]/ZIP Co de Phone Number [facility] [address] [place] [address], [place] * (ABNORMAL) CMP (COMPREHENSIVE METABOLIC PANEL) (12/03/2024 8:00 AM CDT) SODIUM 141 136 - 145 mmol/L 12/03/2024 5:48 PM CDT [facility] POTASSIUM 4.6 3.5 - 5.1 mmol/L 12/03/2024 5:48 PM CDT [facility] CHLORIDE 108(H) 98 - 107 mmol/L 12/03/2024 5:48 PM CDT [facility] CO2, VENOUS 25 22 - 30 mmol/L 12/03/2024 5:48 PM CDT [facility] ANION GAP 12.6 <18.0 mmol/L 12/03/2024 5:48 PM CDT [facility] GLUCOSE 60(L) 70 - 99 mg/dL 12/03/2024 5:48 PM CDT [facility] BUN 21(H) 5 - 18 mg/dL 12/03/2024 5:48 PM CDT [facility] CREATININE, BLOOD 0.73 0.60 - 1.00 mg/dL 12/03/2024 5:48 PM CDT [facility] BUN/CREATININE RATIO 29(H) 12 - 20 ratio 12/03/2024 5:48 PM CDT [facility] TOTAL PROTEIN 7.7 6.0 - 8.0 g/dL 12/03/2024 5:48 PM CDT [facility] ALBUMIN 4.3 3.5 - 5.0 g/dL 12/03/2024 5:48 PM CDT [facility] A/G RATIO 1.3 1.0 - 2.2 12/03/2024 5:48 PM CDT [facility] CALCIUM 9.1 8.7 - 10.5 mg/dL 12/03/2024 5:48 PM CDT [facility] T BILI 0.3 0.2 - 1.2 mg/dL 12/03/2024 5:48 PM CDT [facility] SGOT (AST) 24 <43 U/L 12/03/2024 5:48 PM CDT [facility] SGPT (ALT) 17 <56 U/L 12/03/2024 5:48 PM CDT [facility] ALKALINE PHOSPHATASE 58 40 - 150 U/L 12/03/2024 5:48 PM CDT [facility] IS THE PATIENT REQUIRED TO BE FASTING? No 12/03/2024 5:48 PM CDT [facility] GFR, ESTIMATED >60 >=60 12/03/2024 5:48 PM CDT [facility] Comment: Creatinine Clearance is the preferred criteria for selecting drug dose adjustments in renally impaired patients. The GFR is provided as additional pertinent clinical information. GFR is reported in mL/min/1.73 sq m. Calculation based on the Chronic Kidney Disease Epidemiology Collaboration (CKD- EPI) equation refit without adjustment for race. GFR, EST. >60 >=60 025 5:48 PM CDT [facility] GFR, EST. NONAFRICAN >60 >=60 12/03/2024 5:48 PM CDT [facility] Blood Venipuncture / Unknown 12/03/2024 8:00 AM CDT 12/03/2024 8:00 AM CDT Result [facility] Sara Dutton PAC CHEMISTRY ORDERAB LES Final Result Performing Organization Address City/[facility]/ZIP Co de Phone Number [facility] [address] [place] [address] * SURGERY CONSULT (11/09/2024 12:00 AM CDT) 11/09/2024 Provider Scan GENERIC SCAN ORDERS CONSULT Judith l Result SCAN * MAMMOGRAM UNILATERAL GENERIC (10/14/2024 12:00 AM CANCELING AND CUTTING CONTROL CLERK) 10/14/2024 us Provider Scan IMG MAMMO ORDERABLES Final Resul t SCAN * MAMMOGRAM BILATERAL MISCELLANEOUS (07/06/2024 12:00 AM CANCELING AND CUTTING CONTROL CLERK) 07/06/2024 us Provider Scan IMG MAMMO ORDERABLES Final Resul t SCAN from Last 3 Months or Most Recently Relevant to Health Maintenance Insurance [facility] Care Teams Grease Machine Worker Relationship Specialty Start Date End Date Sara Dutton PAC [address] [place] [address] PCP - General Physician Car Body Designer 10/15/17 Linus Eldridge MD [address] [place] [address] Consulting Physician Pulmonary Disease 12/07/21 Beatriz Snyder APRN, QUALITY ASSURANCE TESTER [address] [place] [address] Nurse Practitioner Advanced Practice Nurse 03/14/23
--- OUTSIDE RECORDS SUMMARY | 2025-02-02 10:34 | XMS_ITS | Clinical Summary ---
Author Organization [facility] Address [address] [place] [address] Care Team Providers Care Tin Recovery Worker Name Role Phone Sara Dutton PA-C Primary Care Pr ovider Source Comments [facility],non-owned Affiliates and Associated Physician Practices is amultiple site organization consisting of ambulatory clinics and hospital sitesin [place], [place], [place] and [place]. This disclosure is being madepursuant to the Care Everywhere program and may not contain all information available regarding this patient. Last updated 18.[facility] Allergies Active Allergy Reactions Criticality Noted Date Comments Amoxicillin Rash Medium 09/30/2023 Nitrofurantoin Shortness of Breath High 09/06/2015 Sulfacetamide Shortness of Breath High 09/30/2023 Medications * Be aware that medications may not be up to date on this document. Alwaysverify current medications with the patient. fluticasone-sa lmeterol (Advair Diskus) 100-50 MCG/ACT inhaler Inhale 1 (one) puff by mouth 2 times daily 3 Active albuterol HFA (Ventolin HFA) 108 (90 Base) MCG/ACT inhaler Inhale 2 (two) puffs by mouth every 4 hours as needed 3 Active acetaminophen (Tylenol) 325 MG tablet Take 2 (two) tablets by mouth every 6 hours Maximum allowable Acetaminophen amount = 4 Grams (4000 mg) / 24 hours. 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/18/2024 Traumatic pneumohemothorax, initial encounter Hemothorax 03/14/2024 Pneumothorax 03/14/2024 Melanoma of left upper arm 09/30/2023 Encounters Date Type Department Care Team Description 11/09/2024 1:39 PM CDT - 11/09/2024 11:59 PM CDT Hospital Encounter [facility] DIAGNOSTIC RAD OP [address] [place] [address] Mau Grove MD Discharge Disposition: Home or Self Care 11/09/2024 1:15 PM CDT Office Visit [facility] - General Surgery [address] [place] [address] Mau Grove MD Melanoma of left upper arm (Primary Dx) 11/09/2024 Travel 11/06/2024 Orders Only [facility] - General Surgery [address] [place] [address] Mau Grove MD Malignant melanoma of left upper extremity from Last 3 Months Social History Tobacco Use Types Packs/Day Years [...] care, and heating? Not very hard 03/16/2024 [facility] [place] [facility] - Occupational Stress [...] place to sleep or slept in a long term (including now)? No 03/16/2024 Comments No Sex and Gender Information Value Date Recorded Sex Assigned at Not on file Legal Sex Female 7:37 AM CDT Gender Identity Not on file Sexual Orientation Not on file Last Filed Vital Signs Vital Sign Reading Time Taken Comments Blood Pressure 116/89 11/09/2024 1:01 PM CDT Pulse 107 11/09/2024 1:01 PM CDT Temperature 36.8 C (98.3 F) 03/30/2024 2:06 PM CDT Respiratory Rate 17 03/18/2024 7:50 AM CDT Oxygen Saturation 99% 11/09/2024 1:01 PM CDT Inhaled Oxygen Concentration - - Weight 52.2 kg (115 lb) 11/09/2024 1:01 PM CDT Height 162.6 cm (5' 4) 11/09/2024 1:01 PM CDT Body Mass Index 19.74 11/09/2024 1:01 PM CDT Plan of Treatment Upcoming Encounters Date Type Department Care Team (Late st Contact Info) Description 05/17/2025 2:00 PM CDT Office Visit [facility] - General Surgery [address] [place] [phone] Mau Grove MD [address] [facility] [address] [place] [address] Health Maintenance Due Date Last Done Comments PAP SMEAR 1983 HIV SCREENING 1998 HEPATITIS C SCREENING 07/04/2001 DTAP/TDAP/TD VACCINES (1 - Tdap) 2002 HEPATITIS B VACCINE (1 of 3 - 19+ 3-dose series) 2002 COVID-19 VACCINE (1 - season) 2024 DEPRESSION SCREENING 09/02/2024 INFLUENZA VACCINE (Season Ended) 2025 06/05/2023, 06/05/2022, 06/08/2021, Additional history exists MAMMOGRAM 08/13/2025 08/13/2023, 07/03, 07/17/2023 LIPID TESTING 08/07/2028 08/07/2023 ZOSTER VACCINE (1 of 2) 2033 HIB VACCINE Aged Out No longer eligi ble based on patient's age to complete this topic HPV VACCINE Aged Out No longer eligi ble based on patient's age to complete this topic MENINGOCOCCAL (Group B) VACCINE SHARED DECISION-MAKING Aged Out No longer eligible based on patient's age to complete this topic MENINGOCOCCAL GROUPS A/C/Y/W VACCINE Aged Out No longer eligible based on patient's age to complete this topic PNEUMOCOCCAL VACCINE Aged Out No long er eligible based on patient's age to complete this topic Procedures Procedure Name Priority Date/Time Associated Diagnosis Comments XR CHEST 2VW Routine 11/09/2024 1:47 PM CDT Malignant melanoma of left upper extremity from Last 3 Months Results * XR Chest 2Vw (11/09/2024 1:47 PM CDT) Anatomical Region Laterality Modality Chest Digital Radiogra phy 11/10/2024 2:11 AM CDT Impressions 11/10/2024 2:12 AM CDT IMPRESSION: No acute cardiopulmonary abnormalities. > Interpreting Provider: Pio Hobbs MD on 11/10/2024 2:12 AM Narrative 11/10/2024 2:12 AM CDT PROCEDURE: XR CHEST 2VW DATE/TIME OF EXAM: 11/09/2024 1:48 PM CLINICAL INFORMATION: None relevant/not provided if blank. Indication: C43.62: Malignant melanoma of left upper extremity (HCC) Additional History: COMPARISON: 03/30/2024. FINDINGS: Frontal and lateral views of the chest demonstrate a normal sized heart and pulmonary vasculature. No focal consolidation, pleural effusion or pneumothorax. No acute osseous abnormalities. Procedure Note Pio Hobbs MD - 11/10/2024 PROCEDURE: XR CHEST 2VW DATE/TIME OF EXAM: 11/09/2024 1:48 PM CLINICAL INFORMATION: None relevant/not provided if blank. Indication: C43.62: Malignant melanoma of left upper extremity (HCC) Additional History: COMPARISON: 03/30/2024. FINDINGS: Frontal and lateral views of the chest demonstrate a normal sized heartand pulmonary vasculature. No focal consolidation, pleural effusion or pneumothorax. No acute osseous abnormalities. IMPRESSION: No acute cardiopulmonary abnormalities. > Interpreting Provider: Pio Hobbs MD on 11/10/2024 2:12 AM Mau Grove MD DIAGNOSTIC IMAGING ORDERABLES Fi nal Result from Last 3 Months Insurance [facility] Advance Directives * Full Code (Latest Code Status on File) Date Activated Date Inactivated Comments 03/14/2024 6:04 PM 03/18/2024 10:05 AM Care Teams Tin Recovery Worker Relationship Specialty Start Date End Date Sara Dutton PA-C [address] [place] [address] PCP - General Physician Nutritional Yeast Supervisor 09/30/23
--- OUTSIDE RECORDS SUMMARY | 2025-02-02 10:34 | XMS_ITS | Referral Summary ---
Author Organization [facility] Medical Office Building [address] Address [address] [place] [address] Care Team Providers Care [employer] Launch Commander Name Role Phone Sara Dutton Primary Care [...] diaphragm with pneumothorax status post surgery at [facility] March 14. 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 Malignant melanoma [...] on file Legal Sex Female 2:17 PM BUILDING PRINCIPAL Gender Identity Not on file Sexual Orientation Not on file Last Filed Vital Signs Vital Sign Reading Time Taken Comments Blood Pressure 108/74 09/29/2024 1:25 PM BUILDING PRINCIPAL Pulse 97 09/06/2017 5:41 PM BUILDING PRINCIPAL Temperature 36.4 C (97.5 F) 09/06/2017 5:41 PM BUILDING PRINCIPAL Respiratory Rate 16 09/06/2017 5:41 PM BUILDING PRINCIPAL Oxygen Saturation 99% 09/06/2017 5:41 PM BUILDING PRINCIPAL Inhaled Oxygen Concentration - - Weight 51.7 kg (114 lb) 09/29/2024 1:25 PM BUILDING PRINCIPAL Height 162.6 cm (5' 4) 09/29/2024 1:25 PM BUILDING PRINCIPAL Body Mass Index 19.57 09/29/2024 1:25 PM BUILDING PRINCIPAL Plan of Treatment Not on file Procedures Procedure Name Priority Date/Time Associated Diagnosis Comments PAP, REFLEX HPV Routine 09/29/2024 1:51 PM BUILDING PRINCIPAL Well woman exam DIAGNOSTIC MAMMOGRAM BILATERAL W RONY Schedule Routine, Read Routine (OP Routine) 08/13/2023 8:40 AM BUILDING PRINCIPAL Abnormal mammogram from Last 3 Months or Most Recently Relevant to Health Maintenance Results * Pap, reflex HPV (09/29/2024 1:51 PM BUILDING PRINCIPAL) CLINICAL INFORMATION: [facility] Comment:Routine exam LMP [facility] Comment:09-22-24 Previous Pap [facility] Comment:NONE GIVEN Prev. Bx [facility] Comment:NONE GIVEN SOURCE: [facility] Comment:Cervix, Endocervix Pap, specimen adequacy [facility] Comment: Satisfactory for evaluation. Endocervical/transformation zone component present. HPV interp [facility] Comment: Cytology Results: Negative for intraepithelial lesion or malignancy. COMMENTS [facility] Comment: This Pap test has been evaluated with computer assisted technology. Restaurant Manager Zina Whitt [facility] Comment: SXB, CT(ASCP) CT screening location: [facility] [place], [address] [place] [address] [address], [place] [address] Welcome Hostess: JACKIE GARCIA MD, CLIA: [id number] Review system development manager [facility] Comment: CXS, CT(ASCP) CT screening location: [facility] [place], [address] [place] [address] [address], [place] [address] Welcome Hostess: JACKIE GARCIA MD, CLIA: [id number] Comment [facility] [place] [place] Comment: EXPLANATORY NOTE: The Pap is a [...] clinical information. Thin prep 09/29/2024 1:51 PM BUILDING PRINCIPAL 09/30/2024 1:52 AM BUILDING PRINCIPAL us Anatoly Gill MD LAB CYTOLOGY ORDERABLES Fi nal Result [facility] [address], [place] [address] * (ABNORMAL) Diagnostic Mammogram Bilateral W Rony (08/13/2023 8:40 AM BUILDING PRINCIPAL) Anatomical Region Laterality Modality Breast Bilateral Mammography 08/13/2023 11:0 2 AM BUILDING PRINCIPAL Impressions 08/13/2023 11:02 AM BUILDING PRINCIPAL 1. 0.9 cm group of punctate and [...] Malissa Hernandez M.D. Narrative 08/13/2023 11:02 AM BUILDING PRINCIPAL EXAMINATION: BILATERAL DIGITAL DIAGNOSTIC MAMMOGRAM INCLUDING CAD [...] Most Recently Relevant to Health Maintenance Insurance [facility] Care Teams [employer] Launch Commander Relationship Specialty Start Date End Date Sara Dutton PA PCP - General Neurosurgery 09/25/23
--- OUTSIDE RECORDS SUMMARY | 2025-02-02 10:34 | XMS_ITS | Encounter Summary ---
Author Organization [facility] Address [address] 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 Not on file Not on file documented as of this encounter Plan of Treatment Upcoming Encounters Date Type Department Care Team (Late st Contact Info) Description 07/20/2025 1:30 PM KNIT GOODS PRESS HAND [facility] [address] [place] [address] Linus Eldridge MD [address] [place] [address] 12/01/2025 1:00 PM CDT Office Visit [facility] - Internal Medicine [facility] [address] [place] [phone] Sara Dutton, PAC [address] [place] [id number] documented as of this encounter Visit Diagnoses Not on filedocumented in this encounter Additional Health Concerns Infection Onset Date Last Indicated Resolved Time COVID - 19 09/12/2023 09/12/2023 09/22/2023 12:1 6 AM [employer]IT GOODS PR[employer] HAND Assessment Noted Time PHQ-9 Depression Total Score: 0 02/10/20 20 1:00 PM CDT documented as of this encounter Care Teams Loss Prevention Coordinator Relationship Specialty Start Date End Date Sara Dutton, PAC [address] [place] [id number] PCP - General Physician Blanking Press Operator 10/15/17 Linus Eldridge MD [address] [place] [phone] Consulting Physician Pulmonary Disease 12/07/21 Beatriz Snyder APRN, AIRCRAFT ELECTRICAL SYSTEMS SPECIALIST [address] [place] [address] Nurse Practitioner Advanced Practice Nurse 03/14/23 documented as of this encounter
--- OUTSIDE RECORDS SUMMARY | 2025-02-02 10:34 | XMS_ITS | Encounter Summary ---
Author Organization [facility] Address [address] 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 Not on file Not on file documented as of this encounter Plan of Treatment Upcoming Encounters Date Type Department Care Team (Late st Contact Info) Description 07/20/2025 1:30 PM ASSISTIVE TECHNOLOGY SPECIALIST Office Visit [facility] Pulmonology & Sleep Medicine [facility] [address] [place] [address] Linus Eldridge MD [address] [place] [address] 12/01/2025 1:00 PM CDT Office Visit [facility] Internal Medicine - [place] [address] [place] [phone] Sara Dutton, [facility] [address] [place] [address] documented as of this encounter Goals Goal Patient Goal Type Associated Problems Recent Progress Patient-Stated? Author Behavioral Health Behavioral Health On track(2021 9:10 AM CDT) Yes Hiral Gardner LCSW Note: I need to cope better with my anxiety Goal/Objective: Decrease anxiety. Anticipated Time Frame for Goal Completion: 6 months Goal Reviewed with: patient Readiness to change: Ready to change Department associated with goal: [facility] Steps [...] Ready to change Department associated with goal: [facility] Steps [...] 19 09/12/2023 09/12/2023 09/22/2023 12:1 6 AM ASSISTIVE TECHNOLOGY SPECIALIST Assessment Noted Time PHQ-9 Depression Total Score: 4 06/21/20 22 8:00 AM CDT documented as of this encounter Care Teams Field Representative/Health Education Relationship Specialty Start Date End Date Sara Dutton, [facility] [address] [place] [address] PCP - General Physician Neuropsychologist 10/15/17 Linus Eldridge MD [address] [place] [address] Consulting Physician Pulmonary Disease 12/07/21 Beatriz Snyder APRN, INTAKE CLERK [address] [place] [address] Nurse Practitioner Advanced Practice Nurse 03/14/23 documented as of this encounter
--- OUTSIDE RECORDS SUMMARY | 2025-02-02 10:34 | XMS_ITS | Encounter Summary ---
Author Organization [facility] Address [address] [place] [address] Care Team Providers Care Desktop Operator Name Role Phone Sara Dutton PA-C Primary Care Pr ovider Encounter Details Date Type Department Care Team (Late st Contact Info) Description 03/06/2020 Lab Requisition [facility] [address] [place] [address] Unknown, Provider Social History Tobacco Use Types Packs/Day Years Used Date Smoking Tobacco: Never Assessed Comments Unknown Sex and Gender Information Value Date Recorded Sex Assigned at Not on file Legal Sex Female 7:37 AM CDT Gender Identity Not on file Sexual Orientation Not on file documented as of this encounter Plan of Treatment Upcoming Encounters Date Type Department Care Team (Late st Contact Info) Description 05/17/2025 2:00 PM CDT Office Visit [facility] - General Surgery [address] [place] [phone] Mau Grove MD [facility] [address] [place] [address] documented as of this encounter Procedures Procedure Name Priority Date/Time Associated Diagnosis Comments SARS-COV-2 (COVID-19) IN HOUSE Routine 03/05/2020 10:20 AM CDT documented in this encounter Results * SARS-COV-2 (COVID-19) IN HOUSE (03/05/2020 10:20 AM CDT) COVID-19 PCR Not detected Not detected, Invalid 03/07/2020 6:16 AM CDT [facility] Microbiology SPECIMEN FROM NASOPHARYNGEAL STRUCTURE / Unknown Collection / Unknown 03/05/2020 10:20 AM CDT 03/06/2020 1:32 PM CDT Narrative [facility] - 03/07/2020 6:16 AM CDT This Real Time RT-PCR assay was developed and its performance characteristics determined by [facility]. This test has been authorized [...] the authorization is terminated or revoked sooner. us Provider Unknown LAB - MICROBIOLOGY ORDERABLES F inal Result [facility] [address] [place], [place] [address], [facility] [phone] documented in this encounter Visit Diagnoses Not on filedocumented in this encounter Additional Health Concerns Infection Onset Date Last Indicated Resolved Time COVID-19 Under Investigation 03/06/2020 03/05/2020 03/07/2020 6:16 AM CDT documented as of this encounter Care Teams Desktop Operator Relationship Specialty Start Date End Date Sara Dutton PA-C [address] [place] [address] PCP - General Physician Head Worker 09/30/23 documented as of this encounter
== END 2025-02-02 10:13 | disposition home or self-care (01) ==
PROVIDERS: PCP Physician Assistant; Visit Provider Surgery
DX: N64.89 Other specified disorders of breast (principal); Z12.31 Encounter for screening mammogram for malignant neoplasm of breast; R92.8 Other abnormal and inconclusive findings on diagnostic imaging of breast; R92.343 Mammographic extreme density, bilateral breasts; R92.0 Mammographic microcalcification found on diagnostic imaging of breast
CPT/HCPCS: 77049; A9577; C8908

== ENCOUNTER 2025-05-04 12:53 | Outpatient (CLI) | payer BC, SELFPAY ==
--- NOTE | ~2025-05-04 | US_ITS ---
Clinical history:Inconclusive breast MRI from 02/02/2025. Left breast linear non mass-like enhancement upper inner quadrant of the left breast, anterior depth. Exclude a mass in the upper inner quadrant of the left breast. EXAM: Diagnostic left breast ultrasound TECHNIQUE:Multiple static grayscale images and color Doppler images were obtained of the upper inner quadrant of the left breast from the 9 to 12:00 position and in the left retroareolar region. Comparisons:Breast MRI 02/02/2025; ultrasound right breast 10/14/2024; mammograms 10/14/2024, 07/06/2024 and 01/02/2024; breast ultrasound 07/06/2024 FINDINGS: No sonographic evidence for a mass in the upper inner quadrant of the left breast. There are benign cysts in the upper inner quadrant of the left breast. There is a 1.8 x 2.4 x 0.9 cm benign cyst in the left breast at 10:00 position 3 cm from nipple. There is a 1.8 x 1.8 x 0 point centimeter benign cyst in the left breast at 10:00 position 2 cm from nipple. There is a 1.1 x 1.1 x 0.8 cm septated cyst in the left breast at 11:00 position 3 cm from nipple. IMPRESSION: 1. No solid mass identified in the upper inner quadrant of the left breast. The study is incomplete. A diagnostic left breast mammogram is recommended. 2. Benign cysts identified in the upper inner quadrant of the left breast. BI-RADS 0-Incomplete- Need additional imaging evaluation Reviewed, dictated and finalized at location Q.
--- OUTSIDE RECORDS SUMMARY | 2025-05-04 13:04 | XMS_ITS | Clinical Summary ---
Author Organization [facility] Medical Office Building B Address [address] [place] [address] Care Team Providers Care Bounty Hunter Name Role Phone Sara Dutton Primary Care [...] with pneumothorax status post surgery at [facility] March 14. History of pneumothorax 04/26/2024 Overview (04/26/2024): Secondary to endometriosis of the right diaphragm treated by thoracic surgery at [facility] on March 14, 2024. [...] KOBY 08/03/2016 - Asthma Asthma; Comments : OKBY 08/03/2016 - Disorder of thyroid Thyroid dise [...] on file Legal Sex Female 2:17 PM ADOPTION COUNSELOR Gender Identity Not on file Sexual Orientation Not on file Obstetrics History Para Term AB IAB SAB Ectopic Multiple Livin g Live Births 3 2 2 1 1 2 2 Date Outcome GA Total Labor Labor//3rd Weight Sex Type Anes PTL [facility] A1 A5 Name Clin 07/22 14 Term 40w 0d 3.317 kg (7 lb 5 oz) M Vag-Spo nt Living 09/21 17 SAB 01/19 19 Term 3.317 kg (7 lb 5 oz) F Vaginal None Living Complications:None Last Filed Vital Signs Vital Sign Reading Time Taken Comments Blood Pressure 108/74 09/29/2024 1:25 PM ADOPTION COUNSELOR Pulse 97 09/06/2017 5:41 PM ADOPTION COUNSELOR Temperature 36.4 C (97.5 F) 09/06/2017 5:41 PM ADOPTION COUNSELOR Respiratory Rate 16 09/06/2017 5:41 PM ADOPTION COUNSELOR Oxygen Saturation 99% 09/06/2017 5:41 PM ADOPTION COUNSELOR Inhaled Oxygen Concentration - - Weight 51.7 kg (114 lb) 09/29/2024 1:25 PM ADOPTION COUNSELOR Height 162.6 cm (5' 4) 09/29/2024 1:25 PM ADOPTION COUNSELOR Body Mass Index 19.57 09/29/2024 1:25 PM ADOPTION COUNSELOR Plan of Treatment Health Maintenance Due Date Last Done Comments Depression Screening 1983 Hepatitis C Screening 1983 Hepatitis B Screening 2001 HPV Vaccines (1 - 3-dose SCD M series) 2010 Varicella Vaccines (2 of 2 - 13+ 2-dose series) 08/12/2014 07/15/2014 Pneumococcal vaccine <65 (2 of 2 - PCV) 08/09/2016 08/09/2015 Covid-19 Vaccine (5 - 2023-2 5 season) 2024 06/08/2022, 08/02/2021, 11/22/2020, Additional history exists Breast Cancer Screening-Mammogram 08/13/2024 08/13/2023, 08/13/2023, 07/17/2023, Additional history exists Influenza Vaccine (#1) 2025 , 06/05/2022, 06/08/2021, Additional history exists Cervical Cancer Screening 09/29/20252024, 09/25/2023, 08/03/2016, Additional history exists Regular Well Visit/Exam 18-64 09/29/2025 09/29/2024, 09/25/2023 DTaP/Tdap/Td Vaccine (3 - Td or Tdap) 11/20/2028 11/20/2018, 09/02/2012 Procedures Procedure Name Priority Date/Time Associated Diagnosis Comments PAP, REFLEX HPV Routine 09/29/2024 1:51 PM ADOPTION COUNSELOR Well woman exam DIAGNOSTIC MAMMOGRAM BILATERAL W RONY Schedule Routine, Read Routine (OP Routine) 08/13/2023 8:40 AM ADOPTION COUNSELOR Abnormal mammogram from Last 3 Months or Most Recently Relevant to Health Maintenance Results * Pap, reflex HPV (09/29/2024 1:51 PM ADOPTION COUNSELOR) CLINICAL INFORMATION: [facility] [place] Comment:Routine exam LMP [facility] Comment:09-22-24 Previous Pap [facility] [place] Comment:NONE GIVEN Prev. Bx [facility] [place] Comment:NONE GIVEN SOURCE: [facility] [place] [place] Comment:Cervix, Endocervix Pap, specimen adequacy [facility] Comment: Satisfactory for evaluation. Endocervical/transformation zone component present. HPV interp [facility] Comment: Cytology Results: Negative for intraepithelial lesion or malignancy. COMMENTS [facility] [place] [place] Comment: This Pap test has been evaluated with computer assisted technology. Ophthalmic Medical Technologist Zina Whitt In [place] Comment: SXB, CT(ASCP) CT screening location: [place] [address] Property Preservation Specialist: JACKIE GARCIA MD, CLIA: [id number] Review truck driver Clotilde I n [place] Comment: CXS, CT(ASCP) CT screening location: [place] [address] Property Preservation Specialist: JACKIE GARCIA MD, CLIA: [id number] Comment [facility] [place] Comment: EXPLANATORY NOTE: The Pap is [...] clinical information. Thin prep 09/29/2024 1:51 PM ADOPTION COUNSELOR 09/30/2024 1:52 AM ADOPTION COUNSELOR Anatoly Gill MD LAB CYTOLOGY ORDERABLES Fi nal Result [facility] [place] [place] [phone] * (ABNORMAL) Diagnostic Mammogram Bilateral W Rony (08/13/2023 8:40 AM ADOPTION COUNSELOR) Anatomical Region Laterality Modality Breast Bilateral Mammography 08/13/2023 11:0 2 AM ADOPTION COUNSELOR Impressions 08/13/2023 11:02 AM ADOPTION COUNSELOR 1. 0.9 cm group of punctate and [...] Malissa Hernandez M.D. Narrative 08/13/2023 11:02 AM ADOPTION COUNSELOR EXAMINATION: BILATERAL DIGITAL DIAGNOSTIC MAMMOGRAM INCLUDING CAD [...] Most Recently Relevant to Health Maintenance Insurance [employer] [facility] Care Teams Bounty Hunter Relationship Specialty Start Date End Date Sara Dutton PA PCP - General Neurosurgery 09/25/23
--- OUTSIDE RECORDS SUMMARY | 2025-05-04 13:04 | XMS_ITS | Encounter Summary ---
Author Organization [facility] Address [address] [place] [address] Care Team Providers Care Broadcast Maintenance Engineer Name Role Phone Sara Dutton PA-C Primary Care Pr ovider Encounter Details Date Type Department Care Team (Late st Contact Info) Description 03/06/2020 Lab Requisition [facility] [address] [place] [address] Unknown, Provider Social History Tobacco Use Types [...] Description 05/17/2025 2:00 PM CDT Office Visit [facility] - General Surgery [address] [place] [phone] Mau [place] MD [address] [facility] [address] [place] [address] documented as of this encounter Procedures Procedure Name Priority Date/Time Associated Diagnosis Comments SARS-COV-2 (COVID-19) IN HOUSE Routine 03/05/2020 10:20 AM CDT documented in this encounter Results * SARS-COV-2 (COVID-19) IN HOUSE (03/05/2020 10:20 AM CDT) COVID-19 PCR Not detected Not detected, Invalid 03/07/2020 6:16 AM CDT [facility] Microbiology SPECIMEN FROM NASOPHARYNGEAL STRUCTURE / Unknown Collection / Unknown 03/05/2020 10:20 AM CDT 03/06/2020 1:32 PM CDT Narrative [facility] - 03/07/2020 6:16 AM CDT This Real Time RT-PCR assay was developed and its performance characteristics determined by [facility]. This test has been authorized [...] LAB - MICROBIOLOGY ORDERABLES F inal Result [facility] [address] [place], [place] [address], [facility] [phone] documented in this encounter Visit Diagnoses Not on filedocumented in this encounter Additional Health Concerns Infection Onset Date Last Indicated Resolved Time COVID-19 Under Investigation 03/06/2020 03/05/2020 03/07/2020 6:16 AM CDT documented as of this encounter Care Teams Broadcast Maintenance Engineer Relationship Specialty Start Date End Date Sara Dutton PA-C [address] [place] [address] PCP - General Physician Senior Games Technician 09/30/23 documented as of this encounter
--- OUTSIDE RECORDS SUMMARY | 2025-05-04 13:05 | XMS_ITS | Encounter Summary ---
Author Organization [facility] Address [address] [place] [address] Phone Care Team Providers Care Field Sales Trainer Name Role Phone Sara Dutton Primary Care Pro vider Linus Eldridge MD Unavailable Beatriz Snyder APRN, GUT SORTER Unavailable Reason for Visit * Reason Comments Medication Refill Encounter Details Date Type Department Care Team (Late st Contact Info) Description 06/20/2023 Refill [facility] - Internal Medicine - [place] [address] [place] [address] Sara Dutton, [facility] [address] [place] [address] Medication Refill Social History Tobacco Use Types [...] 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 Not on file Not on file documented as of this encounter Plan of Treatment Upcoming Encounters Date Type Department Care Team (Late st Contact Info) Description 07/20/2025 1:30 PM PETAL CUTTER Office Visit [facility] Pulmonology & Sleep Medicine [facility] [address] [place] [address] Linus Eldridge MD [address] [place] [address] 12/01/2025 1:00 PM CDT Office Visit [facility] Primary Care - [place] [address] [place] [phone] Sara Dutton PAC [address] [place], [place] [phone] documented as of this encounter Goals Goal Patient Goal Type Associated Problems Recent Progress Patient-Stated? Author Behavioral Health Behavioral Health On track(2021 9:10 AM CDT) Yes Hiral Gardner LCSW Note: I need to cope better with my anxiety Goal/Objective: Decrease anxiety. Anticipated Time Frame for Goal Completion: 6 months Goal Reviewed with: patient Readiness to change: Ready to change Department associated with goal: [facility] Steps to achieve goal: [...] Ready to change Department associated with goal: [facility] Steps to achieve goal: [...] 19 09/12/2023 09/12/2023 09/22/2023 12:1 6 AM PETAL CUTTER Assessment Noted Time PHQ-9 Depression Total Score: 4 06/21/20 22 8:00 AM CDT documented as of this encounter Care Teams Field Sales Trainer Relationship Specialty Start Date End Date Sara Dutton PAC PCP - General Physician Police Chief Deputy 10/15/17 Linus Eldridge MD [address] [place] [phone] Consulting Physician Pulmonary Disease 12/07/21 Beatriz Snyder APRN, GUT SORTER [address] [place] [address] Nurse Practitioner Advanced Practice Nurse 03/14/23 documented as of this encounter
--- OUTSIDE RECORDS SUMMARY | 2025-05-04 13:05 | XMS_ITS | Clinical Summary ---
Author Organization [facility] [employer] Address [address] [facility] [place] [address] Care Team Providers Care Fiberglass Technician Name Role Phone Sara Dutton PA-C Primary Care Pr ovider Source Comments [facility] [employer],non-owned Affiliates and Associated Physician Practices is amultiple site organization consisting of ambulatory clinics and hospital sitesin [place], [place], [place] and [place]. This disclosure is being madepursuant to the Care Everywhere program and may not contain all information available regarding this patient. Last updated 18.[facility] [employer] Allergies Active Allergy Reactions Criticality Noted Date [...] care, and heating? Not very hard 03/16/2024 [facility] [place] of Occupat ional Health - Occupational Stress [...] in a penitentiary (including now)? No 03/16/2024 Comments No Sex [...] Description 05/17/2025 2:00 PM CDT Office Visit [facility] - General Surgery [address] [place] [address] Mau [place] MD [address] [facility] [address] [place] [address] Health Maintenance Due Date Last Done Comments HIV SCREENING 1998 HEPATITIS C SCREENING 07/04/2001 DTAP/TDAP/TD VACCINES (1 - Tdap) 2002 HEPATITIS B VACCINE (1 of 3 - 19+ 3-dose series) 2002 PAP SMEAR 2004 HPV VACCINE (1 - 3-dose SCDM series) 2010 COVID-19 VACCINE ( season) 2024 DEPRESSION SCREENING 09/02/2024 INFLUENZA VACCINE (#1) 2025 , 06/05/2022, 06/08/2021, Additional history exists MAMMOGRAM 08/13/2025 [...] on patient's age to complete this topic Insurance [facility] Address: [id number] [place] [address] Advance Directives * Full Code (Latest Code Status on File) Date Activated Date Inactivated Comments 03/14/2024 6:04 PM 03/18/2024 10:05 AM Care Teams Fiberglass Technician Relationship Specialty Start Date End Date Sara Dutton PA-C [address] [place] [address] PCP - General Physician Ceramic Mold Designer 09/30/23
--- OUTSIDE RECORDS SUMMARY | 2025-05-04 13:05 | XMS_ITS | Encounter Summary ---
Author Organization [facility] Address [address] [place] [address] Phone Care Team Providers Care Design Lead Name Role Phone Sara Dutton Primary Care Pro vider Linus Eldridge MD Unavailable Beatriz Snyder APRN, PENSION EXAMINER Unavailable Reason for Visit * Reason Onset Date Comments Medication Refill Medication Refill 08/24/2020 90 day supply requested Encounter Details Date Type Department Care Team (Late st Contact Info) Description 08/19/2020 Refill [facility] Medical Group - Family 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 No / Unsure 08/18/2020 2:47 PM VETERINARY SURGERY TECHNOLOGIST documented as of this encounter Miscellaneous Notes * Telephone Encounter - Yelitza Jacques RN - 08/24/2020 7:41 AM VETERINARY SURGERY TECHNOLOGIST Received: [x]FAX []TELEPHONE CALL []MYCHART from: [x]PHARMACY [...] message to provider []Verified medication with pharmacy RINARY SURGERY TECHNOLOGIST * Telephone Encounter - Suzan Thompson RN [...] Past Office Visits Recent Outpatient Visits Today [facility] - Family [facility] - [place] Dutton, Sara Shields, ANDREA 6 months ago Well adult exam [facility] - Family Medicine - Sara Restrepo PAC 1 year ago Gastroesophageal reflux disease, esophagitis presence not specified [facility] - [facility] - Sara Restrepo PAC 2 years ago Gastroesophageal reflux disease, esophagitis presence not specified [facility] - Sara Restrepo PAC 2 years ago Sore throat [facility] - [facility] - Sara Restrepo PAC Upcoming Appointments Future Appointments In 3 [address] [facility] PULMONOLOGY, [facility] ARTS SUPERVISOR - Recent and Past Visits Recent Visits Date Type Provider Dept 02/10/20 Office Visit Sara Dutton PAC [facility] Showing recent visits within past 460 days [...] authorizing provider and meeting all other requirements RINARY SURGERY TECHNOLOGIST documented in this encounter Plan of Treatment Upcoming Encounters Date Type Department Care Team (Late st Contact Info) Description 07/20/2025 1:30 PM VETERINARY SURGERY TECHNOLOGIST Office Visit [facility] - Pulmonology & Sleep Medicine - [place] [address] [place] [address] Linus Eldridge MD [address] [place] [address] 12/01/2025 1:00 PM CDT Office Visit [facility] - Primary Care - [place] [address] [place] [phone] Sara Dutton PAC [address] [place] [address] documented as of this encounter Visit Diagnoses Not on filedocumented in this encounter Additional Health Concerns Infection Onset Date Last Indicated Resolved Time COVID - 19 09/12/2023 09/12/2023 09/22/2023 12:1 6 AM VETERINARY SURGERY TECHNOLOGIST Assessment Noted Time PHQ-9 Depression Total Score: 0 02/10/20 20 1:00 PM CDT documented as of this encounter Care Teams Design Lead Relationship Specialty Start Date End Date Sara Dutton PAC PCP - General Physician Embedded Systems Developer 10/15/17 Linus Eldridge MD [address] [place] [address] Consulting Physician Pulmonary Disease 12/07/21 Beatriz Snyder APRN, PENSION EXAMINER [address] [place] [address] Nurse Practitioner Advanced Practice Nurse 03/14/23 documented as of this encounter
--- OUTSIDE RECORDS SUMMARY | 2025-05-04 13:05 | XMS_ITS | Clinical Summary ---
Author Organization [facility] Address [address] [address] Phone Care Team Providers Care Wetlands Technician Name Role Phone Sara Dutton PAC Primary Care Pro vider Linus Eldridge MD Unavailable Beatriz Snyder MANAGER PLANT, LIFE SKILLS COORDINATOR VOLUNTEER Unavailable Allergies Active Allergy Reactions Criticality Noted [...] PUFF BY MOUTH TWICE DAILY 60 Each 5 Active Active Problems Problem Noted Date Diagnosed [...] Encounters Date Type Department Care Team Description 02/07/2025 Refill [facility] - Internal Medicine [facility] [address] [place] [address] Sara Dutton, [facility] Medication Refill from Last 3 Months Immunizations Immunization Administration [...] Recorded Total Score - Questions 1-9 0 09/2024 Education Answer Date Recorded What is [...] 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 Not on file Not [...] st Contact Info) Description 07/20/2025 1:30 PM CONTRACT SERVICEMAN Office Visit [facility] - Pulmonology & Sleep Medicine - [place] [address] [place] [phone] Linus Eldridge MD [address] [place] [address] 12/01/2025 1:00 PM CDT Office Visit [facility] - Primary Care - [place] [address] [place] [phone] Sara Dutton, ANDREA [address] [place] [address] Health Maintenance Due Date Last Done Comments Hepatitis B Immunization (1 of 3 - 19+ 3-dose series) 2002 Human Papillomavirus (HPV) Immunization (1 - Risk 3-dose SCDM series) 2010 Pneumococcal Immunization Combined (2 of 2 - PCV) 08/09/2016 08/09/2015 Pap Smear 08/02/2019 08/02/2016 Influenza Immunization (#1) 05/03/202506/02, 06/05/2023, 06/05/2022, Additional history exists SARS-COV-2 Immunization ( season) 2025 06/08/2022, 08/02/2021, 11/22/2020, Additional history exists Mammogram 07/06/2025 07/06/2024, 0510/2023, 08/13/2023, Additional history exists Cervical Cancer Screening (CCS) 09/25/2028 HPV/Cotest 09/25/2028 09/25/2023 Td Immunization Every 10 Years (Adults With 1 Tdap) 11/20/2028 11/20/2018, 09/02/2012 Respiratory Syncytial Virus (RSV) Immunization (Adult) (1 - 1-dose 75+ series) 2058 Discussion re Starting/Frequency of Mammograms Completed 10/14/2024, 07/06/2024, 01/02/2024, Additional history exists Hepatitis C Virus (HCV) Screening Completed 12/03/2024 Meningococcal Immunization (ACWY) Aged Out No longer eligible based on patient's age to complete this topic Rotavirus Immunization Aged Out No lo nger eligible based on patient's age to complete this topic Goals Goal Patient Goal Type Associated Problems Recent Progress Patient-Stated? Author Behavioral Health Behavioral Health On track(2021 9:10 AM CDT) Yes Hiral Garnder LCSW Note: I need to cope better with my anxiety Goal/Objective: Decrease anxiety. Anticipated Time Frame for Goal Completion: 6 months Goal Reviewed with: patient Readiness to change: Ready to change Department associated with goal: [facility] Steps to achieve [...] Ready to change Department associated with goal: [facility] Steps to achieve [...] Procedure Name Priority Date/Time Associated Diagnosis Comments MRI CHEST GENERIC 02/02/2025 12: 00 AM CDT HEPATITIS C ANTIBODY Routine 12/03/2024 8:00 AM CDT Need for hepatitis C screening test MAMMOGRAM UNILATERAL GENERIC 10/14/2024 12:00 AM CONTRACT SERVICEMAN MAMMOGRAM BILATERAL GENERIC 07/06/2024 12:00 AM CONTRACT SERVICEMAN from Last 3 Months or Most Recently Relevant to Health Maintenance Results * MRI CHEST GENERIC (02/02/2025 12:00 AM CDT) 02/02/2025 us Provider Scan IMG MR ORDERABLES Final Result SCAN * HEPATITIS C ANTIBODY (12/03/2024 8:00 AM CDT) hepatitis C antibody 0.21 <1 S/CO 12/04/2024 3:34 PM [facility]T [facility] Comment: Signal/Cutoff ratio < 0.79 is Nondetected Signal/Cutoff ratio 0.80-0.99 is Grayzone Signal/Cutoff ratio > 0.99 is Detected Supplemental assays are recommended if signal/cutoff ratio is >/=1.00. Signal/cutoff ratio result >/= 5.00 is 97% predictive of positivity for recombinant immunoblot assay (RIBA) and will be reported to the [place] Department of Public Health as required. Blood Venipuncture / Unknown 12/03/2024 8:00 AM CDT 12/03/2024 8:00 AM CDT Sara Dutton PAC CHEMISTRY ORDERAB LES Final Result Performing Organization Address [facility] Co de Phone Number [facility] [address] [place] [address], [place] * MAMMOGRAM UNILATERAL GENERIC (10/14/2024 12:00 AM CONTRACT SERVICEMAN) 10/14/2024 us Provider Scan IMG MAMMO ORDERABLES Final Resul t SCAN * MAMMOGRAM BILATERAL MISCELLANEOUS (07/06/2024 12:00 AM CONTRACT SERVICEMAN) 07/06/2024 us Provider Scan IMG MAMMO ORDERABLES Final Resul t SCAN from Last 3 Months or Most Recently Relevant to Health Maintenance Insurance [facility] Care Teams Wetlands Technician Relationship Specialty Start Date End Date Sara Dutton, ANDREA PCP - General Physician Staff Design Engineer 10/15/17 Linus Eldridge MD [address] [place] [address] Consulting Physician Pulmonary Disease 12/07/21 Beatriz Snyder APRN, LIFE SKILLS COORDINATOR VOLUNTEER [address] [place] [address] Nurse Practitioner Advanced Practice Nurse 03/14/23
--- OUTSIDE RECORDS SUMMARY | 2025-05-04 13:05 | XMS_ITS | Encounter Summary ---
Author Organization [facility] Address [address] 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 Primary Care - [place] [address] [place] [phone] Saar Dutton PAC [address] [place] [address] documented as of this encounter Visit Diagnoses Not on filedocumented in this encounter Additional Health Concerns Infection Onset Date Last Indicated Resolved Time COVID - 19 09/12/2023 09/12/2023 09/22/2023 12:1 6 AM FIELD SECRETARY Assessment Noted Time PHQ-9 Depression Total Score: 0 02/10/20 20 1:00 PM CDT documented as of this encounter Care Teams Network Support Technician Relationship Specialty Start Date End Date Sara Dutton PAC PCP - General Physician Decision Unit Rn 10/15/17 Linus Eldridge MD [address] [place] [phone] Consulting Physician Pulmonary Disease 12/07/21 Beatriz Snyder APRN, EFFICIENCY ANALYST [address] [place] [address] Nurse Practitioner Advanced Practice Nurse 03/14/23 documented as of this encounter
== END 2025-05-04 12:54 | disposition home or self-care (01) ==
LOC: ANHFOHIMG 12:55
PROVIDERS: PCP Physician Assistant; Visit Provider Surgery
DX: R92.2 Inconclusive mammogram (principal); R92.0 Mammographic microcalcification found on diagnostic imaging of breast; R92.8 Other abnormal and inconclusive findings on diagnostic imaging of breast
CPT/HCPCS: 76642

== ENCOUNTER 2025-06-18 12:57 | Outpatient (CLI) | payer BC, SELFPAY ==
--- NOTE | ~2025-06-18 | MMUS_ITS ---
EXAMINATION: US breast BI complete, MM diagnostic kassandra BI w elinor HISTORY: Six-month follow-up TECHNIQUE: Diagnostic images of both breasts]] were performed using full field digital mammography. 3-D tomosynthesis were also obtained and synthetic 2-D images were generated. CAD analysis was submitted and interpreted. High- resolution bilateral breast ultrasound was performed.] ] COMPARISON: Left breast ultrasound 05/04/2025; breast MRI 02/02/2025, diagnostic right breast mammogram and ultrasound 10/14/2024; mammogram 07/06/2024 BREAST PARENCHYMAL COMPOSITION: The breasts are extremely dense which lowers the sensitivity of mammography. FINDINGS: MAMMOGRAPHIC FINDINGS: No suspicious calcifications or architectural distortion either breast. Bilateral breast masses of all 4 quadrants of both breasts. ULTRASOUND: There are several benign cysts in both breasts. There is a 8 x 5 mm hypoechoic cyst versus solid mass in the right breast 11:00 position 1 cm from nipple. The finding is wider than tall. Margins are well- circumscribed. No internal color Doppler flow. No posterior acoustic shadowing. There is a 1.2 x 1.3 x 0.8 cm hypoechoic cyst versus solid mass in the left breast at the 12:00 position 2 cm from the nipple anterior depth. The finding is wider than tall. Margins are well-circumscribed. No internal color flow. No posterior acoustic shadowing. There is a 2.0 x 2.6 x 0 9 cm hypoechoic cyst versus solid mass in the left breast at the 12:00 position 2 cm from nipple. The finding is wider than tall. Margins are well-circumscribed. No internal color flow. No posterior acoustic shadowing. There is a 7 x 7 x 6 mm wider than tall hypoechoic mass in the left breast 3:00 position 5 cm from the nipple. Margins are well-circumscribed. No internal color flow. No posterior acoustic shadowing. The finding was previously biopsied and is stable and benign. There is a 10 x 10 x 5 mm hypoechoic mass in the left breast at the 5:00 position. Findings wider than tall. No internal color flow. No posterior acoustic shadowing. ]] IMPRESSION/RECOMMENDATION: 1. Probably benign findings in both breasts. A bilateral diagnostic mammogram and a bilateral diagnostic breast ultrasound in 6 months is recommended BI-RADS 3-Probably benign-Short interval follow-up suggested. Reviewed, dictated and finalized at location Q. IMPRESSION/RECOMMENDATION: 1. Probably benign findings in both breasts. A bilateral diagnostic mammogram a nd a bilateral diagnostic breast ultrasound in 6 months is recommended BI-RADS 3-Probably benign-Short interval follow-up suggested. IMPRESSION/RECOMMENDATION: 1. Probably benign findings in both breasts. A bilateral diagnostic mammogram a nd a bilateral diagnostic breast ultrasound in 6 months is recommended BI-RADS 3-Probably benign-Short interval follow-up suggested.
--- OUTSIDE RECORDS SUMMARY | 2025-06-18 13:08 | XMS_ITS | Clinical Summary ---
Author Organization [facility] Address [address] [address] Phone Care Team Providers Care Human Relations Professor Name Role Phone Sara Dutton PAC Primary Care Pro vider Linus Eldridge MD Unavailable Beatriz Snyder DEPARTMENT CLERK, BACKBREAKER Unavailable Allergies Active Allergy Reactions Criticality Noted [...] Overview (08/10/2015): With high HDL > 140 Immunizations Immunization Administration Dates Next Due Influenza Vaccine 05/18/2017, 6,06/02/2015,05/25 Influenza Vaccine greater than 3 yrs 06/26/2016, 06/02/2015,06/02/2013 01/31/2017 Influenza Vaccine, MDCK,quadrivalent, pres free 06/05/2022,05/06/2019 Influenza Vaccine, Quadrivalent, PF 12/2022,06/08/2021,05/30/2020,08/06,05/19/2017 Influenza, Seasonal, Injecta ble, Undefined 06/02/2013,06/29/2012 Influenza,Split [...] 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 Not on file Not [...] st Contact Info) Description 07/20/2025 1:30 PM MATERIALS CLERK Office Visit [facility] - Pulmonology & Sleep Medicine [facility] [address] [place] [phone] Linus Eldridge MD [address] [place] [phone] 12/01/2025 1:00 PM CDT Office Visit [facility] - Primary Care - [place] [address] [place] [address] Sara Dutton, ANDREA [address] [place] [address] Health Maintenance Due Date Last Done Comments [...] 11/22/2020, Additional history exists Mammogram 07/06/2025 07/06/2024, 10/2023, 08/13/2023, Additional history exists Cervical Cancer [...] Ready to change Department associated with goal: [facility] Steps to achieve goal: [...] Ready to change Department associated with goal: [facility] Steps to achieve goal: [...] Procedure Name Priority Date/Time Associated Diagnosis Comments US - CHEST 05/04/2025 12:00 AM CDT HEPATITIS C ANTIBODY Routine 12/03/2024 8:00 AM CDT Need for hepatitis C screening test MAMMOGRAM UNILATERAL GENERIC 10/14/2024 12:00 AM MATERIALS CLERK MAMMOGRAM BILATERAL GENERIC 07/06/2024 12:00 AM MATERIALS CLERK from Last 3 Months or Most Recently Relevant to Health Maintenance Results * US - CHEST (05/04/2025 12:00 AM CDT) 05/04/2025 us Provider Scan IMG US ORDERABLES Final Result Performing Organization Address City/State/[facility] Co de Phone Number SCAN * HEPATITIS C ANTIBODY (12/03/2024 8:00 AM CDT) hepatitis C antibody 0.21 <1 S/CO 12/04/2024 3:34 PM CDT [facility] Comment: Signal/Cutoff ratio < 0.79 is Nondetected Signal/Cutoff ratio 0.80-0.99 is Grayzone Signal/Cutoff ratio > 0.99 is Detected Supplemental assays are recommended if signal/cutoff ratio is >/=1.00. Signal/cutoff ratio result >/= 5.00 is 97% predictive of positivity for recombinant immunoblot assay (RIBA) and will be reported to the [place] Department of Public [facility] as required. Blood Venipuncture / Unknown 12/03/2024 8:00 AM CDT 12/03/2024 8:00 AM CDT Sara Dutton PAC CHEMISTRY ORDERAB LES Final Result Performing Organization Address [facility] Co de Phone Number [facility] [address] [place] [address], [place] * MAMMOGRAM UNILATERAL GENERIC (10/14/2024 12:00 AM MATERIALS CLERK) 10/14/2024 us Provider Scan IMG MAMMO ORDERABLES Final Resul t Performing Organization Address City/[facility] Co de Phone Number SCAN * MAMMOGRAM BILATERAL MISCELLANEOUS (07/06/2024 12:00 AM MATERIALS CLERK) 07/06/2024 us Provider Scan IMG MAMMO ORDERABLES Final Resul t Performing Organization Address City/[facility] Co de Phone Number SCAN from Last 3 Months or Most Recently Relevant to Health Maintenance Insurance [facility] [[email or web address]] Care Teams Human Relations Professor Relationship Specialty Start Date End Date Sara Dutton PAC PCP - General Physician Supervisor Liquid Yeast 10/15/17 Linus Eldridge MD [address] [place] [phone] Consulting Physician Pulmonary Disease 12/07/21 Beatriz Snyder APRN, BACKBREAKER [address] [place] [address] Nurse Practitioner Advanced Practice Nurse 03/14/23
--- OUTSIDE RECORDS SUMMARY | 2025-06-18 13:08 | XMS_ITS | Encounter Summary ---
Author Organization [facility] Address [address] [place] [address] Phone Care Team Providers Care Garden Worker Name Role Phone Sara Dutton Primary Care Pro vider Linus Eldridge MD Unavailable Beatriz Snyder APRN, CONTINUITY DIRECTOR Unavailable Reason for Visit * Reason Onset Date Comments Medication Refill Medication Refill 08/24/2020 90 day supply requested Encounter Details Date Type Department Care Team (Late st Contact Info) Description 08/19/2020 Refill [facility] - Family [facility] [address] [place] [phone] Sara Dutton, [facility] [address] [place] [address] Medication Refill; Medication Refill (90 day supply [...] 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 No / Unsure 08/18/2020 2:47 PM RN CORRECTIONS documented as of this encounter Miscellaneous Notes * Telephone Encounter - Yelitza Jacques RN - 08/24/2020 7:41 AM RN CORRECTIONS Received: [x]FAX []TELEPHONE CALL []MYCHART from: [x]PHARMACY [...] message to provider []Verified medication with pharmacy CORRECTIONS * Telephone Encounter - Suzan Thompson RN [...] Visits Today [facility] - Leandro Dutton, Sara Shields, ANDREA 6 months ago Well adult exam [facility] - Family Medicine - Sara Restrepo PAC 1 year ago Gastroesophageal reflux disease, esophagitis presence not specified [facility] - Sara Restrepo PAC 2 years ago Gastroesophageal reflux disease, esophagitis presence not specified [facility] - Sara Restrepo PAC 2 years ago Sore throat [facility] - Sara Restrepo PAC Upcoming Appointments Future Appointments In 3 months Linus Eldridge MD [facility] PULMONOLOGY, [facility] CAR HOPPER - Recent and Past Visits Recent Visits [...] authorizing provider and meeting all other requirements CORRECTIONS documented in this encounter Plan of Treatment Upcoming Encounters Date Type Department Care Team (Late st Contact Info) Description 07/20/2025 1:30 PM RN CORRECTIONS Office Visit [facility] - Pulmonology & Sleep Medicine - [place] [address] [place] [address] Linus Eldridge MD [address] [place] [address] 12/01/2025 1:00 PM CDT Office Visit [facility] - Primary Care - [place] [address] [place] [phone] Sara Dutton PAC [address] [place] [address] documented as of this encounter Visit Diagnoses Not on filedocumented in this encounter Additional Health Concerns Infection Onset Date Last Indicated Resolved Time COVID - 19 09/12/2023 09/12/2023 09/22/2023 12:1 6 AM RN CORRECTIONS Assessment Noted Time PHQ-9 Depression Total Score: 0 02/10/20 20 1:00 PM CDT documented as of this encounter Care Teams Garden Worker Relationship Specialty Start Date End Date Sara Dutton PAC PCP - General Physician Pipeline Inspector 10/15/17 iLnus Eldridge MD [address] [place] [address] Consulting Physician Pulmonary Disease 12/07/21 Beatriz Snyder APRN, CONTINUITY DIRECTOR [address] [place] [address] Nurse Practitioner Advanced Practice Nurse 03/14/23 documented as of this encounter
--- OUTSIDE RECORDS SUMMARY | 2025-06-18 13:08 | XMS_ITS | Encounter Summary ---
Author Organization [facility] Address [address] [place] [address] Phone Care Team Providers Care Administration Internship Name Role Phone Sara Dutton Primary Care Pro vider Linus Eldridge MD Unavailable Beatriz Snyder APRN, TURRET PRESS OPERATOR Unavailable Reason for Visit * Reason Comments Medication Refill Encounter Details Date Type Department Care Team (Late st Contact Info) Description 06/20/2023 Refill [facility] - Internal Medicine - [place] [address] [place] [address] Sara Dutton, [facility] [address] [place] [address] Medication Refill Social History Tobacco [...] 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 on file Not on file documented as of this encounter Plan of Treatment Upcoming Encounters Date Type Department Care Team (Late st Contact Info) Description 07/20/2025 1:30 PM TOP STITCHER Office Visit [facility] Pulmonology & Sleep Medicine [facility] [address] [place] [address] Linus Eldridge MD [address] [place] [address] 12/01/2025 1:00 PM CDT Office Visit [facility] Primary Care - [place] [address] [place] [phone] Sara Dutton PAC [address] [place], [place] [phone] documented as of this encounter Goals Goal Patient Goal Type Associated Problems Recent Progress Patient-Stated? Author Behavioral Health Behavioral Health On track(2021 9:10 AM CDT) Yes Hiral Gardner LCSW Note: I need to cope better with my anxiety Goal/Objective: Decrease anxiety. Anticipated Time Frame for Goal Completion: 6 months Goal Reviewed with: patient Readiness to change: Ready to change Department associated with goal: [facility] Steps [...] Ready to change Department associated with goal: [facility] Steps [...] 19 09/12/2023 09/12/2023 09/22/2023 12:1 6 AM TOP STITCHER Assessment Noted Time PHQ-9 Depression Total Score: 4 06/21/20 22 8:00 AM CDT documented as of this encounter Care Teams Administration Internship Relationship Specialty Start Date End Date Sara Dutton PAC PCP - General Physician Hand Cell Tuber 10/15/17 Linus Eldridge MD [address] [place] [phone] Consulting Physician Pulmonary Disease 12/07/21 Beatriz Snyder APRN, TURRET PRESS OPERATOR [address] [place] [address] Nurse Practitioner Advanced Practice Nurse 03/14/23 documented as of this encounter
--- OUTSIDE RECORDS SUMMARY | 2025-06-18 13:08 | XMS_ITS | Clinical Summary ---
Author Organization [facility] Address [address] [place] [address] Care Team Providers Care Paraprofessional Aide Name Role Phone Sara Dutton PA-C Primary Care Pr ovider Source Comments [facility],non-owned Affiliates and Associated Physician Practices is amultiple site organization consisting of ambulatory clinics and hospital sitesin [place], [place], [place] and [place]. This disclosure is being madepursuant to the Care Everywhere program and may not contain all information available regarding this patient. 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 Traumatic pneumohemothorax, initial encounter Hemothorax 03/14/2024 Pneumothorax 03/14/2024 Melanoma of left upper arm 09/30/2023 Encounters Date Type Department Care Team Description 05/17/2025 2:39 PM CDT - 05/17/2025 11:59 PM CDT Hospital Encounter [facility] DIAGNOSTIC RAD OP [address] [place] [address] Mau Grove MD Discharge Disposition: Home or Self Care 05/17/2025 2:00 PM CDT Office Visit [facility] - General Surgery [address] [place] [address] Mau Grove MD Melanoma of left upper arm (HCC) (Primary Dx) 05/17/2025 Travel 05/14/2025 Orders Only [facility] - General Surgery [address] [place] [address] Mau Grove MD Malignant melanoma of left upper extremity (HCC) from Last 3 Months Social History Tobacco Use Types Packs/Day Years Used Date Smoking Tobacco: Never Smokeless Tobacco: Never Tobacco Cessation:Counseling Given: No Alcohol Use Standard Drinks/Week Comments Never 0 [...] care, and heating? Not very hard 03/16/2024 [facility] - Occupational Stress [...] place to sleep or slept in a care home (including now)? No 03/16/2024 Comments No Sex and Gender Information Value Date Recorded Sex Assigned at Not on file Legal Sex Female 7:37 AM CDT Gender Identity Not on file Sexual Orientation Not on file Last Filed Vital Signs Vital Sign Reading Time Taken Comments Blood Pressure 118/83 05/17/2025 2:07 PM CDT Pulse 90 05/17/2025 2:07 PM CDT Temperature 36.8 C (98.3 F) 05/17/2025 2:07 PM CDT Respiratory Rate 17 03/18/2024 7:50 AM CDT Oxygen Saturation 99% 05/17/2025 2:07 PM CDT Inhaled Oxygen Concentration - - Weight 52.2 kg (115 lb) 05/17/2025 2:07 PM CDT Height 162.6 cm (5' 4) 05/17/2025 2:07 PM CDT Body Mass Index 19.74 05/17/2025 2:07 PM CDT Plan of Treatment Upcoming Encounters Date Type Department Care Team (Late st Contact Info) Description 11/15/2025 1:45 PM CDT Office Visit [facility] - General Surgery [address] [place] [address] Mau Grove MD [address] [facility] [facility] [address] [place] [address] Health Maintenance Due Date Last Done Comments HIV SCREENING 1998 DTAP/TDAP/TD VACCINES (1 - Tdap) 2002 HEPATITIS B VACCINE (1 of 3 - 19+ 3-dose series) 2002 PAP SMEAR 2004 HPV VACCINE (1 - 3-dose SCDM series) 2010 DEPRESSION SCREENING 09/02/2024 COVID-19 VACCINE ( season) 2025 06/08/2022, 08/02/2021, 11/22/2020, Additional history exists INFLUENZA VACCINE (#1) 2025 , 06/05/2023, 06/08/2022, Additional history exists MAMMOGRAM 08/13/2025 08/13/2023, 07/03, 07/17/2023 LIPID TESTING 08/07/2028 08/07/2023 ZOSTER VACCINE (1 of 2) 2033 HEPATITIS C SCREENING Completed 12/03/2024 HIB VACCINE Aged Out No longer eligi [...] Associated Diagnosis Comments XR CHEST 2VW Routine 05/17/2025 2:45 PM CDT Malignant melanoma of left upper extremity (HCC) from Last 3 Months Results * XR Chest 2Vw (05/17/2025 2:45 PM CDT) Anatomical Region Laterality Modality Chest Digital Radiogra phy 05/17/2025 3:30 PM CDT Impressions 05/17/2025 3:30 PM CDT IMPRESSION: No acute cardiopulmonary abnormalities. > Interpreting Provider: Marcus Lopez MD on 05/17/2025 3:30 PM Narrative 05/17/2025 3:30 PM CDT PROCEDURE: XR CHEST 2VW DATE/TIME OF EXAM: 05/17/2025 2:45 PM CLINICAL INFORMATION: None relevant/not provided if blank. Indication: C43.62: Malignant melanoma of left upper extremity (HCC) Additional History: COMPARISON: 11/09/2024 FINDINGS: Frontal and lateral views of the chest demonstrate a normal sized heart and pulmonary vasculature. Hyperinflated lungs. No focal consolidation, pleural effusion or pneumothorax. No acute osseous abnormalities. Procedure Note Marcus Lopez MD - 05/17/2025 PROCEDURE: XR CHEST 2VW DATE/TIME OF EXAM: 05/17/2025 2:45 PM CLINICAL INFORMATION: None relevant/not provided if blank. Indication: C43.62: Malignant melanoma of left upper extremity (HCC) Additional History: COMPARISON: 11/09/2024 FINDINGS: Frontal and lateral views of the chest demonstrate a normal sized heartand pulmonary vasculature. Hyperinflated lungs. No focal consolidation,pleural effusion or pneumothorax. No acute osseous abnormalities. IMPRESSION: No acute cardiopulmonary abnormalities. > Interpreting Provider: Marcus Lopez MD on 05/17/2025 3:30 PM Mau Grove MD DIAGNOSTIC IMAGING ORDERABLES Fi nal Result from Last 3 Months Insurance ANTHEM Advance Directives * Full Code (Latest Code Status on File) Date Activated Date Inactivated Comments 03/14/2024 6:04 PM 03/18/2024 10:05 AM Care Teams Paraprofessional Aide Relationship Specialty Start Date End Date Sara Dutton PA-C [address] [place] [address] PCP - General Physician Solar Electric Practitioner 09/30/23
--- OUTSIDE RECORDS SUMMARY | 2025-06-18 13:08 | XMS_ITS | Encounter Summary ---
Author Organization [facility] Address [address] [place] [address] Care Team Providers Care Dehydrogenation Operator Name Role Phone Sara Dutton PA-C Primary Care Pr ovider Encounter Details Date Type Department Care Team (Late st Contact Info) Description 03/06/2020 Lab Requisition [facility] [address] [place] [address] Unknown, Provider Social History Tobacco Use Types [...] Description 11/15/2025 1:45 PM CDT Office Visit [facility] - General Surgery [address] [place] [phone] Mau Grove MD [address] [facility] [address] [place] [address] documented as of this encounter Procedures Procedure Name Priority Date/Time Associated Diagnosis Comments SARS-COV-2 (COVID-19) IN HOUSE Routine 03/05/2020 10:20 AM CDT documented in this encounter Results * SARS-COV-2 (COVID-19) IN HOUSE (03/05/2020 10:20 AM CDT) COVID-19 PCR Not detected Not detected, Invalid 03/07/2020 6:16 AM CDT [facility] Microbiology SPECIMEN FROM NASOPHARYNGEAL STRUCTURE / Unknown Collection / Unknown 03/05/2020 10:20 AM CDT 03/06/2020 1:32 PM CDT Narrative [facility] - 03/07/2020 6:16 AM CDT This Real Time RT-PCR assay was developed and its performance characteristics determined by [facility]. This test has [...] LAB - MICROBIOLOGY ORDERABLES F inal Result [facility] [address] [place], [place] [address], [facility] [phone] documented in this encounter Visit Diagnoses Not on filedocumented in this encounter Additional Health Concerns Infection Onset Date Last Indicated Resolved Time COVID-19 Under Investigation 03/06/2020 03/05/2020 03/07/2020 6:16 AM CDT documented as of this encounter Care Teams Dehydrogenation Operator Relationship Specialty Start Date End Date Sara Dutton PA-C [address] [place] [address] PCP - General Physician Buck Presser 09/30/23 documented as of this encounter
--- OUTSIDE RECORDS SUMMARY | 2025-06-18 13:08 | XMS_ITS | Clinical Summary ---
Author Organization [facility] Medical Office Building B Address [address] [place] [address] Care Team Providers Care Ground Water Technician Name Role Phone Sara Dutton Primary Care [...] diaphragm with pneumothorax status post surgery at [facility] March 14. 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 Malignant melanoma [...] on file Legal Sex Female 2:17 PM TUBE FITTER Gender Identity Not on file Sexual Orientation [...] Comments Blood Pressure 108/74 09/29/2024 1:25 PM TUBE FITTER Pulse 97 09/06/2017 5:41 PM TUBE FITTER Temperature 36.4 C (97.5 F) 09/06/2017 5:41 PM TUBE FITTER Respiratory Rate 16 09/06/2017 5:41 PM TUBE FITTER Oxygen Saturation 99% 09/06/2017 5:41 PM TUBE FITTER Inhaled Oxygen Concentration - - Weight 51.7 kg (114 lb) 09/29/2024 1:25 PM TUBE FITTER Height 162.6 cm (5' 4) 09/29/2024 1:25 PM TUBE FITTER Body Mass Index 19.57 09/29/2024 1:25 PM TUBE FITTER Plan of Treatment Health Maintenance Due Date Last Done Comments Depression Screening 1983 Hepatitis C Screening 1983 Hepatitis B Screening 2001 HPV Vaccines (1 - 3-dose SCD M series) 2010 Varicella Vaccines (2 of 2 - 13+ 2-dose series) 08/12/2014 07/15/2014 Pneumococcal vaccine <65 (2 of 2 - PCV) 08/09/2016 08/09/2015 Breast Cancer Screening-Mammogram 08/13/2024 08/13/2023, 08/13/2023, 07/17/2023, Additional history exists Covid-19 Vaccine (5 - 2024-2 6 season) 2025 06/08/2022, 08/02/2021, 11/22/2020, Additional history exists Influenza Vaccine (#1) 2025 , 06/05/2022, 06/08/2021, Additional history exists Cervical Cancer Screening 09/29/20252024, 09/25/2023, 08/03/2016, Additional history exists Regular Well Visit/Exam 18-64 09/29/2025 09/29/2024, 09/25/2023 DTaP/Tdap/Td Vaccine (3 - Td or Tdap) 11/20/2028 11/20/2018, 09/02/2012 Procedures Procedure Name Priority Date/Time Associated Diagnosis Comments PAP, REFLEX HPV Routine 09/29/2024 1:51 PM TUBE FITTER Well woman exam DIAGNOSTIC MAMMOGRAM BILATERAL W RONY Schedule Routine, Read Routine (OP Routine) 08/13/2023 8:40 AM TUBE FITTER Abnormal mammogram from Last 3 Months or Most Recently Relevant to Health Maintenance Results * Pap, reflex HPV (09/29/2024 1:51 PM TUBE FITTER) CLINICAL INFORMATION: [facility] [place] Comment:Routine exam LMP [facility] Comment:09-22-24 Previous Pap [facility] [place] Comment:NONE GIVEN Prev. Bx [facility] [place] Comment:NONE GIVEN SOURCE: [facility] [place] [place] Comment:Cervix, Endocervix Pap, specimen adequacy [facility] Comment: Satisfactory for evaluation. Endocervical/transformation zone component present. HPV interp [facility] Comment: Cytology Results: Negative for intraepithelial lesion or malignancy. COMMENTS [facility] [place] [place] Comment: This Pap test has been evaluated with computer assisted technology. Telesales Specialist Zina Whitt In [place] Comment: SXB, CT(ASCP) CT screening location: [place] [address] Hammer Setter: JACKIE GARCIA MD, CLIA: [id number] Review mental health program director Clotilde I n [place] Comment: CXS, CT(ASCP) CT screening location: [place] [address] Hammer Setter: JACKIE GARCIA MD, CLIA: [id number] Comment [facility] [place] Comment: EXPLANATORY NOTE: The Pap [...] clinical information. Thin prep 09/29/2024 1:51 PM TUBE FITTER 09/30/2024 1:52 AM TUBE FITTER Anatoly Gill MD LAB CYTOLOGY ORDERABLES Fi nal Result [facility] [place] [place] [phone] * (ABNORMAL) Diagnostic Mammogram Bilateral W Rony (08/13/2023 8:40 AM TUBE FITTER) Anatomical Region Laterality Modality Breast Bilateral Mammography 08/13/2023 11:0 2 AM TUBE FITTER Impressions 08/13/2023 11:02 AM TUBE FITTER 1. 0.9 cm group of punctate and [...] Malissa Hernandez M.D. Narrative 08/13/2023 11:02 AM TUBE FITTER EXAMINATION: BILATERAL DIGITAL DIAGNOSTIC MAMMOGRAM INCLUDING CAD [...] Most Recently Relevant to Health Maintenance Insurance [employer] [place] [facility] Care Teams Ground Water Technician Relationship Specialty Start Date End Date Sara Dutton PA PCP - General Neurosurgery 09/25/23
--- OUTSIDE RECORDS SUMMARY | 2025-06-18 13:08 | XMS_ITS | Encounter Summary ---
Author Organization [facility] Address [address] 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 on file Not on file Not on file documented as of this encounter Plan of Treatment Upcoming Encounters Date Type Department Care Team (Late st Contact Info) Description 07/20/2025 1:30 PM RAIL SPLITTER [facility] [address] [place] [address] Linus Eldridge MD [address] [place] [address] 12/01/2025 1:00 PM CDT Office Visit [facility] [place] [address] [place] [id number] Sara Dutton PAC [address] [place] [address] documented as of this encounter Visit Diagnoses Not on filedocumented in this encounter Additional Health Concerns Infection Onset Date Last Indicated Resolved Time COVID - 19 09/12/2023 09/12/2023 09/22/2023 12:1 6 AM RAIL SPLITTER Assessment Noted Time PHQ-9 Depression Total Score: 0 02/10/20 20 1:00 PM CDT documented as of this encounter Care Teams Lead Programmer Relationship Specialty Start Date End Date Sara Dutton PAC PCP - General Physician Engineering Executive 10/15/17 Linus Eldridge MD [address] [place] [id number] Consulting Physician Pulmonary Disease 12/07/21 Beatriz Snyder APRN, API DEVELOPER [address] [place] [address] Nurse Practitioner Advanced Practice Nurse 03/14/23 documented as of this encounter
== END 2025-06-18 12:58 | disposition home or self-care (01) ==
PROVIDERS: PCP Physician Assistant; Visit Provider Surgery
DX: R92.8 Other abnormal and inconclusive findings on diagnostic imaging of breast (principal); N64.4 Mastodynia; N60.01 Solitary cyst of right breast
CPT/HCPCS: 76641; 77062; 77066; G0279